=== PATIENT | female | born 1945 | race Caucasian/White ===

== ENCOUNTER 2020-05-29 14:11 | Outpatient (REF) | payer MEDICARE, SELFPAY | END 2020-05-29 14:12 | disposition home or self-care (01) | LOC: HO.LAB 14:11 | PROVIDERS: Visit Provider Internal Medicine | DX: Z20.822 Contact with and (suspected) exposure to COVID-19 (principal) | CPT/HCPCS: 36415; C9803; U0003 ==

== ENCOUNTER 2023-09-09 13:34 | Outpatient (AMB) | payer MEDICARE, SELFPAY ==
--- NOTE | 2023-09-09 13:39 | MHC.PC.OV ---
Vital Signs 09/09/23 13:40 Height 5 ft 5.5 in Weight 282 lb BMI 46.2 BP 144/86 H Blood Pressure Location Lt brachial Position Sitting Pulse 82 Pulse Source Pulse Oximeter Pulse Oximetry (%) 96 Oxygen Delivery Method Room Air Intake Visit Reasons: New Patient/Medications Allergies beeswax [BEESWAX] Allergy (Severe, Verified 09/09/23 14:12) ANAPHYLAXIS adhesive tape [ADHESIVE TAPE] Allergy (Mild, Verified 09/09/23 14:12) RASH ciprofloxacin [From CIPRO] Allergy (Mild, Verified 09/09/23 14:12) FIBROMYALGIA ISSUES Bfvolry-JDA-NsK Reductase Inhibitor [NUGORGN-UFW-DAS REDUCTASE INHIBITOR] Allergy (Mild, Verified 09/09/23 14:12) MUSCLE BREAK DOWN succinylcholine [SUCCINYLCHOLINE] Allergy (Mild, Verified 09/09/23 14:12) CANNOT WALK evolocumab [From Repatha SureClick] Adverse Reaction (Severe, Verified 09/09/23 14:12) Diarrhea metoprolol Adverse Reaction (Severe, Verified 09/09/23 14:12) Dizziness topiramate Adverse Reaction (Severe, Verified 09/09/23 14:12) Anxiety Medication List - Last Reconciled 09/09/23 by Rosario Castillo MD ascorbate calcium (vitamin C) 500 mg PO DAILY aspirin 81 mg PO DAILY atenolol 25 mg PO DAILY Bacillus coagulans cells PO calcium carbonate (Calcium) 600 mg PO DAILY celecoxib (Celebrex) 200 mg PO DAILY cholecalciferol (vitamin D3) 25 mcg PO DAILY colesevelam (WelChol) 625 mg PO BID diazepam 5 mg PO BEDTIME PRN estradiol 0.01%(0.1mg/gram) 1 g vaginal QWEEK ezetimibe (Zetia) 10 mg PO DAILY ferrous sulfate (FeroSul) 325 mg PO DAILY fluticasone propionate 50 mcg/actuation 2 sprays intranasal DAILY gabapentin 600 mg PO BEDTIME gabapentin 300 mg PO QAM levothyroxine (Levoxyl) 150 mcg PO DAILY lorazepam (Ativan) 0.5 mg PO BEDTIME PRN magnesium 250 mg PO DAILY melatonin 15 mg PO BEDTIME PRN meloxicam 15 mg PO DAILY metformin 1,000 mg PO BID niacin 500 mg PO BID pantoprazole (Protonix) 40 mg PO DAILY pioglitazone (Actos) 30 mg PO DAILY tizanidine 4 mg PO BEDTIME PRN triamcinolone acetonide 0.1% 1 appl topical DAILY venlafaxine ER 150 mg PO DAILY Tobacco use date assessed: 09/09/23 Fall risk assessment: No Falls in past year Last assessed Fall Risk: 09/09/23 Dental Screening Dental Screen Date: 09/09/23 Did you have a dental visit in the last 12 months?: Yes Did you have a dental problem in the last 6 months where you did not have access to dental care?: No Was dental information given to patient?: Patient has dentist HPI New Patient/Medications HPI Details 78-year-old obese female with diabetes mellitus hypothyroidism hypercholesterolemia obstructive sleep apnea renal insufficiency and hepatic steatosis coming in for the 1st time. AICn - has been good- does see ENDO in [facility] Dr. Green. Dx with fibromylagia- on gabapentin, gets blood work Q [address] Curry has cataract mild macular deg. , UTI states macrodantin state not working but cephalexin works. also has diverticulitis cephalexin and flagyl works PFSH Medical History (Updated 09/09/23 @ 14:48 by Rosario Castillo MD) Diverticular disease Surgical History (Updated 09/07/23 @ 16:33 by Rosario Castillo MD) H/O vaginal hysterectomy Social History Housing: House Patient Tobacco Use Status: Never used Tobacco Tobacco use type: Cigarette e-Cigarette/Vaping Use: Never Used Second Hand Smoke Exposure: No service: No Current occupational status: retired and disabled Cognitive needs: No Hearing needs: No Vision needs: Yes Questionnaire PHQ-9 Over the last 2 weeks, how often have you been bothered by any of the following problems? 1. Little interest or pleasure in doing things: not at all 2. Feeling down, depressed, or hopeless: not at all 3. Trouble falling or staying asleep, or sleeping too much: not at all 4. Feeling tired or having little energy: not at all 5. Poor appetite or overeating: not at all 6. Feeling bad about yourself - or that you are a failure or have let yourself or your family down: not at all 7. Trouble concentrating on things, such as reading the newspaper or watching television: not at all 8. Moving or speaking so slowly that other people could have noticed. Or the opposite - being so fidgety or restless that you have been moving around a lot more than usual: not at all 9. Thoughts that you would be better off or of hurting yourself in some way: not at all Total score: 0 Depression Screening Interpretation: Negative Depression Screening Done: Yes Source: Developed by Drs. Mann Joseph, Lynn Calderón, Alexi Mckeon and colleagues, with an educational kosta from [employer]. Thrive Questionnaire Date Thrive assessed: 09/09/23 I am a: Patient What is your living situation today?: I have a steady place to live Within the past 12 months, did the food you bought not last and you didn't have the money to get more?: Never true Within the past 12 months, did you worry whether your food would run out before you got money to buy more?: Never true Do you have trouble paying for medicines?: No Do you have trouble getting transportation to medical appointments?: No Do you have trouble paying your heating and electricity bill?: No Do you have trouble taking care of your child, family member or friend?: No Do you have trouble with day-to-day activities such as bathing, preparing meals, shopping, managing finances, etc.?: No Are you currently unemployed and looking for a job?: No Are you interested in more education?: No Currently or been in a relationship where the following occur: no concerns reported THRIVE Score: 0 AUDIT C Alcohol Use Questionnaire (AUDIT-C) 1. How often do you have a drink containing alcohol?: Never 3. How often do you have six or more drinks on one occasion?: Never Total Score: 0 TROY-7 AMB Questionnaire TROY-7 Date TROY - 7 assessed: 09/09/23 Feeling nervous, anxious, or on edge: 0 = Not at all Not being able to stop or control worryin = Not at all Worrying too much about different things: 0 = Not at all Trouble relaxin = Not at all Being so restless that it is hard to sit still: 0 = Not at all Becoming easily annoyed or irritable: 0 = Not at all Feeling afraid as if something awful might happen: 0 = Not at all Total TROY-7 score (0-4 normal; 5-9 mild; 10-14 moderate; 15-21 severe): 0 Source: Developed by Drs. Mann Joseph, Lynn Calderón, Alexi Mckeon and colleagues, with an educational kosta from [employer]. Physical exam (Primary Care) Vital Signs: Last Vital Signs Pulse 82 09/09/23 13:40 BP 144/86 H 09/09/23 13:40 Pulse Ox 96 09/09/23 13:40 Oxygen Delivery Method Room Air 09/09/23 13:40 BMI result Body Mass Index 46.2 Tobacco/Smoking Status: Tobacco use Status Tobacco use date assessed 09/09/23 09/09/23 14:27 Patient Tobacco Use Status Never used Tobacco 09/09/23 14:27 Tobacco use type Cigarette 09/09/23 14:27 e-Cigarette/Vaping Use Never Used 09/09/23 14:27 PHQ-9: PHQ-9 Score PHQ-9: Total score 0 09/09/23 14:27 Depression Screening Interpretation: Negative Thrive Assessment: Date of Thrive Assessment Date Thrive assessed 09/09/23 09/09/23 13:40 Currently or been in a relationship where the following occur: no concerns reported Const General: alert; No acute distress Eyes Conjunctivae: conjunctivae normal Resp Auscultation: clear to auscultation bilaterally Cardio Rate: regular rate Rhythm: regular rhythm GI Inspection: Yes normal to inspection Extrem General: Yes normal to inspection and No edema Results AMB Hemoglobin A1c AMB Hemoglobin A1c 5.4 % Last Edit by April Parekh CMA on 09/09/23 14:28 Assessment and Plan Assessment & Plan (1) Type 2 diabetes mellitus with hyperglycemia: Code(s): E11.65 - Type 2 diabetes mellitus with hyperglycemia Plan: Decrease the amount of carbohydrate intake, pasta, bread, rice and potatoes are all sugar and that is aside from all the sweet stuff, remember that fruits are good but they are Sweet also. Hemoglobin A1c goal of less than 7.0. seeing ENDO (2) Hypercholesterolemia: Code(s): E78.00 - Pure hypercholesterolemia, unspecified Plan: Avoid fried foods, chicken skin, eggs, butter margarine, pastries and meat. Be it pork or beef they have a lot of cholesterol LDL goal of less than 100 and triglyceride of less than 150.cannot tolerate Statins (3) Hypothyroid: Code(s): E03.9 - Hypothyroidism, unspecified Plan: Will need retesting. sees ENDO (4) BROWN (nonalcoholic steatohepatitis): Code(s): K75.81 - Nonalcoholic steatohepatitis (BROWN) Plan: Low-fat diet and exercise (5) Obstructive sleep apnea: Comment: CPAP [address] Darling Pulmonary Code(s): G47.33 - Obstructive sleep apnea (adult) (pediatric) Plan: continues to use the CPAP > 4 hours and benefits patient (6) Renal insufficiency: Code(s): N28.9 - Disorder of kidney and ureter, unspecified Plan: Will need follow-up., keep well hydrated (7) Generalized anxiety disorder: Comment: decline counselling 08/2023 Code(s): F41.1 - Generalized anxiety disorder (8) Hypertension: Code(s): I10 - Essential (primary) hypertension (9) Vaginal atrophy: Code(s): N95.2 - Postmenopausal atrophic vaginitis (10) Breast cancer screening by mammogram: Code(s): Z12.31 - Encounter for screening mammogram for malignant neoplasm of breast (11) Cervical disc herniation: Comment: 07/2007 c 5-6 LEft impinging SC mild L sided neural formaminal stenosis injections PSS Code(s): M50.20 - Other cervical disc displacement, unspecified cervical region Orders: Orders XR DEXA axial skeleton Today E11.65 - Type 2 diabetes mellitus with hyperglycemia, M81.0 - Age-related osteoporosis without current pathological fracture AMB Hemoglobin A1c Today Z13.9 - Encounter for screening, unspecified MM tomosynthesis screening BI Today Z12.31 - Encounter for screening mammogram for malignant neoplasm of breast Medications: New atenolol 25 mg PO DAILY 90 days 90 tabs 3RF I10 - Essential (primary) hypertension venlafaxine ER 150 mg PO DAILY 90 caps 0RF F41.1 - Generalized anxiety disorder estradiol 0.01%(0.1mg/gram) 0.25 appful vaginal 2XW 42.5 grams 1RF N95.2 - Postmenopausal atrophic vaginitis Coding Level of Care Code New Pt Level 4 (44032) Diagnoses Type 2 diabetes mellitus with hyperglycemia E11.65 Hypercholesterolemia E78.00 Hypothyroid E03.9 BROWN (nonalcoholic steatohepatitis) K75.81 Obstructive sleep apnea G47.33 Renal insufficiency N28.9 Generalized anxiety disorder F41.1 Hypertension I10 Vaginal atrophy N95.2 Breast cancer screening by mammogram Z12.31 Cervical disc herniation M50.20
[2023-09-09 13:40] VITALS: BP 144/86; PULSE 82; O2SAT 96; BMI 46.2
== END 2023-09-09 15:07 | disposition home or self-care (01) ==
PROVIDERS: PCP Internal Medicine; Visit Provider Internal Medicine
DX: E11.65 Type 2 diabetes mellitus with hyperglycemia (principal); E78.00 Pure hypercholesterolemia, unspecified; E03.9 Hypothyroidism, unspecified; K75.81 Nonalcoholic steatohepatitis (NASH); G47.33 Obstructive sleep apnea (adult) (pediatric); N28.9 Disorder of kidney and ureter, unspecified; F41.1 Generalized anxiety disorder; I10 Essential (primary) hypertension; N95.2 Postmenopausal atrophic vaginitis; M50.20 Other cervical disc displacement, unspecified cervical region
CPT/HCPCS: 83036; 99204

== ENCOUNTER 2024-02-09 13:26 | Outpatient (AMB) | payer MEDICARE, SELFPAY ==
--- NOTE | 2024-02-09 13:30 | MHC.PC.OV ---
Vital Signs 02/09/24 13:32 Height 5 ft 8 in Weight 288 lb BMI 43.8 BP 142/84 H Blood Pressure Location Lt brachial Position Sitting Pulse 66 Pulse Source Pulse Oximeter Pulse Oximetry (%) 96 Oxygen Delivery Method Room Air Intake Visit Reasons: PE Intake Note: Patient here for a physical exam Nurse Epidemiologist Required: No Accompanied by: Self / Same As Patient Allergies beeswax [BEESWAX] Allergy (Severe, Verified 02/09/24 13:34) ANAPHYLAXIS adhesive tape [ADHESIVE TAPE] Allergy (Mild, Verified 02/09/24 13:34) RASH ciprofloxacin [From CIPRO] Allergy (Mild, Verified 02/09/24 13:34) FIBROMYALGIA ISSUES Vwkcuod-WQT-WlK Reductase Inhibitor [YATHXBQ-UMD-LSW REDUCTASE INHIBITOR] Allergy (Mild, Verified 02/09/24 13:34) MUSCLE BREAK DOWN succinylcholine [SUCCINYLCHOLINE] Allergy (Mild, Verified 02/09/24 13:34) CANNOT WALK evolocumab [From Repatha SureClick] Adverse Reaction (Severe, Verified 02/09/24 13:34) Diarrhea metoprolol Adverse Reaction (Severe, Verified 02/09/24 13:34) Dizziness topiramate Adverse Reaction (Severe, Verified 02/09/24 13:34) Anxiety Medication List - Last Reconciled 02/09/24 by Rosario Castillo MD ascorbate calcium (vitamin C) 500 mg PO DAILY aspirin 81 mg PO DAILY atenolol 25 mg PO DAILY 90 days Bacillus coagulans cells PO calcium carbonate (Calcium 600) 600 mg PO DAILY celecoxib (Celebrex) 200 mg PO DAILY cholecalciferol (vitamin D3) 25 mcg PO DAILY colesevelam (WelChol) 625 mg PO BID diazepam 5 mg PO BEDTIME PRN estradiol 0.01%(0.1mg/gram) 0.25 appful vaginal 2XW ezetimibe (Zetia) 10 mg PO DAILY ferrous sulfate (FeroSul) 325 mg PO DAILY fluticasone propionate 50 mcg/actuation 2 sprays intranasal DAILY gabapentin 600 mg PO BEDTIME gabapentin 300 mg PO QAM levothyroxine (Levoxyl) 150 mcg PO DAILY lorazepam (Ativan) 0.5 mg PO BEDTIME PRN magnesium 250 mg PO DAILY melatonin 15 mg PO BEDTIME PRN meloxicam 15 mg PO DAILY metformin 1,000 mg PO BID niacin 500 mg PO BID pantoprazole (Protonix) 40 mg PO DAILY pioglitazone (Actos) 30 mg PO DAILY tizanidine 4 mg PO BEDTIME PRN [trazodone 25 mg PO .QD] triamcinolone acetonide 0.1% 1 appl topical DAILY venlafaxine ER 150 mg PO DAILY Tobacco use date assessed: 09/09/23 Fall risk assessment: No Falls in past year Last assessed Fall Risk: 02/09/24 Dental Screening Dental Screen Date: 02/09/24 Did you have a dental visit in the last 12 months?: Yes Did you have a dental problem in the last 6 months where you did not have access to dental care?: No Was dental information given to patient?: Patient has dentist HPI PE HPI Details 78-year-old morbidly obese female with controlled diabetes mellitus hypothyroid hypercholesterolemia Cabrera obstructive sleep apnea renal insufficiency generalized anxiety disorder hypertension coming in for physical exam last seen in August 2023. Patient's mammogram is up-to-date patient received flu vaccine and COVID vaccine in 01/15/2024. Reviewed the notes saw Ophthalmology October 2023 cataracts noted dry macular degeneration. Patient had an MRI of the cervical spine in July 2007 showing disc herniation and C5-C6 to the left impinging upon the cervical spinal cord without significant cord compression and encroaching upon the left neural foramen mild left-sided neural foraminal stenosis mild left paramedian central disc protrusion C6-C7. Seeing Dr. Norma HA. complains of arthritis pain. [facility] Medical History (Updated 02/09/24 @ 14:29 by Rosario Castillo MD) Diverticular disease Surgical History H/O vaginal hysterectomy Social History (Updated 02/09/24 @ 14:15 by Rosario Castillo MD) Housing: House Alcohol intake: never Patient Tobacco Use Status: Never used Tobacco e-Cigarette/Vaping Use: Never Used Second Hand Smoke Exposure: No service: No Current occupational status: retired and disabled Cognitive needs: No Hearing needs: No Vision needs: Yes Questionnaire PHQ-9 Over the last 2 weeks, how often have you been bothered by any of the following problems? 1. Little interest or pleasure in doing things: not at all 2. Feeling down, depressed, or hopeless: not at all 3. Trouble falling or staying asleep, or sleeping too much: not at all 4. Feeling tired or having little energy: not at all 5. Poor appetite or overeating: not at all 6. Feeling bad about yourself - or that you are a failure or have let yourself or your family down: not at all 7. Trouble concentrating on things, such as reading the newspaper or watching television: not at all 8. Moving or speaking so slowly that other people could have noticed. Or the opposite - being so fidgety or restless that you have been moving around a lot more than usual: not at all 9. Thoughts that you would be better off or of hurting yourself in some way: not at all Total score: 0 Depression Screening Interpretation: Negative Depression Screening Done: Yes Source: Developed by Drs. Mann Joseph, Lynn Calderón, Alexi Mckeon and colleagues, with an educational kosta from [employer]. Thrive Questionnaire Date Thrive assessed: 02/08/24 I am a: Patient What is your living situation today?: I have a steady place to live Within the past 12 months, did the food you bought not last and you didn't have the money to get more?: I choose not to answer this question Within the past 12 months, did you worry whether your food would run out before you got money to buy more?: I choose not to answer this question Do you have trouble paying for medicines?: I choose not to answer this question Do you have trouble getting transportation to medical appointments?: No Do you have trouble paying your heating and electricity bill?: I choose not to answer this question Do you have trouble taking care of your child, family member or friend?: No Do you have trouble with day-to-day activities such as bathing, preparing meals, shopping, managing finances, etc.?: No Are you currently unemployed and looking for a job?: No Are you interested in more education?: No Please select the resources that you would like help with: None Currently or been in a relationship where the following occur: I choose not to answer THRIVE Score: 0 AUDIT C Alcohol Use Questionnaire (AUDIT-C) 1. How often do you have a drink containing alcohol?: Never Total Score: 0 TROY-7 AMB Questionnaire TROY-7 Date TROY - 7 assessed: 02/09/24 Feeling nervous, anxious, or on edge: 0 = Not at all Not being able to stop or control worryin = Not at all Worrying too much about different things: 0 = Not at all Trouble relaxin = Not at all Being so restless that it is hard to sit still: 0 = Not at all Becoming easily annoyed or irritable: 0 = Not at all Feeling afraid as if something awful might happen: 0 = Not at all Total TROY-7 score (0-4 normal; 5-9 mild; 10-14 moderate; 15-21 severe): 0 Source: Developed by Drs. Mann Joseph, Lynn Calderón, Alexi Mckeon and colleagues, with an educational kosta from [employer]. Review of Systems Const Denies poor appetite and Denies weakness Eyes Denies no additional complaints ENT Reports Normal hearing present, Denies dizziness, Denies nasal congestion, Denies tinnitus and Denies sore throat Card Denies chest pain, Denies syncope, Denies rapid heart rate and Denies dyspnea Resp Denies cough and Denies dyspnea GI Denies change in stool character, Reports constipation, Denies diarrhea, Denies nausea and Denies vomiting Denies urinary frequency, Denies difficulty voiding and Denies dysuria Neuro Reports Normal hearing present, Denies confusion, Denies dizziness, Denies syncope and Denies weakness Psych Denies confusion Physical exam (Primary Care) Vital Signs: Last Vital Signs Pulse 66 02/09/24 13:32 BP 142/84 H 02/09/24 13:32 Pulse Ox 96 02/09/24 13:32 Oxygen Delivery Method Room Air 02/09/24 13:32 BMI result Body Mass Index 43.8 Tobacco/Smoking Status: Tobacco use Status Tobacco use date assessed 09/09/23 02/09/24 13:31 Patient Tobacco Use Status Never used Tobacco 02/09/24 13:31 Tobacco use type 02/09/24 13:44 e-Cigarette/Vaping Use Never Used 02/09/24 13:31 PHQ-9: PHQ-9 Score PHQ-9: Total score 0 02/09/24 13:44 Depression Screening Interpretation: Negative Thrive Assessment: Date of Thrive Assessment Date Thrive assessed 02/08/24 02/09/24 13:31 Currently or been in a relationship where the following occur: I choose not to answer Const General: No confusion Orientation/consciousness: No confusion HENMT Head: Yes normocephalic Ears: external ears normal and TM's normal bilaterally Face and sinus: Yes normal facial exam Mouth: moist mucous membranes Throat: Yes tonsils normal Eyes Conjunctivae: conjunctivae normal Pupils: Equal, round and reactive pupils present and Pupil accommodation reflex normal Direct Ophthalmoscopy: normal light reflex Neck Neck: No lymphadenopathy Thyroid: Thyroid normal Chest Chest palpation & inspection: normal inspection of the chest Resp Effort & Inspection: normal respiratory effort and no audible wheezes Auscultation: clear to auscultation bilaterally, no crackles, no wheezes and lung sounds not diminished Cardio Rate: regular rate Rhythm: regular rhythm Peripheral pulses: radial pulses present and dorsalis pedis present GI Other: guaiac pos stools. pin prick and pedal pulses good Palpation (GI): no masses Auscultation: normal bowel sounds and normoactive bowel sounds Skin General skin exam: no rashes or lesions noted Rashes: no rashes Neuro General: No confusion Cranial nerves: Yes Equal, round and reactive pupils present and Yes Normal hearing present Cognition (Neuro): normal cognition Gait exam (Neuro): Normal gait present Motor exam (neuro): 5/5 motor strength present throughout Deep tendon reflexes (DTR's): Right brachioradialis reflex intensity grade: 2+, Left brachioradialis reflex intensity grade: 2+, Right patellar reflex intensity grade: 2+ and Left patellar reflex intensity grade: 2+ Extrem General: No edema Assessment and Plan Assessment & Plan (1) Annual physical exam: Code(s): Z00.00 - Encounter for general adult medical examination without abnormal findings Plan: Patient is advised to eat healthy, keep well hydrated, keep active and have adequate sleep. (2) Type 2 diabetes mellitus with hyperglycemia: Code(s): E11.65 - Type 2 diabetes mellitus with hyperglycemia Plan: Decrease the amount of carbohydrate intake, pasta, bread, rice and potatoes are all sugar and that is aside from all the sweet stuff, remember that fruits are good but they are Sweet also. Hemoglobin A1c goal of less than 7.0. Patient on metformin a 1000 mg twice a day Actos 30 mg once a day (3) Hypercholesterolemia: Code(s): E78.00 - Pure hypercholesterolemia, unspecified Plan: Avoid fried foods, chicken skin, eggs, butter margarine, pastries and meat. Be it pork or beef they have a lot of cholesterol LDL goal of less than 100 and triglyceride of less than 150 patient not on any cholesterol medication patient on Zetia (4) Hypothyroid: Code(s): E03.9 - Hypothyroidism, unspecified Plan: Continue with thyroid medication patient is advised to get the blood work done (5) CABRERA (nonalcoholic steatohepatitis): Code(s): K75.81 - Nonalcoholic steatohepatitis (CABRERA) Plan: Low-fat diet and exercise (6) Obstructive sleep apnea: Comment: CPAP [address] Darling Pulmonary Code(s): G47.33 - Obstructive sleep apnea (adult) (pediatric) Plan: Continue to use the CPAP more than 4 hours a night and benefits from this. (7) Cervical disc herniation: Comment: 07/2007 c 5-6 LEft impinging SC mild L sided neural formaminal stenosis injections PSS Code(s): M50.20 - Other cervical disc displacement, unspecified cervical region Plan: Keep active (8) Generalized anxiety disorder: Comment: decline counselling 08/2023 Code(s): F41.1 - Generalized anxiety disorder Plan: Continue with present medication (9) Hypertension: Code(s): I10 - Essential (primary) hypertension Plan: Continue with blood pressure medication. Decrease salt intake and exercise patient on atenolol 25 mg once a day (10) Guaiac + stool: Code(s): R19.5 - Other fecal abnormalities Plan: will stop iron and ff up (11) Anemia: Code(s): D64.9 - Anemia, unspecified Orders: Orders Complete Blood Count Auto Diff Today D64.9 - Anemia, unspecified Reticulocyte Count Today D64.9 - Anemia, unspecified IRON PROFILE Today D64.9 - Anemia, unspecified Vitamin B12 and Folate Today D64.9 - Anemia, unspecified Ferritin Today D64.9 - Anemia, unspecified Medications: Changed From atenolol 25 mg PO DAILY 90 days 90 tabs 3RF I10 - Essential (primary) hypertension To atenolol 50 mg PO DAILY 90 days 90 tabs 3RF I10 - Essential (primary) hypertension Refilled estradiol 0.01%(0.1mg/gram) 0.25 appful vaginal 2XW 42.5 grams 1RF N95.2 - Postmenopausal atrophic vaginitis venlafaxine ER 150 mg PO DAILY 90 caps 0RF F41.1 - Generalized anxiety disorder Coding Level of Care Code Est Pt Prev Care >65y(65719) Diagnoses Annual physical exam Z00.00 Type 2 diabetes mellitus with hyperglycemia E11.65 Hypercholesterolemia E78.00 Hypothyroid E03.9 CABRERA (nonalcoholic steatohepatitis) K75.81 Obstructive sleep apnea G47.33 Cervical disc herniation M50.20 Generalized anxiety disorder F41.1 Hypertension I10 Guaiac + stool R19.5 Anemia D64.9
[2024-02-09 13:32] VITALS: BP 142/84; PULSE 66; O2SAT 96; BMI 43.8
== END 2024-02-09 14:45 | disposition home or self-care (01) ==
PROVIDERS: PCP Internal Medicine; Visit Provider Internal Medicine
DX: Z00.00 Encounter for general adult medical examination without abnormal findings (principal); E11.65 Type 2 diabetes mellitus with hyperglycemia; E78.00 Pure hypercholesterolemia, unspecified; E03.9 Hypothyroidism, unspecified; K75.81 Nonalcoholic steatohepatitis (NASH); G47.33 Obstructive sleep apnea (adult) (pediatric); M50.20 Other cervical disc displacement, unspecified cervical region; F41.1 Generalized anxiety disorder; I10 Essential (primary) hypertension; R19.5 Other fecal abnormalities; D64.9 Anemia, unspecified

== ENCOUNTER → 2024-02-09 13:26 | Outpatient (BNVA) | payer MEDICARE, SELFPAY | PROVIDERS: PCP Internal Medicine; Visit Provider Internal Medicine ==

== ENCOUNTER 2024-05-26 09:53 | Outpatient (AMB) | payer MEDICARE, SELFPAY ==
[2024-05-26 09:56] VITALS: BP 136/70; PULSE 68; O2SAT 97; BMI 43.3
--- NOTE | 2024-05-26 09:56 | MHC.PC.OV ---
Vital Signs 05/26/24 09:56 Height 5 ft 8 in Weight 285 lb BMI 43.3 BP 136/70 Blood Pressure Location Lt brachial Position Sitting Pulse 68 Pulse Source Pulse Oximeter Pulse Oximetry (%) 97 Oxygen Delivery Method Room Air Intake Visit Reasons: DM, guaiac pos stools Allergies beeswax [BEESWAX] Allergy (Severe, Verified 05/26/24 09:57) ANAPHYLAXIS adhesive tape [ADHESIVE TAPE] Allergy (Mild, Verified 05/26/24 09:57) RASH ciprofloxacin [From CIPRO] Allergy (Mild, Verified 05/26/24 09:57) FIBROMYALGIA ISSUES Isjatyk-NEA-AgX Reductase Inhibitor [PEDIRJF-FAG-KHS REDUCTASE INHIBITOR] Allergy (Mild, Verified 05/26/24 09:57) MUSCLE BREAK DOWN succinylcholine [SUCCINYLCHOLINE] Allergy (Mild, Verified 05/26/24 09:57) CANNOT WALK evolocumab [From Repatha SureClick] Adverse Reaction (Severe, Verified 05/26/24 09:57) Diarrhea metoprolol Adverse Reaction (Severe, Verified 05/26/24 09:57) Dizziness topiramate Adverse Reaction (Severe, Verified 05/26/24 09:57) Anxiety icosapent ethyl [From Vascepa] Adverse Reaction (Intermediate, Unverified 05/26/24 10:37) Diarrhea Tobacco use date assessed: 05/26/24 Fall risk assessment: No Falls in past year Last assessed Fall Risk: 05/26/24 Dental Screening Dental Screen Date: 05/26/24 Did you have a dental visit in the last 12 months?: No Did you have a dental problem in the last 6 months where you did not have access to dental care?: No Was dental information given to patient?: Patient has dentist HPI DM, guaiac pos stools HPI Details The patient is a 79-year-old female presenting with concerns regarding hyperlipidemia and chronic kidney disease. The patient was supposed to have cholesterol levels checked in April but delayed until after the holidays. She cannot tolerate statins and is currently on Zetia, with cholesterol at 146 in January, which is above target due to diabetes. Recent trials of Nexlitol, Bempedoic acid, and Vasepa fish oil have led to adverse effects like diarrhea. The patient experiences stomach pain with the recommended dosage of Wellchol and has reduced intake. Concerns are heightened due to potential cost increases of medications like estradiol cream, which has increased to tier 3, prompting the patient to source it affordably online. The patient adheres to a diet limiting fried foods and remains compliant with CPAP usage for obstructive sleep apnea. Lisinopril was discussed for kidney protection, with current Valsartan dosing increased due to blood pressure variability. Current eGFR slightly improved to 54 from 52. There are no plans to change dietary habits significantly, such as milk consumption, despite potential recommendations for increased water intake. Depression is noted as seasonal in nature, requiring Venlafaxine, with no active counseling in place. Other health management discussions included monitoring bone density following an unremarkable recent scan, continuing an active lifestyle per capacity, and a negative stool test done while on iron supplements. Family history includes psoriatic arthritis in her daughter. [facility]LY [facility] Medical History (Updated 02/20/24 @ 17:17 by Rosario Castillo MD) Diverticular disease Surgical History H/O vaginal hysterectomy Social History (Updated 02/09/24 @ 14:15 by Rosario Castillo MD) Housing: House Alcohol intake: never Patient Tobacco Use Status: Never used Tobacco Tobacco use type: Cigarette e-Cigarette/Vaping Use: Never Used Second Hand Smoke Exposure: No service: No Current occupational status: retired and disabled Cognitive needs: No Hearing needs: No Vision needs: Yes Questionnaire PHQ-9 Over the last 2 weeks, how often have you been bothered by any of the following problems? 1. Little interest or pleasure in doing things: not at all 2. Feeling down, depressed, or hopeless: not at all 3. Trouble falling or staying asleep, or sleeping too much: not at all 4. Feeling tired or having little energy: not at all 5. Poor appetite or overeating: not at all 6. Feeling bad about yourself - or that you are a failure or have let yourself or your family down: not at all 7. Trouble concentrating on things, such as reading the newspaper or watching television: not at all 8. Moving or speaking so slowly that other people could have noticed. Or the opposite - being so fidgety or restless that you have been moving around a lot more than usual: not at all 9. Thoughts that you would be better off or of hurting yourself in some way: not at all Total score: 0 Depression Screening Interpretation: Negative Depression Screening Done: Yes Source: Developed by Drs. Mann Joseph, Lynn Calderón, Alexi Mckeon and colleagues, with an educational kosta from [employer]. Thrive Questionnaire Date Thrive assessed: 05/26/24 I am a: Patient What is your living situation today?: I have a steady place to live Within the past 12 months, did the food you bought not last and you didn't have the money to get more?: I choose not to answer this question Within the past 12 months, did you worry whether your food would run out before you got money to buy more?: I choose not to answer this question Do you have trouble paying for medicines?: I choose not to answer this question Do you have trouble getting transportation to medical appointments?: No Do you have trouble paying your heating and electricity bill?: I choose not to answer this question Do you have trouble taking care of your child, family member or friend?: No Do you have trouble with day-to-day activities such as bathing, preparing meals, shopping, managing finances, etc.?: No Are you currently unemployed and looking for a job?: No Are you interested in more education?: No Please select the resources that you would like help with: None Currently or been in a relationship where the following occur: I choose not to answer THRIVE Score: 0 AUDIT C Alcohol Use Questionnaire (AUDIT-C) 3. How often do you have six or more drinks on one occasion?: Never Total Score: 0 TROY-7 AMB Questionnaire TROY-7 Date TROY - 7 assessed: 05/26/24 Feeling nervous, anxious, or on edge: 0 = Not at all Not being able to stop or control worryin = Not at all Worrying too much about different things: 0 = Not at all Trouble relaxin = Not at all Being so restless that it is hard to sit still: 0 = Not at all Becoming easily annoyed or irritable: 0 = Not at all Feeling afraid as if something awful might happen: 0 = Not at all Total TROY-7 score (0-4 normal; 5-9 mild; 10-14 moderate; 15-21 severe): 0 Source: Developed by Jos Booet B.W. Stephane, Alexi Mckeon and colleagues, with an educational kosta from [employer]. Physical exam (Primary Care) Vital Signs: Last Vital Signs Pulse 68 05/26/24 09:56 BP 136/70 05/26/24 09:56 Pulse Ox 97 05/26/24 09:56 Oxygen Delivery Method Room Air 05/26/24 09:56 Care Plan Goal for BP management: guaiac stool negative BMI result Body Mass Index 43.3 Tobacco/Smoking Status: Tobacco use Status Tobacco use date assessed 05/26/24 05/26/24 10:04 Patient Tobacco Use Status Never used Tobacco 05/26/24 09:58 Tobacco use type Cigarette 05/26/24 10:04 e-Cigarette/Vaping Use Never Used 05/26/24 09:58 PHQ-9: PHQ-9 Score PHQ-9: Total score 0 05/26/24 10:33 Depression Screening Interpretation: Negative Thrive Assessment: Date of Thrive Assessment Date Thrive assessed 05/26/24 05/26/24 09:58 Currently or been in a relationship where the following occur: I choose not to answer Const General: alert; No acute distress Eyes Conjunctivae: conjunctivae normal Resp Auscultation: clear to auscultation bilaterally Cardio Rate: regular rate Rhythm: regular rhythm GI Inspection: Yes normal to inspection Extrem General: Yes normal to inspection and No edema Coding Level of Care Code Est Pt Level 4 (67470) Complex EM visit Add On G2211 Diagnoses Type 2 diabetes mellitus with hyperglycemia E11.65 Hypercholesterolemia E78.00 Hypothyroid E03.9 BROWN (nonalcoholic steatohepatitis) K75.81 Obstructive sleep apnea G47.33 Generalized anxiety disorder F41.1 Hypertension I10 Assessment & Plan Assessment & Plan (1) Type 2 diabetes mellitus with hyperglycemia: Code(s): E11.65 - Type 2 diabetes mellitus with hyperglycemia Category: Medical (2) Hypercholesterolemia: Code(s): E78.00 - Pure hypercholesterolemia, unspecified Category: Medical (3) Hypothyroid: Code(s): E03.9 - Hypothyroidism, unspecified Category: Medical (4) BROWN (nonalcoholic steatohepatitis): Code(s): K75.81 - Nonalcoholic steatohepatitis (BROWN) Category: Medical (5) Obstructive sleep apnea: Comment: CPAP [address] [facility]ling [facility] Code(s): G47.33 - Obstructive sleep apnea (adult) (pediatric) Category: Medical (6) Generalized anxiety disorder: Comment: decline counselling 08/2023 Code(s): F41.1 - Generalized anxiety disorder Category: Medical (7) Hypertension: Code(s): I10 - Essential (primary) hypertension Category: Medical Plan - Hyperlipidemia: Continue Zetia; limit other cholesterol lowering medications due to side effects. Discuss further cholesterol management with a specialist. Follow dietary guidelines to reduce cholesterol intake. - Chronic Kidney Disease Stage 3: Initiate low dose lisinopril to protect kidney function; monitor kidney function regularly. Maintain hydration and avoid NSAIDs. - Obstructive Sleep Apnea: Continue with CPAP therapy as prescribed. Monitor usage and efficacy. - Gastrointestinal side effects: Manage dosage of Wellchol to minimize stomach pain and mitigate occurrence of diarrhea with fish oil. - Depression: Continue Venlafaxine. Monitor symptoms, no immediate need for counseling. - Medication Costs: Advise on potential alternative sources for cost-management of prescriptions. - Musculoskeletal Issues: Continue current management of plantar fasciitis and TMJ disorder. Implement appropriate exercises as advised by physical therapy. - Preventive: Advise routine monitoring for bone density, liver ultrasound continuation, and encourage regular exercise to maintain bone and joint health. - Vaccinations: Follow recommended schedule; plan for next COVID-19 vaccination in July. - General Health: Encourage balanced fluid intake emphasizing water consumption; monitor for any further developing symptoms related to chronic conditions. Orders: Orders AMB Hemoglobin A1c Today Z13.9 - Encounter for screening, unspecified Medications: New lisinopril 5 mg PO DAILY 30 tabs 3RF N28.9 - Disorder of kidney and ureter, unspecified Refilled venlafaxine ER 150 mg PO DAILY 90 caps 1RF F41.1 - Generalized anxiety disorder
== END 2024-05-26 11:01 | disposition home or self-care (01) ==
PROVIDERS: PCP Internal Medicine; Visit Provider Internal Medicine
DX: E11.65 Type 2 diabetes mellitus with hyperglycemia (principal); E78.00 Pure hypercholesterolemia, unspecified; E03.9 Hypothyroidism, unspecified; K75.81 Nonalcoholic steatohepatitis (NASH); G47.33 Obstructive sleep apnea (adult) (pediatric); F41.1 Generalized anxiety disorder; I10 Essential (primary) hypertension

== ENCOUNTER → 2024-05-26 09:53 | Outpatient (BNVA) | payer MEDICARE, SELFPAY | PROVIDERS: PCP Internal Medicine; Visit Provider Internal Medicine | DX: E78.00 Pure hypercholesterolemia, unspecified (principal); E11.65 Type 2 diabetes mellitus with hyperglycemia; E78.5 Hyperlipidemia, unspecified; G47.33 Obstructive sleep apnea (adult) (pediatric); E03.9 Hypothyroidism, unspecified; K75.81 Nonalcoholic steatohepatitis (NASH); F41.1 Generalized anxiety disorder; I12.9 Hypertensive chronic kidney disease with stage 1 through stage 4 chronic kidney disease, or unspecified chronic kidney disease; E11.22 Type 2 diabetes mellitus with diabetic chronic kidney disease; N18.9 Chronic kidney disease, unspecified; Z99.89 Dependence on other enabling machines and devices | CPT/HCPCS: 96127; 99212 ==

== ENCOUNTER 2024-09-01 10:57 | Outpatient (AMB) | payer MEDICARE, SELFPAY ==
--- NOTE | 2024-09-01 11:05 | MHC.PC.OV ---
Vital Signs 09/01/24 11:06 Height 5 ft 8 in Weight 282 lb BMI 42.9 BP 134/78 Blood Pressure Location Lt brachial Position Sitting Pulse 64 Pulse Source Pulse Oximeter Pulse Oximetry (%) 99 Oxygen Delivery Method Room Air Intake Visit Reasons: DM Allergies beeswax [BEESWAX] Allergy (Severe, Verified 09/01/24 11:06) ANAPHYLAXIS adhesive tape [ADHESIVE TAPE] Allergy (Mild, Verified 09/01/24 11:06) RASH ciprofloxacin [From CIPRO] Allergy (Mild, Verified 09/01/24 11:06) FIBROMYALGIA ISSUES Oocstas-SKY-WyC Reductase Inhibitor [KPIGLRH-ZVK-RWS REDUCTASE INHIBITOR] Allergy (Mild, Verified 09/01/24 11:06) MUSCLE BREAK DOWN succinylcholine [SUCCINYLCHOLINE] Allergy (Mild, Verified 09/01/24 11:06) CANNOT WALK evolocumab [From Repatha SureClick] Adverse Reaction (Severe, Verified 09/01/24 11:06) Diarrhea metoprolol Adverse Reaction (Severe, Verified 09/01/24 11:06) Dizziness topiramate Adverse Reaction (Severe, Verified 09/01/24 11:06) Anxiety icosapent ethyl [From Vascepa] Adverse Reaction (Intermediate, Verified 09/01/24 11:06) Diarrhea lisinopril Adverse Reaction (Intermediate, Unverified 09/01/24 11:54) cough Medication List - Last Reconciled 09/01/24 by Rosario Castillo MD ascorbate calcium (vitamin C) 500 mg PO DAILY aspirin 81 mg PO DAILY atenolol 50 mg PO DAILY 90 days Bacillus coagulans cells PO calcium carbonate (Calcium 600) 600 mg PO DAILY celecoxib (Celebrex) 200 mg PO DAILY cholecalciferol (vitamin D3) 25 mcg PO DAILY colesevelam (WelChol) 625 mg PO BID cyanocobalamin (vitamin B-12) 1,000 mcg PO DAILY diazepam 5 mg PO BEDTIME PRN echinacea 760 mg PO DAILY estradiol 0.01%(0.1mg/gram) 0.25 appful vaginal 2XW ezetimibe (Zetia) 10 mg PO DAILY ferrous sulfate (FeroSul) 325 mg PO DAILY fluticasone propionate 50 mcg/actuation 2 sprays intranasal DAILY gabapentin 600 mg PO BEDTIME gabapentin 300 mg PO QAM garlic 1,000 mg PO DAILY bnpzwtlz-nsp-mxbku-wqa832-yllj 500-500-66.7 mg (Wtrvwxjgvqk-Wunjhbzrknk-VKQ (with antiox)) tabs PO levothyroxine (Levoxyl) 150 mcg PO DAILY lisinopril 5 mg PO DAILY lorazepam (Ativan) 0.5 mg PO BEDTIME PRN magnesium 250 mg PO DAILY melatonin 15 mg PO BEDTIME PRN meloxicam 15 mg PO DAILY metformin 1,000 mg PO BID xdjzpiwh-jjhf-JI-calcium-mins 18 mg iron-400 mcg-500 mg Ca (Women's One Daily) tabs PO niacin 500 mg PO BID omega 2-iau-sxe-fish oil 1,200 (144-216) mg (Fish Oil) caps PO oxybutynin chloride ER 5 mg PO DAILY pantoprazole (Protonix) 40 mg PO DAILY pioglitazone (Actos) 30 mg PO DAILY pyridoxine (vitamin B6) 100 mg PO DAILY tizanidine 4 mg PO BEDTIME PRN [trazodone 25 mg PO .QD] triamcinolone acetonide 0.1% 1 appl topical DAILY venlafaxine ER 150 mg PO DAILY zinc acetate (Galzin) 50 mg PO DAILY Tobacco use date assessed: 05/26/24 Fall risk assessment: No Falls in past year Last assessed Fall Risk: 09/01/24 Dental Screening Dental Screen Date: 05/26/24 FOR[facility] Medical History (Updated 09/01/24 @ 12:01 by Rosario Castillo MD) Diverticular disease Surgical History H/O vaginal hysterectomy Social History (Updated 02/09/24 @ 14:15 by Rosario Castillo MD) Housing: House Alcohol intake: never Patient Tobacco Use Status: Never used Tobacco Tobacco use type: Cigarette e-Cigarette/Vaping Use: Never Used Second Hand Smoke Exposure: No service: No Current occupational status: retired and disabled Cognitive needs: No Hearing needs: No Vision needs: Yes Questionnaire PHQ-9 Over the last 2 weeks, how often have you been bothered by any of the following problems? 1. Little interest or pleasure in doing things: not at all 2. Feeling down, depressed, or hopeless: not at all 3. Trouble falling or staying asleep, or sleeping too much: not at all 4. Feeling tired or having little energy: not at all 5. Poor appetite or overeating: not at all 6. Feeling bad about yourself - or that you are a failure or have let yourself or your family down: not at all 7. Trouble concentrating on things, such as reading the newspaper or watching television: not at all 8. Moving or speaking so slowly that other people could have noticed. Or the opposite - being so fidgety or restless that you have been moving around a lot more than usual: not at all 9. Thoughts that you would be better off or of hurting yourself in some way: not at all Total score: 0 Depression Screening Interpretation: Negative Depression Screening Done: Yes Source: Developed by Drs. Mann Joseph, Lynn Calderón, Alexi Mckeon and colleagues, with an educational kosta from [employer]. Thrive Questionnaire Date Thrive assessed: 05/26/24 AUDIT C Alcohol Use Questionnaire (AUDIT-C) 3. How often do you have six or more drinks on one occasion?: Never Total Score: 0 TROY-7 AMB Questionnaire TROY-7 Date TROY - 7 assessed: 05/26/24 Source: Developed by Drs. Mann Joseph, Lynn Calderón, Alexi Mckeon and colleagues, with an educational kosta from [employer]. Physical exam (Primary Care) Vital Signs: Last Vital Signs Pulse 64 09/01/24 11:06 BP 134/78 09/01/24 11:06 Pulse Ox 99 09/01/24 11:06 Oxygen Delivery Method Room Air 09/01/24 11:06 BMI result Body Mass Index 42.9 Tobacco/Smoking Status: Tobacco use Status Tobacco use date assessed 05/26/24 09/01/24 11:07 Patient Tobacco Use Status Never used Tobacco 09/01/24 11:07 Tobacco use type Cigarette 09/01/24 11:07 e-Cigarette/Vaping Use Never Used 09/01/24 11:07 PHQ-9: PHQ-9 Score PHQ-9: Total score 0 09/01/24 11:45 Depression Screening Interpretation: Negative Thrive Assessment: Date of Thrive Assessment Date Thrive assessed 05/26/24 09/01/24 11:07 Const General: alert; No acute distress Eyes Conjunctivae: conjunctivae normal Resp Auscultation: clear to auscultation bilaterally Cardio Rate: regular rate Rhythm: regular rhythm GI Inspection: Yes normal to inspection Extrem General: Yes normal to inspection and No edema Coding Level of Care Code Est Pt Level 4 (66300) Complex EM visit Add On G2211 Diagnoses Type 2 diabetes mellitus with hyperglycemia E11.65 Hypercholesterolemia E78.00 Hypothyroid E03.9 BROWN (nonalcoholic steatohepatitis) K75.81 Obstructive sleep apnea G47.33 Generalized anxiety disorder F41.1 Hypertension I10 Breast calcification, right R92.1 Urge incontinence N39.41 Dental abscess K04.7 Numbness of right hand R20.0 Assessment & Plan Assessment & Plan (1) Type 2 diabetes mellitus with hyperglycemia: Comment: [facility] Code(s): E11.65 - Type 2 diabetes mellitus with hyperglycemia Category: Medical Plan: Decrease the amount of carbohydrate intake, pasta, bread, rice and potatoes are all sugar and that is aside from all the sweet stuff, remember that fruits are good but they are Sweet also. Hemoglobin A1c goal of less than 7.0. Patient on metformin a 1000 mg twice a day pioglitazone 30 mg once a day (2) Hypercholesterolemia: Code(s): E78.00 - Pure hypercholesterolemia, unspecified Category: Medical Plan: Avoid fried foods, chicken skin, eggs, butter margarine, pastries and meat. Be it pork or beef they have a lot of cholesterol LDL goal of less than 100 and triglyceride of less than 150 on Zetia 10 mg once a day (3) Hypothyroid: Code(s): E03.9 - Hypothyroidism, unspecified Category: Medical Plan: Continue with thyroid medication (4) BROWN (nonalcoholic steatohepatitis): Code(s): K75.81 - Nonalcoholic steatohepatitis (BROWN) Category: Medical Plan: Low-fat diet and exercise (5) Obstructive sleep apnea: Comment: CPAP [address] [facility] Code(s): G47.33 - Obstructive sleep apnea (adult) (pediatric) Category: Medical Plan: Continue to use the CPAP more than 4 hours a night and benefits from this (6) Generalized anxiety disorder: Comment: decline counselling 08/2023 Code(s): F41.1 - Generalized anxiety disorder Category: Medical Plan: Continue with present medication (7) Hypertension: Code(s): I10 - Essential (primary) hypertension Category: Medical Plan: Continue with blood pressure medication. Decrease salt intake and exercise on lisinopril 5 mg once a day (8) Breast calcification, right: Comment: Bilateral microcalcifications with increasing branching microcalcifications in the anterior 3rd of the right breast lower inner quadrant 2D spot magnification cc and mediolateral views are recommended 02/02/2024 Code(s): R92.1 - Mammographic calcification found on diagnostic imaging of breast Category: Medical Plan: Reminded about mammogram (9) Urge incontinence: Code(s): N39.41 - Urge incontinence Category: Medical (10) Dental abscess: Code(s): K04.7 - Periapical abscess without sinus Category: Medical Plan: will call dentist (11) Numbness of right hand: Comment: Dr. Lee Code(s): R20.0 - Anesthesia of skin Category: Medical Plan: will see ortho Plan History of Present Illness The patient is a 79-year-old female presenting with concerns focusing on the management and follow-up of her chronic medical conditions. She has been managing Type 2 diabetes mellitus, with recent labs indicating adequate control, but challenges maintaining LDL cholesterol and triglyceride targets, exacerbated by a history of statin intolerance. Her hypertension management is complicated by medication-related side effects. Additionally, the patient reports urinary symptoms consistent with stress incontinence, particularly under contexts of movement after seated periods. This is compounded by her obesity and requires ongoing management. She presents with a history of a dental abscess for which antibiotic treatment has been partially effective. There is active carpal tunnel syndrome, documented as planned for an upcoming surgical procedure to alleviate symptoms. Health Maintenance Social History - Lives independently - Attempts to maintain active lifestyle despite obesity and other health issues - Reports financial constraints in managing her health and medication expenses Review of Systems - General: Denies weight loss - HEENT: Denies vision changes - Cardiovascular: Denies chest pain - Respiratory: No current complaints noted, history of cough with previous lisinopril use - Gastrointestinal: Denies nausea or vomiting; reports frequent bowel movements - Genitourinary: Reports urinary urgency and incontinence - Musculoskeletal: Reports hand pain and dysfunction related to carpal tunnel syndrome - Endocrine: No new thyroid-related symptoms - Psychiatric: History of generalized anxiety disorder managed Physical Exam Results - Labs (June 01): Blood sugar 92, Creatinine 1.16, GFR 48, Normal electrolytes, Stable liver function, LDL 142, Total Cholesterol 225, Triglyceride 202, HDL 47, Hemoglobin A1c 5.8 - Radiological and Other Tests: Stable benign right breast calcification from July 2024 mammogram Plan The patient will maintain her current diabetes treatment and enhance adherence to dietary and physical activity improvements. Due to high cholesterol levels, the use of ezetimibe is continued to reach the LDL target. Explorative discussions around alternative antihypertensive medications will be pursued, considering adverse drug reactions. I recommended oxybutynin for urinary incontinence symptoms, with a focus on scheduled voiding techniques. The patient's medical team will manage her carpal tunnel syndrome with planned surgical intervention, and she is advised to follow up with dental services for ongoing dental abscess issues. Patient was informed and verbally consented to the use of an ambient scribe for clinic note documentation during this visit. Discussion Notes I discussed the current control of diabetes and the importance of maintaining a hemoglobin A1c below 7.0 while highlighting the intolerance to statins and continued use of ezetimibe for cholesterol management. Regarding hypertension, we reviewed the side effects experienced with lisinopril and explored the need for alternative medications. For urinary incontinence, I outlined a trial of oxybutynin with potential benefits and risks associated with anticholinergics and instructed on behavioral modifications. Conversations included upcoming surgical plans for carpal tunnel syndrome and the need for dental follow-up for persistent abscess. I emphasized regular CPAP usage and encouraged further lifestyle changes to manage obesity. Patient Instructions - Maintain prescribed diabetes medications and lifestyle changes to manage blood glucose levels. - Continue ezetimibe for cholesterol; follow low-fat diet. - Avoid lisinopril; new antihypertensive options to be discussed. - Begin oxybutynin for urinary incontinence; try scheduled voiding. - Follow up with dental professional regarding symptoms of the dental abscess. - Prepare for carpal tunnel surgical intervention as planned. - Use CPAP nightly for at least 4 hours. - Monitor symptoms and report significant changes or concerns. Medications: New oxybutynin chloride ER 5 mg PO DAILY 30 tabs 3RF N39.41 - Urge incontinence Refilled venlafaxine ER 150 mg PO DAILY 90 caps 3RF F41.1 - Generalized anxiety disorder atenolol 50 mg PO DAILY 90 tabs 3RF 90 days I10 - Essential (primary) hypertension Discontinued lisinopril Discontinued Reason: Change Referral Type 5 mg PO DAILY 30 tabs 3RF N28.9 - Disorder of kidney and ureter, unspecified
[2024-09-01 11:06] VITALS: BP 134/78; PULSE 64; O2SAT 99; BMI 42.9
--- OUTSIDE RECORDS SUMMARY | 2024-09-01 13:06 | XMS_ITS | Data Portability ---
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 T2DM in 2019- based on 2 values over 126 mg/dl. On metformin 1.5 pills in AM and 1 pill (750) PM. Have suggested incretin but cost is prohibitive. 02/07: Taking 1000 bid metformin. NAFLD: Fatty liver by u/s (05/06 and again in 12/05); - Wanted to start trulicity but too costly. Doing well on actos. Patient hasn't wanted to repeat u/s (GI following) so waiting for now. 02/07: Find out where Fibroscan test can be done. DYSLIPIDEMIA: Trying to avoid statins (was stopped in past for high CK although that persists) On niacin, zetia (and some help from pioglitazone), Cholestoff (low dose) and Vascepa (low dose) 02/07: Some diarrhea in PM- pt relates to meds but not clear. LDL high Long hx of muscle pain with elevated CPK values even when not on statins. Statins have generally not made CK levels worse and have not made myalgias worse. Previous labs have shown high CK's, low ESR, low CRP, and negative testing for other etiologies of myalgias. 05/05: Recent problem with increase in myalgias with CK up to 900's. Stopped statin and CK levels have come down (500) but LDL up over 180. OFF STATINS. On niacin and ezetimibe. LDL holding around 120-130 (2018) She has preferred to stay on meds for CV prevention. Off statins now. On multiple occasions have discussed the need for immediate evaluation if s/s muscle pain worsen. 02/06: LDL up over 170. She will look into cost of PCSK-9i 02/07: Tried PCSK9i and had severe GI s/e. Stopped. Trying to use vascepa and cholestoff but not advancing dose because still notes diarrhea in evening. NUMEROUS MUSCULOSKELETAL SX: Discussed use of CBD (topical) for m/s sx. Enhanced Provider time spent performing enhanced activities which may include, but are not limited to: reviewing tests, obtaining and/or reviewing patient history; ordering medications, test or procedures; EMR documentation; communication with patient, family, caregiver(s), VNA; pre-visit prep time communication with specialists, ER staff. Time spent: 56 (minutes) 08/07: A1c is at target. LIPIDS: niacin zetia and cholestoff and fish oil (1 bid) Thyroid doing OK but TSH remains slightly up. 02/07: A1c at target. sweats with yard work. troubles with physiatry- won't give lorazepam. Big issue continues to lipids- zetia and low dose vascepa and cholestoff. Look for fibroscan (GI scan). [email or web address] Not available 01/30/2022 22:10:52 07/31/2022 07/31/2022 HYPOTHYROID- on replacement METABOLIC SYNDROME with T2DM (2019), DYSLIPIDEMIA, and HTN. T2DM in 2019- based on 2 values over 126 mg/dl. On metformin 1.5 pills in AM and 1 pill (750) PM. Have suggested incretin but cost is prohibitive. 02/07: Taking 1000 bid metformin. 08/08: On pioglitazone too with benefit. NAFLD: Fatty liver by u/s (05/06 and again in 12/05); - Wanted to start trulicity but too costly. Doing well on actos. 08/08: Plan to repeat yearly (per discussion with GI). GI wants monitoring in case pt develops liver mass but she feels that's just paying co-pay to find the cancer that will kill her. Last study was 03/09. Agrees to yearly fibrsocan. DYSLIPIDEMIA: Trying to avoid statins (was stopped in past for high CK although that has persisted over the years whether on/off statins). Degree of severity of sx has not correlated with CK. On niacin, zetia (and some help from pioglitazone), Cholestoff (low dose) and Vascepa (low dose) 02/07: Some diarrhea in PM- pt relates to meds but not clear. LDL high 08/08: LDL good for her, although LDL still over 130. Possible option of bempedoic acid, 180 mg daily. MUSCULOSKELETAL SX AND CHRONIC CPK ELEVATION. Long hx of muscle pain with elevated CPK values even when not on statins. Statins have generally not made CK levels worse and have not made myalgias worse. Previous labs have shown high CK's, low ESR, low CRP, and negative testing for other etiologies of myalgias. 05/05: Recent problem with increase in myalgias with CK up to 900's. Stopped statin and CK levels have come down (500) but LDL up over 180. OFF STATINS. On niacin and ezetimibe. LDL holding around 120-130 (2018) She has preferred to stay on meds for CV prevention. Off statins now. On multiple occasions have discussed the need for immediate evaluation if s/s muscle pain worsen. 02/06: LDL up over 170. She will look into cost of PCSK-9i 02/07: Tried PCSK9i and had severe GI s/e. Stopped. Trying to use vascepa and cholestoff but not advancing dose because still notes diarrhea in evening. 08/08: Welchol, niacin, vascepa, cholestoff and zetia. Discussed use of CBD (topical) for m/s sx. Enhanced Provider time spent performing enhanced activities which may include, but are not limited to: reviewing tests, obtaining and/or reviewing patient history; ordering medications, test or procedures; EMR documentation; communication with patient, family, caregiver(s), VNA; pre-visit prep time communication with specialists, ER staff. Time spent: 50 (minutes) 08/07: A1c is at target. LIPIDS: niacin, zetia, Welchol, cholestoff and fish oil (1 bid) Thyroid doing OK but TSH remains slightly up. 02/07: A1c at target. sweats with yard work. troubles with physiatry- won't give lorazepam. Big issue continues to lipids- zetia and low dose vascepa and cholestoff. Look for fibroscan (GI scan). 08/08: A1c excellent on metformin/actos. Lipids use multiple meds and LDL in 140s. [email or web address] Not available 08/02/2022 15:37:41 03/19/2023 03/19/2023 HYPOTHYROID- on replacement 04/10: stable METABOLIC SYNDROME with T2DM (2019), DYSLIPIDEMIA, and HTN. T2DM in 2019- based on 2 values over 126 mg/dl. On metformin - was on 1.5 pills in AM and 1 pill (750) PM. Have suggested incretin but cost is prohibitive. 02/07: Taking 1000 bid metformin. 08/08: On pioglitazone too with benefit. 04/10: Big issue is intolerance to meds. Take metformin with food (to help avoid diarrhea) NAFLD: Fatty liver by u/s (05/06 and again in 12/05); - Wanted to start trulicity but too costly. Doing well on actos. 08/08: Plan to repeat yearly (per discussion with GI). GI wants monitoring in case pt develops liver mass but she feels that's just paying co-pay to find the cancer that will kill her. Last study was 03/09. Agrees to yearly fibrsocan. 04/10: Recent u/s- unchanged. Consider fibroscan next year. DYSLIPIDEMIA: Trying to avoid statins (was stopped in past for high CK although that has persisted over the years whether on/off statins). Degree of severity of sx has not correlated with CK. On niacin, zetia (and some help from pioglitazone), Cholestoff (low dose) and Vascepa (low dose) She has preferred to stay on meds for CV prevention. Off statins now. On multiple occasions have discussed the need for immediate evaluation if s/s muscle pain worsen. 02/06: LDL up over 170. She will look into cost of PCSK-9i 02/07: Tried PCSK9i and had severe GI s/e. Stopped. Trying to use vascepa and cholestoff but not advancing dose because still notes diarrhea in evening. 08/08: Welchol, niacin, vascepa, cholestoff and zetia. LDL good for her, although LDL still over 130. Possible option of bempedoic acid, 180 mg daily. 04/10: niacin/zetia/chol estoff/welchol/fi sh oil. LDL higher than goal. can't tolerate PCSK9i. Can't consider expensive meds (bempedoic acid offered) MUSCULOSKELETAL SX AND CHRONIC CPK ELEVATION. Long hx of muscle pain with elevated CPK values even when not on statins. Statins have generally not made CK levels worse and have not made myalgias worse. Previous labs have shown high CK's, low ESR, low CRP, and negative testing for other etiologies of myalgias. 05/05: Recent problem with increase in myalgias with CK up to 900's. Stopped statin and CK levels have come down (500) but LDL up over 180. OFF STATINS. On niacin and ezetimibe. LDL holding around 120-130 (2018) Discussed use of CBD (topical) for m/s sx. Enhanced Provider time spent performing enhanced activities which may include, but are not limited to: reviewing tests, obtaining and/or reviewing patient history; ordering medications, test or procedures; EMR documentation; communication with patient, family, caregiver(s), VNA; pre-visit prep time communication with specialists, ER staff. Time spent: 55 (minutes) 04/10. 08/07: A1c is at target. LIPIDS: niacin, zetia, Welchol, cholestoff and fish oil (1 bid) Thyroid doing OK but TSH remains slightly up. 02/07: A1c at target. sweats with yard work. troubles with physiatry- won't give lorazepam. Big issue continues to lipids- zetia and low dose vascepa and cholestoff. Look for fibroscan (GI scan). 08/08: A1c excellent on metformin/actos. Lipids use multiple meds and LDL in 140s. 04/10: a1c at goal on met/actos. take met with meals. Lipids problematic. fibroscan: stiffness less. [email or web address] Not available 03/19/2023 14:54:34 10/01/2023 10/01/2023 HYPOTHYROID- on replacement 10/09: stable METABOLIC SYNDROME with T2DM (2019), DYSLIPIDEMIA, and HTN. T2DM in 2020- based on 2 values over 126 mg/dl. On metformin - was on 1.5 pills in AM and 1 pill (750) PM. Have suggested incretin but cost is prohibitive. 02/07: Taking 1000 bid metformin. 08/08: On pioglitazone too with benefit. 04/10: Big issue is intolerance to meds. Take metformin with food (to help avoid diarrhea) 10/09: a1c at goal- under 6%. actos for MASLD. NAFLD: Fatty liver by u/s (05/06 and again in 12/05); - Wanted to start trulicity but too costly. Doing well on actos. 08/08: Plan to repeat yearly (per discussion with GI). GI wants monitoring in case pt develops liver mass but she feels that's just paying co-pay to find the cancer that will kill her. Last study was 03/09. Agrees to yearly fibrsocan. 04/10: Recent u/s- unchanged. Consider fibroscan next year. 10/09: update scan/elastography in fall. DYSLIPIDEMIA: Trying to avoid statins (was stopped in past for high CK although that has persisted over the years whether on/off statins). Degree of severity of sx has not correlated with CK. On niacin, zetia (and some help from pioglitazone), Cholestoff (low dose) and Vascepa (low dose) She has preferred to stay on meds for CV prevention. Off statins now. On multiple occasions have discussed the need for immediate evaluation if s/s muscle pain worsen. 02/06: LDL up over 170. She will look into cost of PCSK-9i 02/07: Tried PCSK9i and had severe GI s/e. Stopped. Trying to use vascepa and cholestoff but not advancing dose because still notes diarrhea in evening. 08/08: Welchol, niacin, vascepa, cholestoff and zetia. LDL good for her, although LDL still over 130. Possible option of bempedoic acid, 180 mg daily. 04/10: niacin/zetia/chol estoff/welchol/fi sh oil. LDL higher than goal. can't tolerate PCSK9i. Can't consider expensive meds (bempedoic acid offered). 10/09: niacin/zetia/chol estoff/welchol/fi sh oil. LDL up to 182. MUSCULOSKELETAL SX AND CHRONIC CPK ELEVATION. Long hx of muscle pain with elevated CPK values even when not on statins. Statins have generally not made CK levels worse and have not made myalgias worse. Previous labs have shown high CK's, low ESR, low CRP, and negative testing for other etiologies of myalgias. 05/05: Recent problem with increase in myalgias with CK up to 900's. Stopped statin and CK levels have come down (500) but LDL up over 180. OFF STATINS. On niacin and ezetimibe. LDL holding around 120-130 (2019) Discussed use of CBD (topical) for m/s sx. Enhanced Provider time spent performing enhanced activities which may include, but are not limited to: reviewing tests, obtaining and/or reviewing patient history; ordering medications, test or procedures; EMR documentation; communication with patient, family, caregiver(s), VNA; pre-visit prep time communication with specialists, ER staff. Time spent: 43 (minutes) 10/09. 08/07: A1c is at target. LIPIDS: niacin, zetia, Welchol, cholestoff and fish oil (1 bid) Thyroid doing OK but TSH remains slightly up. 02/07: A1c at target. sweats with yard work. troubles with physiatry- won't give lorazepam. Big issue continues to lipids- zetia and low dose vascepa and cholestoff. Look for fibroscan (GI scan). 08/08: A1c excellent on metformin/actos. Lipids use multiple meds and LDL in 140s. 04/10: a1c at goal on met/actos. take met with meals. Lipids problematic. fibroscan: stiffness less. 10/09: as above. LDL up but no other real options that she could tolerate or afford. thyroid OK. [email or web address] Not available 10/01/2023 19:21:56 04/06/2024 04/06/2024 HYPOTHYROID- on replacement 04/11: stable METABOLIC SYNDROME with T2DM (2019), DYSLIPIDEMIA, and HTN. T2DM in 2019- based on 2 values over 126 mg/dl. On metformin - was on 1.5 pills in AM and 1 pill (750) PM. Have suggested incretin but cost is prohibitive. 02/07: Taking 1000 bid metformin. 08/08: On pioglitazone too with benefit. 04/10: Big issue is intolerance to meds. Take metformin with food (to help avoid diarrhea) 10/09: a1c at goal- under 6%. actos for MASLD. 04/11: stable. NAFLD: Fatty liver by u/s (05/06 and again in 12/05); - Wanted to start trulicity but too costly. Doing well on actos. 08/08: Plan to repeat yearly (per discussion with GI). GI wants monitoring in case pt develops liver mass but she feels that's just paying co-pay to find the cancer that will kill her. Last study was 03/09. Agrees to yearly fibrsocan. 04/10: Recent u/s- unchanged. Consider fibroscan next year. 10/09: Had scan/elastography in fall. 04/11: Scan updated- no severe issues. DYSLIPIDEMIA: Trying to avoid statins (was stopped in past for high CK although that has persisted over the years whether on/off statins). Degree of severity of sx has not correlated with CK. On niacin, zetia (and some help from pioglitazone), Cholestoff (low dose) and Vascepa (low dose) She has preferred to stay on meds for CV prevention. Off statins now. On multiple occasions have discussed the need for immediate evaluation if s/s muscle pain worsen. 02/06: LDL up over 170. She will look into cost of PCSK-9i 02/07: Tried PCSK9i and had severe GI s/e. Stopped. Trying to use vascepa and cholestoff but not advancing dose because still notes diarrhea in evening. 08/08: Welchol, niacin, vascepa, cholestoff and zetia. LDL good for her, although LDL still over 130. Possible option of bempedoic acid, 180 mg daily. 04/10: niacin/zetia/chol estoff/welchol/fi sh oil. LDL higher than goal. can't tolerate PCSK9i. Can't consider expensive meds (bempedoic acid offered). 10/09: niacin/zetia/chol estoff/welchol/fi sh oil. LDL up to 182. 04/11: LDL better but will be stopping welchol d/t expense. Will go back to fish oil (generic). MUSCULOSKELETAL SX AND CHRONIC CPK ELEVATION. Long hx of muscle pain with elevated CPK values even when not on statins. Statins have generally not made CK levels worse and have not made myalgias worse. Previous labs have shown high CK's, low ESR, low CRP, and negative testing for other etiologies of myalgias. 05/05: Recent problem with increase in myalgias with CK up to 900's. Stopped statin and CK levels have come down (500) but LDL up over 180. OFF STATINS. On niacin and ezetimibe. LDL holding around 120-130 (2019) Discussed use of CBD (topical) for m/s sx. Enhanced Provider time spent performing enhanced activities which may include, but are not limited to: reviewing tests, obtaining and/or reviewing patient history; ordering medications, test or procedures; EMR documentation; communication with patient, family, caregiver(s), VNA; pre-visit prep time communication with specialists, ER staff. Time spent: 56 (minutes) 04/11. 08/07: A1c is at target. LIPIDS: niacin, zetia, Welchol, cholestoff and fish oil (1 bid) Thyroid doing OK but TSH remains slightly up. 02/07: A1c at target. sweats with yard work. troubles with physiatry- won't give lorazepam. Big issue continues to lipids- zetia and low dose vascepa and cholestoff. Look for fibroscan (GI scan). 08/08: A1c excellent on metformin/actos. Lipids use multiple meds and LDL in 140s. 04/10: a1c at goal on met/actos. take met with meals. Lipids problematic. fibroscan: stiffness less. 10/09: as above. LDL up but no other real options that she could tolerate or afford. thyroid OK. 04/11: LDL better when on welchol but can't tolerate BID and expensive- will re-start omega-3 (pointed out that probably won't help LDL). Discussed using skim milk more than 1-2%. melia Not available 04/06/2024 15:03:29 Plan of Treatment Reminders Order Date Submit Date Provider Last Modified By Organization Details Last Modified Time Details Appointments Follow Up, 60 2024 01:00P Sam Green MD Not available Not available Not available Lab lipid panel, serum 2023 025 [email or web address] [facility] (Centralized Electronic Ordering - All Locations), Patient Can Go To The Location Of Their Choice, 06/21/2024 12:42:09 HbA1c (hemoglo bin A1c), blood 2023 024 NICHOLAS [facility] (Centralized Electronic Ordering - All Locations), Patient Can Go To The Location Of Their Choice, 06/01/2024 20:06:04 CMP, serum or plasma 2023 025 [email or web address] [facility] (Centralized Electronic Ordering - All Locations), Patient Can Go To The Location Of Their Choice, 06/21/2024 12:42:10 microalb umin/cre atinine, mass ratio, urine 2023 [email or web address] [facility] (Centralized Electronic Ordering - All Locations), Patient Can Go To The Location Of Their Choice, 06/21/2024 12:42:10 HbA1c (hemoglo bin A1c), blood 2024 025 INTERFACE [facility] (Centralized Electronic Ordering - All Locations), Patient Can Go To The Location Of Their Choice, 06/01/2024 20:06:04 TSH, ultra-se nsitive, serum 2023 024 NICHOLAS [facility] (Centralized Electronic Ordering - All Locations), Patient Can Go To The Location Of Their Choice, 06/01/2024 20:06:05 unlisted lab - T4, free 2023 024 NICHOLAS [facility] (Centralized Electronic Ordering - All Locations), Patient Can Go To The Location Of Their Choice, 06/01/2024 20:06:06 TSH, ultra-se nsitive, serum 2024 025 INTERFACE [facility] (Centralized Electronic Ordering - All Locations), Patient Can Go To The Location Of Their Choice, 06/01/2024 20:06:05 unlisted lab - T4, free 2024 025 INTERFACE [facility] (Centralized Electronic Ordering - All Locations), Patient Can Go To The Location Of Their Choice, 06/01/2024 20:06:06 vitamin B12 + folate, serum or blood 2023 024 ATHENAFAX [facility] (Centralized Electronic Ordering - All Locations), Patient Can Go To The Location Of Their Choice, 10/06/2023 10:40:41 HbA1c (hemoglo bin A1c), blood 2022 023 [email or web address] [facility] (Centralized Electronic Ordering - All Locations), Patient Can Go To The Location Of Their Choice, 04/23/2024 10:01:26 CMP, serum or plasma 2022 023 dbolognani [facility] (Centralized Electronic Ordering - All Locations), Patient Can Go To The Location Of Their Choice, 04/23/2024 10:01:16 lipid panel, serum 2022 023 dbolognani [facility] (Centralized Electronic Ordering - All Locations), Patient Can Go To The Location Of Their Choice, 04/23/2024 10:01:50 microalb umin, urine 2022 023 dbolognani [facility] (Centralized Electronic Ordering - All Locations), Patient Can Go To The Location Of Their Choice, 04/23/2024 10:00:36 HbA1c (hemoglo bin A1c), blood 2022 024 dbolognani [facility] (Centralized Electronic Ordering - All Locations), Patient Can Go To The Location Of Their Choice, 04/23/2024 10:01:26 CMP, serum or plasma 2022 024 dbolognani [facility] (Centralized Electronic Ordering - All Locations), Patient Can Go To The Location Of Their Choice, 04/23/2024 10:01:16 lipid panel, serum 2022 024 dbolognani [facility] (Centralized Electronic Ordering - All Locations), Patient Can Go To The Location Of Their Choice, 04/23/2024 10:01:50 CMP, serum or plasma 2023 024 dbolognani [facility] (Centralized Electronic Ordering - All Locations), Patient Can Go To The Location Of Their Choice, 04/23/2024 10:01:16 lipid panel, serum 2023 024 dbolognani [facility] (Centralized Electronic Ordering - All Locations), Patient Can Go To The Location Of Their Choice, 04/23/2024 10:01:50 CMP, serum or plasma 2023 024 dbolognani [facility] (Centralized Electronic Ordering - All Locations), Patient Can Go To The Location Of Their Choice, 04/23/2024 10:01:16 lipid panel, serum 2023 024 dbolognani [facility] (Centralized Electronic Ordering - All Locations), Patient Can Go To The Location Of Their Choice, 04/23/2024 10:01:50 HbA1c (hemoglo bin A1c), blood 2023 024 dbolognani [facility] (Centralized Electronic Ordering - All Locations), Patient Can Go To The Location Of Their Choice, 04/23/2024 10:01:26 TSH, serum or plasma 2022 023 dbolognani [facility] (Centralized Electronic Ordering - All Locations), Patient Can Go To The Location Of Their Choice, 04/23/2024 10:00:58 T4, free, serum 2022 023 dbolognani [facility] (Centralized Electronic Ordering - All Locations), Patient Can Go To The Location Of Their Choice, 04/23/2024 10:01:38 T4, free, serum 2022 024 dbolognani [facility] (Centralized Electronic Ordering - All Locations), Patient Can Go To The Location Of Their Choice, 04/23/2024 10:01:38 T4, free, serum 2023 024 dbolognani [facility] (Centralized Electronic Ordering - All Locations), Patient Can Go To The Location Of Their Choice, 04/23/2024 10:01:38 HbA1c (hemoglo bin A1c), blood 2022 023 NICHOLAS [facility] (Centralized Electronic Ordering - All Locations), Patient Can Go To The Location Of Their Choice, 10/21/2022 14:40:31 CMP, serum or plasma 2022 023 NICHOLAS [facility] (Centralized Electronic Ordering - All Locations), Patient Can Go To The Location Of Their Choice, 10/21/2022 15:50:49 lipid panel, serum 2022 023 NICHOLAS [facility] (Centralized Electronic Ordering - All Locations), Patient Can Go To The Location Of Their Choice, 10/21/2022 15:54:32 microalb umin, urine 2022 023 NICHOLAS [facility] (Centralized Electronic Ordering - All Locations), Patient Can Go To The Location Of Their Choice, 10/21/2022 14:59:35 HbA1c (hemoglo bin A1c), blood 2022 023 NICHOLAS [facility] (Centralized Electronic Ordering - All Locations), Patient Can Go To The Location Of Their Choice, 04/25/2023 15:04:28 TSH, serum or plasma 2022 023 NICHOLAS [facility] (Centralized Electronic Ordering - All Locations), Patient Can Go To The Location Of Their Choice, 10/21/2022 15:54:33 T4, free, serum 2022 023 NICHOLAS [facility] (Centralized Electronic Ordering - All Locations), Patient Can Go To The Location Of Their Choice, 10/21/2022 15:54:30 T4, free, serum 2022 023 NICHOLAS [facility] (Centralized Electronic Ordering - All Locations), Patient Can Go To The Location Of Their Choice, 04/25/2023 14:58:07 TSH, serum or plasma 2022 023 NICHOLAS [facility] (Centralized Electronic Ordering - All Locations), Patient Can Go To The Location Of Their Choice, 04/25/2023 14:58:08 Referral None recorded . Procedures None recorded . Surgeries None recorded . Imaging None recorded . Medication Orders Actos 30 mg tablet 2023 024 [facility], [address] [place] [address], [id number], 04/06/2024 15:07:05 Zetia 10 mg tablet 2023 024 [facility], [address] [place] [address], [id number], 04/06/2024 15:07:06 Levoxyl 150 mcg tablet 2023 024 [facility], [address] [place] [address], [id number], 04/06/2024 15:07:05 Actos 30 mg tablet 2023 024 [facility], [address] [place] [address], [id number], 10/01/2023 19:27:15 Zetia 10 mg tablet 2023 024 [facility], [address] [place] [address], [id number], 10/01/2023 19:27:15 coleseve wallace 625 mg tablet [address] [facility], [address] [place] [address], [id number], 04/06/2024 13:39:57 metformi n ER 500 mg tablet,e xtended release 24 hr 2023 024 [facility], [address] [place] [address], [id number], 10/01/2023 19:27:12 Levoxyl 150 mcg tablet [address] [facility], [address] [place] [address], [id number], 04/06/2024 13:42:14 Zetia 10 mg tablet 2022 023 [facility] [place], [address] [place], [address], 08/02/2022 15:45:27 Levoxyl 150 mcg tablet 2022 023 [facility].Sagar Reapa, [address] [place], [address], 10/01/2023 14:26:19 Actos 30 mg tablet 2021 022 [facility], [address] [place], [address], 01/30/2022 22:12:57 Patient TargetsNo targets recorded. Patient Instructions Encounter Date Encounter Id Patient Instructions Last Modified By Organization Details Last Modified Time 01/30/2022 [id number] - Get labs done every 3 months - Continue taking thyroid hormone every day away from other food and especially from other minerals like calcium (dairy), iron, magnesium, etc. - Contact office if any symptoms of low thyroid (excess fatigue, unexplained weight gain, feeling much more cold than usual, constipation, very dry skin) or excess thyroid (heart racing, unexplained weight loss, feeling jittery/nervous/ anxious, change in frequency of moving bowels, tremors, or insomnia) - Watch diet and continue your good efforts at activity. - Stay on metformin. - Continue on niacin, zetia (ezetemibe), vascepa (fish oil) and CholestOff. Try to increase doses as tolerated. [email or web address] Not available 01/30/2022 22:10:49 6+ months/ 60 minutes (in-person). Not available 01/29/2022 08:59:02 07/31/2022 [id number] - Get labs done every 3 months - Continue taking thyroid hormone every day away from other food and especially from other minerals like calcium (dairy), iron, magnesium, etc. - Contact office if any symptoms of low thyroid (excess fatigue, unexplained weight gain, feeling much more cold than usual, constipation, very dry skin) or excess thyroid (heart racing, unexplained weight loss, feeling jittery/nervous/ anxious, change in frequency of moving bowels, tremors, or insomnia) - Watch diet and continue your good efforts at activity. - Stay on metformin and pioglitazone (actos). - Continue on niacin, zetia (ezetemibe), vascepa (fish oil), welchol and CholestOff. [email or web address] Not available 08/02/2022 15:44:41 6+ months/ 60 minutes (in-person). Not available 07/31/2022 08:34:46 03/19/2023 [id number] - Get labs done every 3 months - Continue taking thyroid hormone every day away from other food and especially from other minerals like calcium (dairy), iron, magnesium, etc. - Contact office if any symptoms of low thyroid (excess fatigue, unexplained weight gain, feeling much more cold than usual, constipation, very dry skin) or excess thyroid (heart racing, unexplained weight loss, feeling jittery/nervous/ anxious, change in frequency of moving bowels, tremors, or insomnia) - Watch diet and continue your good efforts at activity. - Stay on metformin and pioglitazone (actos). - Try taking metformin with food/meals. - Continue on niacin, zetia (ezetemibe), fish oil, welchol and CholestOff. [email or web address] Not available 03/19/2023 14:59:30 6+ months/ 60 minutes (in-person). Not available 03/18/2023 08:50:11 10/01/2023 [id number] - Get labs done every 3 months - Continue taking thyroid hormone every day away from other food and especially from other minerals like calcium (dairy), iron, magnesium, etc. - Contact office if any symptoms of low thyroid (excess fatigue, unexplained weight gain, feeling much more cold than usual, constipation, very dry skin) or excess thyroid (heart racing, unexplained weight loss, feeling jittery/nervous/ anxious, change in frequency of moving bowels, tremors, or insomnia) - Watch diet and continue your good efforts at activity. - Stay on metformin and pioglitazone (actos). - Try taking metformin with food/meals. - Continue on niacin, zetia (ezetemibe), fish oil, welchol and CholestOff. [email or web address] Not available 10/01/2023 15:08:23 6+ months/ 60 minutes (in-person). Not available 09/29/2023 13:40:00 04/06/2024 [id number] - Get labs done every 3 months - Continue taking thyroid hormone every day away from other food and especially from other minerals like calcium (dairy), iron, magnesium, etc. - Contact office if any symptoms of low thyroid (excess fatigue, unexplained weight gain, feeling much more cold than usual, constipation, very dry skin) or excess thyroid (heart racing, unexplained weight loss, feeling jittery/nervous/ anxious, change in frequency of moving bowels, tremors, or insomnia) - Watch diet and continue your good efforts at activity. - Stay on metformin and pioglitazone (actos). - Try taking metformin with food/meals. - Continue on niacin, zetia (ezetemibe), and CholestOff. You told me you're coming off welchol due to cost and plan to change to fish oil. - Try using more skim milk and less 2%. [email or web address] Not available 04/06/2024 15:06:10 6+ months/ 60 minutes (in-person). Not available 04/05/2024 09:11:24 Reason for Referral None Reported. Results Created Date Observation Date Name Description Value Unit Range Abnormal Flag Note LastModifiedBy Organization Detail LastModifiedTime 01/26/2001/25/2022 COMPR EHENS LAZARO METAB OLIC PANL glucose 101 mg/dL (70-99 ) high Not Available [facility] (Centralized Electronic Ordering - All Locations) Patient Can Go To The Location Of Their Choice, [id number] 01/25/2022 16:34:39 01/26/20 22 01/25/2022 COMPR EHENS LAZARO METAB OLIC PANL BUN 20 mg/dL (8-23) Not Available [facility] (Centralized Electronic Ordering - All Locations) Patient Can Go To The Location Of Their Choice, [id number] 01/25/2022 16:34:39 01/26/20 22 01/25/2022 COMPR EHENS LAZARO METAB OLIC PANL creatinine 1.1 mg/dL (0.5-1 .0) high Not Available [facility] (Centralized Electronic Ordering - All Locations) Patient Can Go To The Location Of Their Choice, 01/25/2022 16:34:39 01/26/2001/25/2022 COMPR EHENS LAZARO METAB OLIC PANL sodium 140 mmol/ L (133-1 45) Not Available [facility] (Centralized Electronic Ordering - All Locations) Patient Can Go To The Location Of Their Choice, 01/25/2022 16:34:39 01/26/2001/25/2022 COMPR EHENS LAZARO METAB OLIC PANL potassium 4.5 mmol/ L (3.6-5 .2) Not Available [facility] (Centralized Electronic Ordering - All Locations) Patient Can Go To The Location Of Their Choice, 01/25/2022 16:34:39 01/26/2001/25/2022 COMPR EHENS LAZARO METAB OLIC PANL chloride 101 mmol/ L (98-10 7) Not Available [facility] (Centralized Electronic Ordering - All Locations) Patient Can Go To The Location Of Their Choice, 01/25/2022 16:34:39 01/26/2001/25/2022 COMPR EHENS LAZARO METAB OLIC PANL bicarbonate 30 mmol/ L (22-29 ) high Not Available [facility] (Centralized Electronic Ordering - All Locations) Patient Can Go To The Location Of Their Choice, 01/25/2022 16:34:39 01/26/2001/25/2022 COMPR EHENS LAZARO METAB OLIC PANL anion gap 9 (4-17) Not Available [facility] (Centralized Electronic Ordering - All Locations) Patient Can Go To The Location Of Their Choice, 01/25/2022 16:34:39 01/26/2001/25/2022 COMPR EHENS LAZARO METAB OLIC PANL albumin 4.4 gm/dL (3.4-4 .8) Not Available [facility] (Centralized Electronic Ordering - All Locations) Patient Can Go To The Location Of Their Choice, 01/25/2022 16:34:39 01/26/2001/25/2022 COMPR EHENS LAZARO METAB OLIC PANL calcium 9.7 mg/dL (8.6-1 0.5) Not Available [facility] (Centralized Electronic Ordering - All Locations) Patient Can Go To The Location Of Their Choice, 01/25/2022 16:34:39 01/26/20 22 01/25/2022 COMPR EHENS LAZARO METAB OLIC PANL bilirubin,to dhaval 0.2 mg/dL (0-1.2 ) Not Available [facility] (Centralized Electronic Ordering - All Locations) Patient Can Go To The Location Of Their Choice, 01/25/2022 16:34:39 01/26/2001/25/2022 COMPR EHENS LAZARO METAB OLIC PANL total protein 6.5 gm/dL (6.2-8 .2) Not Available [facility] (Centralized Electronic Ordering - All Locations) Patient Can Go To The Location Of Their Choice, 01/25/2022 16:34:39 01/26/2001/25/2022 COMPR EHENS LAZARO METAB OLIC PANL Ag ratio 2.1 Not Available [facility] (Centralized Electronic Ordering - All Locations) Patient Can Go To The Location Of Their Choice, 01/25/2022 16:34:39 01/26/2001/25/2022 COMPR EHENS LAZARO METAB OLIC PANL AST 25 U/L (0-32) Not Available [facility] (Centralized Electronic Ordering - All Locations) Patient Can Go To The Location Of Their Choice, 01/25/2022 16:34:39 01/26/20 22 01/25/2022 COMPR EHENS LAZARO METAB OLIC PANL alk phos 92 U/L (35-10 4) Not Available [facility] (Centralized Electronic Ordering - All Locations) Patient Can Go To The Location Of Their Choice, 01/25/2022 16:34:39 01/26/2001/25/2022 COMPR EHENS LAZARO METAB OLIC PANL ALT 19 U/L (0-33) Not Available [facility] (Centralized Electronic Ordering - All Locations) Patient Can Go To The Location Of Their Choice, 01/25/2022 16:34:39 01/26/2001/25/2022 COMPR EHENS LAZARO METAB OLIC PANL estimated GFR creatinine 54 mL/mi n/1.7 3_M2 Creat inine based estim ated glome rular filtr ation (eGFR ) in adult s is calcu lated using the Natio nal Kidne y Found ation recom hayley d 2020 CKD-E PI equat ion. Estim ates GFR from serum creat inine , age and sex. Not Available [facility] (Centralized Electronic Ordering - All Locations) Patient Can Go To The Location Of Their Choice, 01/25/2022 16:34:39 01/26/20 22 01/25/2022 LIPID PANEL cholesterol, total 267 mg/dL (<200) high Not Available [facility] (Centralized Electronic Ordering - All Locations) Patient Can Go To The Location Of Their Choice, 01/25/2022 16:34:43 01/26/20 22 01/25/2022 LIPID PANEL triglyceride 185 mg/dL (<150) high Not Available [facility] (Central[facility] Ordering - All Locations) Patient Can Go To The Location Of Their Choice, 01/25/2022 16:34:43 01/26/20 22 01/25/2022 LIPID PANEL HDL chol 47 mg/dL (>39) Not Available [facility] (Centralized Electronic Ordering - All Locations) Patient Can Go To The Location Of Their Choice, 01/25/2022 16:34:43 01/26/20 22 01/25/2022 LIPID PANEL LDL cholesterol, calculated 183 mg/dL (0-130 ) high Not Available [facility] (Centralized Electronic Ordering - All Locations) Patient Can Go To The Location Of Their Choice, 01/25/2022 16:34:43 01/26/20 22 01/25/2022 LIPID PANEL non HDL cholesterol (calc) 220 mg/dL (<160) high Not Available [facility] (Centralized Electronic Ordering - All Locations) Patient Can Go To The Location Of Their Choice, 01/25/2022 16:34:43 01/26/20 22 01/25/2022 FREE T4 free T4 1.01 NG/dL (0.70- 1.80) Not Available [facility] (Centralized Electronic Ordering - All Locations) Patient Can Go To The Location Of Their Choice, 01/25/2022 16:36:16 01/26/20 22 01/25/2022 TSH TSH 3.47 uIU/m L (0.4-4 .2) Not Available [facility] (Centralized Electronic Ordering - All Locations) Patient Can Go To The Location Of Their Choice, 01/25/2022 16:36:19 01/26/20 22 01/25/2022 URINA RY MICRO ALBUM IN micro-albumi n <12.0 mg/L (<20) The urine micro album in test is desig aleta to monit or renal funct ion. When scree nadia for Bence Bell prote inuri a, urine elect ropho resis is recom hayley d. Not Available [facility] (Centralized Electronic Ordering - All Locations) Patient Can Go To The Location Of Their Choice, 01/25/2022 16:46:36 01/26/20 22 01/25/2022 URINA RY MICRO ALBUM IN malb/creat ratio UNABLE TO CALCUL ATE mg/gm (0-20) Not Available [facility] (Centralized Electronic Ordering - All Locations) Patient Can Go To The Location Of Their Choice, 01/25/2022 16:46:36 01/26/20 22 01/25/2022 URINA RY MICRO ALBUM IN urine creat for micro albumin 131.9 mg/dL Not Available [facility] (Centralized Electronic Ordering - All Locations) Patient Can Go To The Location Of Their Choice, 01/25/2022 16:46:36 01/26/2001/25/2022 HEMOG LOBIN A1C hemoglobin A1C 5.7 % (4.0-5 .6) high MONIT ORING : In known diabe tic patie nts, hemog lobin A1c targe ts shoul d be discu ssed with healt h care provi francisco. DIAGN OSTIC USE: The Ameri can Diabe rfanck Assoc iatio n (ADA) and the World Healt h Organ izati on (WHO) recom mend the use of HbA1c to diagn ose diabe franck using a thres hold of 6.5%. Patie nts who have an HbA1c betwe en 5.7% and 6.4% are consi dered at incre ased risk for devel oping diabe franck in the futur e. CAUTI ON: False ly low HbA1c resul ts may be obser candi in patie nts with hemol ytic anemi a, homoz ygous forms of abnor mal hemog lobin (e.g. SS, CC, SC), pregn pennie, recen t blood loss or hemog lobin F great er than 7%. Fruct osami ne may be used as an alter jersey test in these cases . REFER ENCE: ADA: [employer]ds of Medic al Care in Diabe fran[place] 2019, The Journ al of Clini jyoti and Appli ed Resea rc and Educa tion Volum e 43, Suppl ement 1 Not Available [facility] (Centralized Electronic Ordering - All Locations) Patient Can Go To The Location Of Their Choice, [id number] 01/25/2022 17:41:06 04/26/20 22 04/26/2022 FREE T4 free T4 1.12 NG/dL (0.70- 1.80) Not Available [facility] (Centralized Electronic Ordering - All Locations) Patient Can Go To The Location Of Their Choice, [id number] 04/26/2022 14:00:47 04/26/20 22 04/26/2022 TSH TSH 2.75 uIU/m L (0.4-4 .2) Not Available [facility] (Centralized Electronic Ordering - All Locations) Patient Can Go To The Location Of Their Choice, [id number] 04/26/2022 14:00:48 04/26/20 22 04/26/2022 HEMOG LOBIN A1C hemoglobin A1C 5.6 % (4.0-5 .6) MONIT ORING : In known diabe tic patie nts, hemog lobin A1c targe ts shoul d be discu ssed with healt h care provi francisco. DIAGN OSTIC USE: The Ameri can Diabe franck Assoc iatio n (ADA) and the World Healt h Organ izati on (WHO) recom mend the use of HbA1c to diagn ose diabe franck using a thres hold of 6.5%. Patie nts who have an HbA1c betwe en 5.7% and 6.4% are consi dered at incre ased risk for devel oping diabe franck in the futur e. CAUTI ON: False ly low HbA1c resul ts may be obser candi in patie nts with hemol ytic anemi a, homoz ygous forms of abnor mal hemog lobin (e.g. SS, CC, SC), pregn pennie, recen t blood loss or hemog lobin F great er than 7%. Fruct osami ne may be used as an alter jersey test in these cases . REFER ENCE: ADA: [employer]ds of Medic al Care in [place] fran[place] 2019, The Journ al of Clini jyoti and Appli ed Resea [facility] and Educa tion Volum e 43, Suppl ement 1 Not Available [facility] (Centralized Electronic Ordering - All Locations) Patient Can Go To The Location Of Their Choice, 04/26/2022 14:25:07 05/08/2005/08/2022 COMPR EHENS LAZARO METAB OLIC PANL glucose 108 mg/dL (70-99 ) high Not Available [facility] (Centralized Electronic Ordering - All Locations) Patient Can Go To The Location Of Their Choice, 05/08/2022 15:16:42 05/08/20 22 05/08/2022 COMPR EHENS LAZARO METAB OLIC PANL BUN 17 mg/dL (8-23) Not Available [facility] (Centralized Electronic Ordering - All Locations) Patient Can Go To The Location Of Their Choice, 05/08/2022 15:16:42 05/08/20 22 05/08/2022 COMPR EHENS LAZARO METAB OLIC PANL creatinine 1.1 mg/dL (0.5-1 .0) high Not Available [facility] (Centralized Electronic Ordering - All Locations) Patient Can Go To The Location Of Their Choice, 05/08/2022 15:16:42 05/08/20 22 05/08/2022 COMPR EHENS LAZARO METAB OLIC PANL sodium 142 mmol/ L (133-1 45) Not Available [facility] (Centralized Electronic Ordering - All Locations) Patient Can Go To The Location Of Their Choice, 05/08/2022 15:16:42 05/08/20 22 05/08/2022 COMPR EHENS LAZARO METAB OLIC PANL potassium 4.6 mmol/ L (3.6-5 .2) Not Available [facility] (Centralized Electronic Ordering - All Locations) Patient Can Go To The Location Of Their Choice, 05/08/2022 15:16:42 05/08/20 22 05/08/2022 COMPR EHENS LAZARO METAB OLIC PANL chloride 103 mmol/ L (98-10 7) Not Available [facility] (Centralized Electronic Ordering - All Locations) Patient Can Go To The Location Of Their Choice, 05/08/2022 15:16:42 05/08/20 22 05/08/2022 COMPR EHENS LAZARO METAB OLIC PANL bicarbonate 31 mmol/ L (22-29 ) high Not Available [facility] (Centralized Electronic Ordering - All Locations) Patient Can Go To The Location Of Their Choice, 05/08/2022 15:16:42 05/08/20 22 05/08/2022 COMPR EHENS LAZARO METAB OLIC PANL anion gap 8 (4-17) Not Available [facility] (Centralized Electronic Ordering - All Locations) Patient Can Go To The Location Of Their Choice, 05/08/2022 15:16:42 05/08/20 22 05/08/2022 COMPR EHENS LAZARO METAB OLIC PANL albumin 4.3 gm/dL (3.4-4 .8) Not Available [facility] (Centralized Electronic Ordering - All Locations) Patient Can Go To The Location Of Their Choice, 05/08/2022 15:16:42 05/08/20 22 05/08/2022 COMPR EHENS LAZARO METAB OLIC PANL calcium 9.3 mg/dL (8.6-1 0.5) Not Available [facility] (Centralized Electronic Ordering - All Locations) Patient Can Go To The Location Of Their Choice, 05/08/2022 15:16:42 05/08/20 22 05/08/2022 COMPR EHENS LAZARO METAB OLIC PANL bilirubin,to dhaval 0.3 mg/dL (0-1.2 ) Not Available [facility] (Centralized Electronic Ordering - All Locations) Patient Can Go To The Location Of Their Choice, 05/08/2022 15:16:42 05/08/20 22 05/08/2022 COMPR EHENS LAZARO METAB OLIC PANL total protein 6.3 gm/dL (6.2-8 .2) Not Available [facility] (Centralized Electronic Ordering - All Locations) Patient Can Go To The Location Of Their Choice, 05/08/2022 15:16:42 05/08/20 22 05/08/2022 COMPR EHENS LAZARO METAB OLIC PANL Ag ratio 2.2 Not Available [facility] (Centralized Electronic Ordering - All Locations) Patient Can Go To The Location Of Their Choice, 05/08/2022 15:16:42 05/08/20 22 05/08/2022 COMPR EHENS LAZARO METAB OLIC PANL AST 33 U/L (0-32) high Not Available [facility] (Centralized Electronic Ordering - All Locations) Patient Can Go To The Location Of Their Choice, 05/08/2022 15:16:42 05/08/20 22 05/08/2022 COMPR EHENS LAZARO METAB OLIC PANL alk phos 95 U/L (35-10 4) Not Available [facility] (Centralized Electronic Ordering - All Locations) Patient Can Go To The Location Of Their Choice, 05/08/2022 15:16:42 05/08/20 22 05/08/2022 COMPR EHENS LAZARO METAB OLIC PANL ALT 28 U/L (0-33) Not Available [facility] (Centralized Electronic Ordering - All Locations) Patient Can Go To The Location Of Their Choice, 05/08/2022 15:16:42 05/08/20 22 05/08/2022 COMPR EHENS LAZARO METAB OLIC PANL estimated GFR creatinine 53 mL/mi n/1.7 3_M2 Creat inine based estim ated glome rular filtr ation (eGFR ) in adult s is calcu lated using the Natio nal Kidne y Found ation recom hayley d 2020 CKD-E PI equat ion. Estim ates GFR from serum creat inine , age and sex. Not Available [facility] (Centralized Electronic Ordering - All Locations) Patient Can Go To The Location Of Their Choice, 05/08/2022 15:16:42 05/08/2005/08/2022 LIPID PANEL cholesterol, total 245 mg/dL (<200) high Not Available [facility] ([facility] Ordering - All Locations) Patient Can Go To The Location Of Their Choice, 05/08/2022 15:16:45 05/08/20 22 05/08/2022 LIPID PANEL triglyceride 251 mg/dL (<150) high Not Available [facility] ([facility] Ordering - All Locations) Patient Can Go To The Location Of Their Choice, 05/08/2022 15:16:45 05/08/20 22 05/08/2022 LIPID PANEL HDL chol 46 mg/dL (>39) Not Available [facility] (Centralized Electronic Ordering - All Locations) Patient Can Go To The Location Of Their Choice, 05/08/2022 15:16:45 05/08/20 22 05/08/2022 LIPID PANEL LDL cholesterol, calculated 149 mg/dL (0-130 ) high Not Available [facility] (Centralized Electronic Ordering - All Locations) Patient Can Go To The Location Of Their Choice, 05/08/2022 15:16:45 05/08/20 22 05/08/2022 LIPID PANEL non HDL cholesterol (calc) 199 mg/dL (<160) high Not Available [facility] (Centralized [facility] Ordering - All Locations) Patient Can Go To The Location Of Their Choice, 05/08/2022 15:16:45 07/27/19 23 07/26/2022 URINA RY MICRO ALBUM IN micro-albumi n <12.0 mg/L (<20) The urine micro album in test is desig aleta to monit or renal funct ion. When scree nadia for Bence Bell prote inuri a, urine elect ropho resis is recom hayley d. Not Available [facility] (Centralized Electronic Ordering - All Locations) Patient Can Go To The Location Of Their Choice, 07/26/2022 15:40:32 07/27/1907/26/2022 URINA RY MICRO ALBUM IN malb/creat ratio UNABLE TO CALCUL ATE mg/gm (0-20) Not Available [facility] (Centralized Electronic Ordering - All Locations) Patient Can Go To The Location Of Their Choice, 07/26/2022 15:40:32 07/27/19 23 07/26/2022 URINA RY MICRO ALBUM IN urine creat for micro albumin 140.6 mg/dL Not Available [facility] ([facility] Ordering - All Locations) Patient Can Go To The Location Of Their Choice, 07/26/2022 15:40:32 07/27/19 23 07/26/2022 HEMOG LOBIN A1C hemoglobin A1C 5.5 % (4.0-5 .6) MONIT ORING : In known diabe tic patie nts, hemog lobin A1c targe ts shoul d be discu ssed with healt h care provi francisco. DIAGN OSTIC USE: The Ameri can Diabe franck Assoc iatio n (ADA) and the World Healt h Organ izati on (WHO) recom mend the use of HbA1c to diagn ose diabe franck using a thres hold of 6.5%. Patie nts who have an HbA1c betwe en 5.7% and 6.4% are consi dered at incre ased risk for devel oping diabe franck in the futur eMakayla CAUTI ON: False ly low HbA1c resul ts may be obser candi in patie nts with hemol ytic anemi a, homoz ygous forms of abnor mal hemog lobin (e.g. SS, CC, SC), pregn pennie, recen t blood loss or hemog lobin F great er than 7%. Fruct osami ne may be used as an alter jesrey test in these cases . REFER ENCE: ADA: [employer] of Medic al Care in [place] fran[place] 2019, The Journ al of Clini jyoti and Appli ed Resea [facility] and Educa tion Volum e 43, Suppl ement 1 Not Available [facility] (Centralized Electronic Ordering - All Locations) Patient Can Go To The Location Of Their Choice, 07/26/2022 15:51:49 07/27/1907/26/2022 COMPR EHENS LAZARO METAB OLIC PANL glucose 94 mg/dL (70-99 ) Not Available [facility] (Centralized Electronic Ordering - All Locations) Patient Can Go To The Location Of Their Choice, 07/26/2022 18:45:13 07/27/1907/26/2022 COMPR EHENS LAZARO METAB OLIC PANL BUN 19 mg/dL (8-23) Not Available [facility] (Centralized Electronic Ordering - All Locations) Patient Can Go To The Location Of Their Choice, 07/26/2022 18:45:13 07/27/1907/26/2022 COMPR EHENS LAZARO METAB OLIC PANL creatinine 1.0 mg/dL (0.5-1 .0) Not Available [facility] (Centralized Electronic Ordering - All Locations) Patient Can Go To The Location Of Their Choice, 07/26/2022 18:45:13 07/27/1907/26/2022 COMPR EHENS LAZARO METAB OLIC PANL sodium 140 mmol/ L (133-1 45) Not Available [facility] (Centralized Electronic Ordering - All Locations) Patient Can Go To The Location Of Their Choice, 07/26/2022 18:45:13 07/27/1907/26/2022 COMPR EHENS LAZARO METAB OLIC PANL potassium 4.6 mmol/ L (3.6-5 .2) Not Available [facility] (Centralized Electronic Ordering - All Locations) Patient Can Go To The Location Of Their Choice, 07/26/2022 18:45:13 07/27/1907/26/2022 COMPR EHENS LAZARO METAB OLIC PANL chloride 102 mmol/ L (98-10 7) Not Available [facility] (Centralized Electronic Ordering - All Locations) Patient Can Go To The Location Of Their Choice, 07/26/2022 18:45:13 07/27/1907/26/2022 COMPR EHENS LAZARO METAB OLIC PANL bicarbonate 30 mmol/ L (22-29 ) high Not Available [facility] (Centralized Electronic Ordering - All Locations) Patient Can Go To The Location Of Their Choice, 07/26/2022 18:45:13 07/27/1907/26/2022 COMPR EHENS LAZARO METAB OLIC PANL anion gap 8 (4-17) Not Available [facility] (Centralized Electronic Ordering - All Locations) Patient Can Go To The Location Of Their Choice, 07/26/2022 18:45:13 07/27/1907/26/2022 COMPR EHENS LAZARO METAB OLIC PANL albumin 4.3 gm/dL (3.4-4 .8) Not Available [facility] (Centralized Electronic Ordering - All Locations) Patient Can Go To The Location Of Their Choice, 07/26/2022 18:45:13 07/27/1907/26/2022 COMPR EHENS LAZARO METAB OLIC PANL calcium 10.1 mg/dL (8.6-1 0.5) Not Available [facility] (Centralized Electronic Ordering - All Locations) Patient Can Go To The Location Of Their Choice, 07/26/2022 18:45:13 07/27/1907/26/2022 COMPR EHENS LAZARO METAB OLIC PANL bilirubin,to dhaval 0.2 mg/dL (0-1.2 ) Not Available [facility] (Centralized Electronic Ordering - All Locations) Patient Can Go To The Location Of Their Choice, 07/26/2022 18:45:13 07/27/1907/26/2022 COMPR EHENS LAAZRO METAB OLIC PANL total protein 6.7 gm/dL (6.2-8 .2) Not Available [facility] (Centralized Electronic Ordering - All Locations) Patient Can Go To The Location Of Their Choice, 07/26/2022 18:45:13 07/27/1907/26/2022 COMPR EHENS LAZARO METAB OLIC PANL Ag ratio 1.8 Not Available [facility] (Centralized Electronic Ordering - All Locations) Patient Can Go To The Location Of Their Choice, 07/26/2022 18:45:13 07/27/1907/26/2022 COMPR EHENS LAZARO METAB OLIC PANL AST 27 U/L (0-32) Not Available [facility] (Centralized Electronic Ordering - All Locations) Patient Can Go To The Location Of Their Choice, 07/26/2022 18:45:13 07/27/1907/26/2022 COMPR EHENS LAZARO METAB OLIC PANL alk phos 100 U/L (35-10 4) Not Available [facility] (Centralized Electronic Ordering - All Locations) Patient Can Go To The Location Of Their Choice, 07/26/2022 18:45:13 07/27/1907/26/2022 COMPR EHENS LAZARO METAB OLIC PANL ALT 33 U/L (0-33) Not Available [facility] (Centralized Electronic Ordering - All Locations) Patient Can Go To The Location Of Their Choice, 07/26/2022 18:45:13 07/27/1907/26/2022 COMPR EHENS LAZARO METAB OLIC PANL estimated GFR creatinine 56 mL/mi n/1.7 3_M2 Creat inine based estim ated glome rular filtr ation (eGFR ) in adult s is calcu lated using the Natio nal Kidne y Found ation recom hayley d 2020 CKD-E PI equat ion. Estim ates GFR from serum creat inine , age and sex. Not Available [facility] (Centralized Electronic Ordering - All Locations) Patient Can Go To The Location Of Their Choice, 07/26/2022 18:45:13 07/27/1907/26/2022 LIPID PANEL cholesterol, total 242 mg/dL (<200) high Not Available [facility] (Central[facility] Ordering - All Locations) Patient Can Go To The Location Of Their Choice, 07/26/2022 18:45:14 07/27/1907/26/2022 LIPID PANEL triglyceride 254 mg/dL (<150) high Not Available [facility] (Centralized [facility] Ordering - All Locations) Patient Can Go To The Location Of Their Choice, 07/26/2022 18:45:14 07/27/1907/26/2022 LIPID PANEL HDL chol 44 mg/dL (>39) Not Available [facility] (Centralized Electronic Ordering - All Locations) Patient Can Go To The Location Of Their Choice, 07/26/2022 18:45:14 07/27/1907/26/2022 LIPID PANEL LDL cholesterol, calculated 147 mg/dL (0-130 ) high Not Available [facility] (Centralized Electronic Ordering - All Locations) Patient Can Go To The Location Of Their Choice, 07/26/2022 18:45:14 07/27/1907/26/2022 LIPID PANEL non HDL cholesterol (calc) 198 mg/dL (<160) high Not Available [facility] (Centralized Electronic Ordering - All Locations) Patient Can Go To The Location Of Their Choice, 07/26/2022 18:45:14 07/27/1907/26/2022 FREE T4 free T4 1.16 NG/dL (0.70- 1.80) Not Available [facility] (Centralized Electronic Ordering - All Locations) Patient Can Go To The Location Of Their Choice, 07/26/2022 18:50:42 07/27/1907/26/2022 TSH TSH 2.24 uIU/m L (0.4-4 .2) Not Available [facility] (Centralized Electronic Ordering - All Locations) Patient Can Go To The Location Of Their Choice, 07/26/2022 18:50:43 10/22/1910/21/2022 HEMOG LOBIN A1C hemoglobin A1C 5.6 % (4.0-5 .6) MONIT ORING : In known diabe tic patie nts, hemog lobin A1c targe ts shoul d be discu ssed with healt h care provi francisco. DIAGN OSTIC USE: The Ameri can [place] fran[place] Assoc iatio n (ADA) and the World Healt h Organ izati on (WHO) recom mend the use of HbA1c to diagn ose diabe franck using a thres hold of 6.5%. Patie nts who have an HbA1c betwe en 5.7% and 6.4% are consi dered at incre ased risk for devel oping diabe franck in the futur e. CAUTI ON: False ly low HbA1c resul ts may be obser candi in patie nts with hemol ytic anemi a, homoz ygous forms of abnor mal hemog lobin (e.g. SS, CC, SC), pregn pennie, recen t blood loss or hemog lobin F great er than 7%. Fruct osami ne may be used as an alter jersey test in these cases . REFER ENCE: ADA: Stand ards of Medic al Care in [place] 2019, The Journ al of Clini jyoti and Appli ed Resea [facility] and Educa tion Volum e 43, Suppl ement 1 Not Available [facility] (Centralized Electronic Ordering - All Locations) Patient Can Go To The Location Of Their Choice, 10/21/2022 14:40:31 10/22/1910/21/2022 URINA RY MICRO ALBUM IN micro-albumi n <12.0 mg/L (<20) The urine micro album in test is desig aleta to monit or renal funct ion. When scree nadia for Bence Bell prote inuri a, urine elect ropho resis is recom hayley d. Not Available [facility] (Centralized Electronic Ordering - All Locations) Patient Can Go To The Location Of Their Choice, [id number] 10/21/2022 14:59:35 10/22/19 23 10/21/2022 URINA RY MICRO ALBUM IN malb/creat ratio UNABLE TO CALCUL ATE mg/gm (0-20) Not Available [facility] (Centralized Electronic Ordering - All Locations) Patient Can Go To The Location Of Their Choice, 10/21/2022 14:59:35 10/22/1910/21/2022 URINA RY MICRO ALBUM IN urine creat for micro albumin 92.9 mg/dL Not Available [facility] (Centralized [facility] Ordering - All Locations) Patient Can Go To The Location Of Their Choice, 10/21/2022 14:59:35 10/22/1910/21/2022 COMPR EHENS LAZARO METAB OLIC PANL glucose 112 mg/dL (70-99 ) high Not Available [facility] (Centralized Electronic Ordering - All Locations) Patient Can Go To The Location Of Their Choice, 10/21/2022 15:50:49 10/22/1910/21/2022 COMPR EHENS LAZARO METAB OLIC PANL BUN 22 mg/dL (8-23) Not Available [facility] (Centralized Electronic Ordering - All Locations) Patient Can Go To The Location Of Their Choice, 10/21/2022 15:50:49 10/22/1910/21/2022 COMPR EHENS LAZARO METAB OLIC PANL creatinine 1.2 mg/dL (0.5-1 .0) high Not Available [facility] (Centralized Electronic Ordering - All Locations) Patient Can Go To The Location Of Their Choice, 10/21/2022 15:50:49 10/22/1910/21/2022 COMPR EHENS LAZARO METAB OLIC PANL sodium 142 mmol/ L (133-1 45) Not Available [facility] (Centralized Electronic Ordering - All Locations) Patient Can Go To The Location Of Their Choice, 10/21/2022 15:50:49 10/22/1910/21/2022 COMPR EHENS LAZARO METAB OLIC PANL potassium 4.6 mmol/ L (3.6-5 .2) Not Available [facility] (Centralized Electronic Ordering - All Locations) Patient Can Go To The Location Of Their Choice, 10/21/2022 15:50:49 10/22/1910/21/2022 COMPR EHENS LAZARO METAB OLIC PANL chloride 102 mmol/ L (98-10 7) Not Available [facility] (Centralized Electronic Ordering - All Locations) Patient Can Go To The Location Of Their Choice, 10/21/2022 15:50:49 10/22/1910/21/2022 COMPR EHENS LAZARO METAB OLIC PANL bicarbonate 31 mmol/ L (22-29 ) high Not Available [facility] (Centralized Electronic Ordering - All Locations) Patient Can Go To The Location Of Their Choice, 10/21/2022 15:50:49 10/22/1910/21/2022 COMPR EHENS LAZARO METAB OLIC PANL anion gap 9 (4-17) Not Available [facility] (Centralized Electronic Ordering - All Locations) Patient Can Go To The Location Of Their Choice, 10/21/2022 15:50:49 10/22/1910/21/2022 COMPR EHENS LAZARO METAB OLIC PANL albumin 4.5 gm/dL (3.4-4 .8) Not Available [facility] (Centralized Electronic Ordering - All Locations) Patient Can Go To The Location Of Their Choice, 10/21/2022 15:50:49 10/22/1910/21/2022 COMPR EHENS LAZARO METAB OLIC PANL calcium 9.9 mg/dL (8.6-1 0.5) Not Available [facility] (Centralized Electronic Ordering - All Locations) Patient Can Go To The Location Of Their Choice, 10/21/2022 15:50:49 10/22/1910/21/2022 COMPR EHENS LAZARO METAB OLIC PANL bilirubin,to dhaval 0.3 mg/dL (0-1.2 ) Not Available [facility] (Centralized Electronic Ordering - All Locations) Patient Can Go To The Location Of Their Choice, 10/21/2022 15:50:49 10/22/1910/21/2022 COMPR EHENS LAZARO METAB OLIC PANL total protein 6.7 gm/dL (6.2-8 .2) Not Available [facility] (Centralized Electronic Ordering - All Locations) Patient Can Go To The Location Of Their Choice, 10/21/2022 15:50:49 10/22/1910/21/2022 COMPR EHENS LAZARO METAB OLIC PANL Ag ratio 2.0 Not Available [facility] (Centralized Electronic Ordering - All Locations) Patient Can Go To The Location Of Their Choice, 10/21/2022 15:50:49 10/22/1910/21/2022 COMPR EHENS LAZARO METAB OLIC PANL AST 44 U/L (0-32) high Not Available [facility] (Centralized Electronic Ordering - All Locations) Patient Can Go To The Location Of Their Choice, 10/21/2022 15:50:49 10/22/1910/21/2022 COMPR EHENS LAZARO METAB OLIC PANL alk phos 92 U/L (35-10 4) Not Available [facility] (Centralized Electronic Ordering - All Locations) Patient Can Go To The Location Of Their Choice, 10/21/2022 15:50:49 10/22/1910/21/2022 COMPR EHENS LAZARO METAB OLIC PANL ALT 33 U/L (0-33) Not Available [facility] (Centralized Electronic Ordering - All Locations) Patient Can Go To The Location Of Their Choice, 10/21/2022 15:50:49 10/22/1910/21/2022 COMPR EHENS LAZARO METAB OLIC PANL estimated GFR creatinine 48 mL/mi n/1.7 3_M2 Creat inine based estim ated glome rular filtr ation (eGFR ) in adult s is calcu lated using the Natio nal Kidne y Found ation recom hayley d 2020 CKD-E PI equat ion. Estim ates GFR from serum creat inine , age and sex. Not Available [facility] (Centralized Electronic Ordering - All Locations) Patient Can Go To The Location Of Their Choice, 10/21/2022 15:50:49 10/22/1910/21/2022 FREE T4 free T4 1.06 NG/dL (0.70- 1.80) Not Available [facility] (Centralized Electronic Ordering - All Locations) Patient Can Go To The Location Of Their Choice, 10/21/2022 15:54:30 10/22/1910/21/2022 LIPID PANEL cholesterol, total 225 mg/dL (<200) high Not Available [facility] (Centralized [facility] Ordering - All Locations) Patient Can Go To The Location Of Their Choice, 10/21/2022 15:54:31 10/22/1910/21/2022 LIPID PANEL triglyceride 191 mg/dL (<150) high Not Available [facility] (Centralized [facility] Ordering - All Locations) Patient Can Go To The Location Of Their Choice, 10/21/2022 15:54:31 10/22/1910/21/2022 LIPID PANEL HDL chol 55 mg/dL (>39) Not Available [facility] (Centralized Electronic Ordering - All Locations) Patient Can Go To The Location Of Their Choice, 10/21/2022 15:54:31 10/22/1910/21/2022 LIPID PANEL LDL cholesterol, calculated 132 mg/dL (0-130 ) high Not Available [facility] (Centralized Electronic Ordering - All Locations) Patient Can Go To The Location Of Their Choice, 10/21/2022 15:54:31 10/22/1910/21/2022 LIPID PANEL non HDL cholesterol (calc) 170 mg/dL (<160) high Not Available [facility] (Centralized Electronic Ordering - All Locations) Patient Can Go To The Location Of Their Choice, 10/21/2022 15:54:31 10/22/1910/21/2022 TSH TSH 3.49 uIU/m L (0.4-4 .2) Not Available [facility] (Centralized Electronic Ordering - All Locations) Patient Can Go To The Location Of Their Choice, 10/21/2022 15:54:33 01/24/2001/23/2023 COMPL ETE BLOOD COUNT WBC 6.0 K/mm3 (4.0-1 1.0) Not Available [facility] (Centralized Electronic Ordering - All Locations) Patient Can Go To The Location Of Their Choice, 01/23/2023 14:41:34 01/24/2001/23/2023 COMPL ETE BLOOD COUNT RBC 3.78 M/mm3 (4.20- 5.40) low Not Available [facility] (Centralized Electronic Ordering - All Locations) Patient Can Go To The Location Of Their Choice, 01/23/2023 14:41:34 01/24/2001/23/2023 COMPL ETE BLOOD COUNT HGB 12.2 gm/dL (11.7- 15.5) Not Available [facility] (Centralized Electronic Ordering - All Locations) Patient Can Go To The Location Of Their Choice, 01/23/2023 14:41:34 01/24/2001/23/2023 COMPL ETE BLOOD COUNT HCT 37.9 % (35.7- 45.8) Not Available [facility] (Centralized Electronic Ordering - All Locations) Patient Can Go To The Location Of Their Choice, 01/23/2023 14:41:34 01/24/2001/23/2023 COMPL ETE BLOOD COUNT MCV 100.3 fL (80.0- 100.0) high Not Available [facility] (Centralized Electronic Ordering - All Locations) Patient Can Go To The Location Of Their Choice, 01/23/2023 14:41:34 01/24/2001/23/2023 COMPL ETE BLOOD COUNT MCH 32.3 pg (27.0- 34.0) Not Available [facility] (Centralized Electronic Ordering - All Locations) Patient Can Go To The Location Of Their Choice, 01/23/2023 14:41:34 01/24/2001/23/2023 COMPL ETE BLOOD COUNT MCHC 32.2 g/dL (33.0- 37.0) low Not Available [facility] (Centralized Electronic Ordering - All Locations) Patient Can Go To The Location Of Their Choice, 01/23/2023 14:41:34 01/24/2001/23/2023 COMPL ETE BLOOD COUNT plt 200 K/mm3 (150-4 60) Not Available [facility] (Centralized Electronic Ordering - All Locations) Patient Can Go To The Location Of Their Choice, 01/23/2023 14:41:34 01/24/2001/23/2023 COMPL ETE BLOOD COUNT RDW-SD 51.8 fL (<47.0 ) high Not Available [facility] (Centralized Electronic Ordering - All Locations) Patient Can Go To The Location Of Their Choice, 01/23/2023 14:41:34 01/24/2001/23/2023 COMPL ETE BLOOD COUNT MPV 10.4 fL (9.4-1 2.4) Not Available [facility] (Centralized Electronic Ordering - All Locations) Patient Can Go To The Location Of Their Choice, 01/23/2023 14:41:34 01/24/2001/23/2023 COMPL ETE BLOOD COUNT automated NRBC 0.0 #/100 _WBC' s Not Available [facility] (Centralized Electronic Ordering - All Locations) Patient Can Go To The Location Of Their Choice, 01/23/2023 14:41:34 01/24/2001/23/2023 COMPL ETE BLOOD COUNT abs. NRBC 0.0 K/mm3 Not Available [facility] (Centralized Electronic Ordering - All Locations) Patient Can Go To The Location Of Their Choice, 01/23/2023 14:41:34 01/24/2001/23/2023 HEMOG LOBIN A1C hemoglobin A1C 5.6 % (4.0-5 .6) MONIT ORING : In known diabe tic patie nts, hemog lobin A1c targe ts shoul d be discu ssed with healt h care provi francisco. DIAGN OSTIC USE: The Ameri can [place] fran[place] Assoc iatio n (ADA) and the World [facility] iz[facility] (WHO) recom mend the use of HbA1c to diagn ose diabe franck using a thres hold of 6.5%. Patie nts who have an HbA1c betwe en 5.7% and 6.4% are consi dered at incre ased risk for devel oping diabe franck in the futur e. CAUTI ON: False ly low HbA1c resul ts may be obser candi in patie nts with hemol ytic anemi a, homoz ygous forms of abnor mal hemog lobin (e.g. SS, CC, SC), pregn pennie, recen t blood loss or hemog lobin F great er than 7%. Fruct osami ne may be used as an alter jersey test in these cases . REFER ENCE: ADA: Stand ards of Medic al Care in [place] 2019, The Journ al of Clini jyoti and Appli ed Resea [facility] and Educa tion Volum e 43, Suppl ement 1 Not Available [facility] (Centralized Electronic Ordering - All Locations) Patient Can Go To The Location Of Their Choice, 01/23/2023 14:55:35 01/24/2001/23/2023 URINA RY MICRO ALBUM IN micro-albumi n <12.0 mg/L (<20) The urine micro album in test is desig aleta to monit or renal funct ion. When scree nadia for Bence Bell prote inuri a, urine elect ropho resis is recom hayley flores. Not Available [facility] (Centralized Electronic Ordering - All Locations) Patient Can Go To The Location Of Their Choice, 01/23/2023 16:05:37 01/24/20 23 01/23/2023 URINA RY MICRO ALBUM IN malb/creat ratio UNABLE TO CALCUL ATE mg/gm (0-20) Not Available [facility] (Centralized Electronic Ordering - All Locations) Patient Can Go To The Location Of Their Choice, 01/23/2023 16:05:37 01/24/20 23 01/23/2023 URINA RY MICRO ALBUM IN urine creat for micro albumin 97.3 mg/dL Not Available [facility] (Centralized Electronic Ordering - All Locations) Patient Can Go To The Location Of Their Choice, 01/23/2023 16:05:37 01/24/20 23 01/23/2023 COMPR EHENS LAZARO METAB OLIC PANL glucose 111 mg/dL (70-99 ) high Not Available [facility] (Centralized Electronic Ordering - All Locations) Patient Can Go To The Location Of Their Choice, 01/23/2023 17:31:52 01/24/20 23 01/23/2023 COMPR EHENS LAZARO METAB OLIC PANL BUN 18 mg/dL (8-23) Not Available [facility] (Centralized Electronic Ordering - All Locations) Patient Can Go To The Location Of Their Choice, 01/23/2023 17:31:52 01/24/20 23 01/23/2023 COMPR EHENS LAZARO METAB OLIC PANL creatinine 1.1 mg/dL (0.5-1 .0) high Not Available [facility] (Centralized Electronic Ordering - All Locations) Patient Can Go To The Location Of Their Choice, 01/23/2023 17:31:52 01/24/20 23 01/23/2023 COMPR EHENS LAZARO METAB OLIC PANL sodium 139 mmol/ L (133-1 45) Not Available [facility] (Centralized Electronic Ordering - All Locations) Patient Can Go To The Location Of Their Choice, 01/23/2023 17:31:52 01/24/2001/23/2023 COMPR EHENS LAZARO METAB OLIC PANL potassium 4.6 mmol/ L (3.6-5 .2) Not Available [facility] (Centralized Electronic Ordering - All Locations) Patient Can Go To The Location Of Their Choice, 01/23/2023 17:31:52 01/24/2001/23/2023 COMPR EHENS LAZARO METAB OLIC PANL chloride 101 mmol/ L (98-10 7) Not Available [facility] (Centralized Electronic Ordering - All Locations) Patient Can Go To The Location Of Their Choice, 01/23/2023 17:31:52 01/24/2001/23/2023 COMPR EHENS LAZARO METAB OLIC PANL bicarbonate 28 mmol/ L (22-29 ) Not Available [facility] (Centralized Electronic Ordering - All Locations) Patient Can Go To The Location Of Their Choice, 01/23/2023 17:31:52 01/24/2001/23/2023 COMPR EHENS LAZARO METAB OLIC PANL anion gap 10 (4-17) Not Available [facility] (Centralized Electronic Ordering - All Locations) Patient Can Go To The Location Of Their Choice, 01/23/2023 17:31:52 01/24/2001/23/2023 COMPR EHENS LAZARO METAB OLIC PANL albumin 4.3 gm/dL (3.4-4 .8) Not Available [facility] (Centralized Electronic Ordering - All Locations) Patient Can Go To The Location Of Their Choice, 01/23/2023 17:31:52 01/24/2001/23/2023 COMPR EHENS LAZARO METAB OLIC PANL calcium 9.6 mg/dL (8.6-1 0.5) Not Available [facility] (Centralized Electronic Ordering - All Locations) Patient Can Go To The Location Of Their Choice, 01/23/2023 17:31:52 01/24/2001/23/2023 COMPR EHENS LAZARO METAB OLIC PANL bilirubin,to dhaval 0.4 mg/dL (0-1.2 ) Not Available [facility] (Centralized Electronic Ordering - All Locations) Patient Can Go To The Location Of Their Choice, 01/23/2023 17:31:52 01/24/2001/23/2023 COMPR EHENS LAZARO METAB OLIC PANL total protein 6.7 gm/dL (6.2-8 .2) Not Available [facility] (Centralized Electronic Ordering - All Locations) Patient Can Go To The Location Of Their Choice, 01/23/2023 17:31:52 01/24/2001/23/2023 COMPR EHENS LAZARO METAB OLIC PANL Ag ratio 1.8 Not Available [facility] (Centralized Electronic Ordering - All Locations) Patient Can Go To The Location Of Their Choice, 01/23/2023 17:31:52 01/24/2001/23/2023 COMPR EHENS LAZARO METAB OLIC PANL AST 31 U/L (0-32) Not Available [facility] (Centralized Electronic Ordering - All Locations) Patient Can Go To The Location Of Their Choice, 01/23/2023 17:31:52 01/24/2001/23/2023 COMPR EHENS LAZARO METAB OLIC PANL alk phos 104 U/L (35-10 4) Not Available [facility] (Centralized Electronic Ordering - All Locations) Patient Can Go To The Location Of Their Choice, 01/23/2023 17:31:52 01/24/2001/23/2023 COMPR EHENS LAZARO METAB OLIC PANL ALT 28 U/L (0-33) Not Available [facility] (Centralized Electronic Ordering - All Locations) Patient Can Go To The Location Of Their Choice, 01/23/2023 17:31:52 01/24/2001/23/2023 COMPR EHENS LAZARO METAB OLIC PANL estimated GFR creatinine 54 mL/mi n/1.7 3_M2 Creat inine based estim ated glome rular filtr ation (eGFR ) in adult s is calcu lated using the Natio nal Kidne y Found ation recom hayley d 2020 CKD-E PI equat ion. Estim ates GFR from serum creat inine , age and sex. Not Available [facility] (Centralized Electronic Ordering - All Locations) Patient Can Go To The Location Of Their Choice, 01/23/2023 17:31:52 01/24/2001/23/2023 LIPID PANEL cholesterol, total 248 mg/dL (<200) high Not Available [facility] ([facility]ized Electronic Ordering - All Locations) Patient Can Go To The Location Of Their Choice, 01/23/2023 17:31:54 01/24/20 23 01/23/2023 LIPID PANEL triglyceride 255 mg/dL (<150) high Not Available [facility] (Central[facility] Ordering - All Locations) Patient Can Go To The Location Of Their Choice, 01/23/2023 17:31:54 01/24/20 23 01/23/2023 LIPID PANEL HDL chol 44 mg/dL (>39) Not Available [facility] (Centralized Electronic Ordering - All Locations) Patient Can Go To The Location Of Their Choice, 01/23/2023 17:31:54 01/24/2001/23/2023 LIPID PANEL LDL cholesterol, calculated 153 mg/dL (0-130 ) high Not Available [facility] (Centralized Electronic Ordering - All Locations) Patient Can Go To The Location Of Their Choice, 01/23/2023 17:31:54 01/24/2001/23/2023 LIPID PANEL non HDL cholesterol (calc) 204 mg/dL (<160) high Not Available [facility] (Centralized Electronic Ordering - All Locations) Patient Can Go To The Location Of Their Choice, 01/23/2023 17:31:54 01/24/2001/23/2023 FREE T4 free T4 1.05 NG/dL (0.70- 1.80) Not Available [facility] (Centralized Electronic Ordering - All Locations) Patient Can Go To The Location Of Their Choice, 01/23/2023 17:44:32 01/24/2001/23/2023 TSH TSH 4.99 uIU/m L (0.4-4 .2) high Not Available [facility] (Centralized Electronic Ordering - All Locations) Patient Can Go To The Location Of Their Choice, 01/23/2023 17:44:33 04/25/20 23 04/25/2023 COMPR EHENS LAZARO METAB OLIC PANL glucose 92 mg/dL (70-99 ) Not Available [facility] (Centralized Electronic Ordering - All Locations) Patient Can Go To The Location Of Their Choice, 04/25/2023 14:52:59 04/25/2004/25/2023 COMPR EHENS LAZARO METAB OLIC PANL BUN 20 mg/dL (8-23) Not Available [facility] (Centralized Electronic Ordering - All Locations) Patient Can Go To The Location Of Their Choice, 04/25/2023 14:52:59 04/25/2004/25/2023 COMPR EHENS LAZARO METAB OLIC PANL creatinine 1.1 mg/dL (0.5-1 .0) high Not Available [facility] (Centralized Electronic Ordering - All Locations) Patient Can Go To The Location Of Their Choice, 04/25/2023 14:52:59 04/25/2004/25/2023 COMPR EHENS LAZARO METAB OLIC PANL sodium 140 mmol/ L (133-1 45) Not Available [facility] (Centralized Electronic Ordering - All Locations) Patient Can Go To The Location Of Their Choice, 04/25/2023 14:52:59 04/25/2004/25/2023 COMPR EHENS LAZARO METAB OLIC PANL potassium 4.4 mmol/ L (3.6-5 .2) Not Available [facility] (Centralized Electronic Ordering - All Locations) Patient Can Go To The Location Of Their Choice, 04/25/2023 14:52:59 04/25/2004/25/2023 COMPR EHENS LAZARO METAB OLIC PANL chloride 101 mmol/ L (98-10 7) Not Available [facility] (Centralized Electronic Ordering - All Locations) Patient Can Go To The Location Of Their Choice, 04/25/2023 14:52:59 04/25/2004/25/2023 COMPR EHENS LAZARO METAB OLIC PANL bicarbonate 30 mmol/ L (22-29 ) high Not Available [facility] (Centralized Electronic Ordering - All Locations) Patient Can Go To The Location Of Their Choice, 04/25/2023 14:52:59 04/25/2004/25/2023 COMPR EHENS LAZARO METAB OLIC PANL anion gap 9 (4-17) Not Available [facility] (Centralized Electronic Ordering - All Locations) Patient Can Go To The Location Of Their Choice, 04/25/2023 14:52:59 04/25/2004/25/2023 COMPR EHENS LAZARO METAB OLIC PANL albumin 4.2 gm/dL (3.4-4 .8) Not Available [facility] (Centralized Electronic Ordering - All Locations) Patient Can Go To The Location Of Their Choice, 04/25/2023 14:52:59 04/25/2004/25/2023 COMPR EHENS LAZARO METAB OLIC PANL calcium 9.5 mg/dL (8.6-1 0.5) Not Available [facility] (Centralized Electronic Ordering - All Locations) Patient Can Go To The Location Of Their Choice, 04/25/2023 14:52:59 04/25/2004/25/2023 COMPR EHENS LAZARO METAB OLIC PANL bilirubin,to dhaval 0.3 mg/dL (0-1.2 ) Not Available [facility] (Centralized Electronic Ordering - All Locations) Patient Can Go To The Location Of Their Choice, 04/25/2023 14:52:59 04/25/2004/25/2023 COMPR EHENS LAZARO METAB OLIC PANL total protein 6.5 gm/dL (6.2-8 .2) Not Available [facility] (Centralized Electronic Ordering - All Locations) Patient Can Go To The Location Of Their Choice, 04/25/2023 14:52:59 04/25/2004/25/2023 COMPR EHENS LAZARO METAB OLIC PANL Ag ratio 1.8 Not Available [facility] (Centralized Electronic Ordering - All Locations) Patient Can Go To The Location Of Their Choice, 04/25/2023 14:52:59 04/25/2004/25/2023 COMPR EHENS LAZARO METAB OLIC PANL AST 29 U/L (0-32) Not Available [facility] (Centralized Electronic Ordering - All Locations) Patient Can Go To The Location Of Their Choice, 04/25/2023 14:52:59 04/25/2004/25/2023 COMPR EHENS LAZARO METAB OLIC PANL alk phos 101 U/L (35-10 4) Not Available [facility] (Centralized Electronic Ordering - All Locations) Patient Can Go To The Location Of Their Choice, [id number] 04/25/2023 14:52:59 04/25/2004/25/2023 COMPR EHENS LAZARO METAB OLIC PANL ALT 32 U/L (0-33) Not Available [facility] (Centralized Electronic Ordering - All Locations) Patient Can Go To The Location Of Their Choice, 04/25/2023 14:52:59 04/25/2004/25/2023 COMPR EHENS LAZARO METAB OLIC PANL estimated GFR creatinine 53 mL/mi n/1.7 3_M2 Creat inine based estim ated glome rular filtr ation (eGFR ) in adult s is calcu lated using the Natio nal Kidne y Found ation recom hayley d 2020 CKD-E PI equat ion. Estim ates GFR from serum creat inine , age and sex. Not Available [facility] (Centralized Electronic Ordering - All Locations) Patient Can Go To The Location Of Their Choice, 04/25/2023 14:52:59 04/25/2004/25/2023 LIPID PANEL cholesterol, total 229 mg/dL (<200) high Not Available [facility] ([facility] Ordering - All Locations) Patient Can Go To The Location Of Their Choice, 04/25/2023 14:53:01 04/25/2004/25/2023 LIPID PANEL triglyceride 203 mg/dL (<150) high Not Available [facility] ([facility] Ordering - All Locations) Patient Can Go To The Location Of Their Choice, 04/25/2023 14:53:01 04/25/2004/25/2023 LIPID PANEL HDL chol 46 mg/dL (>39) Not Available [facility] (Centralized Electronic Ordering - All Locations) Patient Can Go To The Location Of Their Choice, 04/25/2023 14:53:01 04/25/2004/25/2023 LIPID PANEL LDL cholesterol, calculated 142 mg/dL (0-130 ) high Not Available [facility] (Centralized Electronic Ordering - All Locations) Patient Can Go To The Location Of Their Choice, [id number] 04/25/2023 14:53:01 04/25/20 23 04/25/2023 LIPID PANEL non HDL cholesterol (calc) 183 mg/dL (<160) high Not Available [facility] ([facility] Ordering - All Locations) Patient Can Go To The Location Of Their Choice, [id number] 04/25/2023 14:53:01 04/25/20 23 04/25/2023 FREE T4 free T4 1.08 NG/dL (0.70- 1.80) Not Available [facility] (Centralized Electronic Ordering - All Locations) Patient Can Go To The Location Of Their Choice, [id number] 04/25/2023 14:58:06 04/25/20 23 04/25/2023 TSH TSH 5.08 uIU/m L (0.4-4 .2) high Not Available [facility] (Centralized Electronic Ordering - All Locations) Patient Can Go To The Location Of Their Choice, [id number] 04/25/2023 14:58:08 04/25/2004/25/2023 HEMOG LOBIN A1C hemoglobin A1C 5.6 % (4.0-5 .6) MONIT ORING : In known diabe tic patie nts, hemog lobin A1c targe ts shoul d be discu ssed with healt h care provi francisco. DIAGN OSTIC USE: The Ameri can Diabe franck Assoc iatio n (ADA) and the World Healt h Organ izati on (WHO) recom mend the use of HbA1c to diagn ose diabe franck using a thres hold of 6.5%. Patie nts who have an HbA1c betwe en 5.7% and 6.4% are consi dered at incre ased risk for devel oping diabe franck in the futmarion BEVERLY ON: False ly low HbA1c resul ts may be obser candi in patie nts with hemol ytic anemi a, homoz ygous forms of abnor mal hemog lobin (e.g. SS, CC, SC), pregn pennie, recen t blood loss or hemog lobin F great er than 7%. Fruct osami ne may be used as an alter jersey test in these cases . REFER ENCE: ADA: [employer] ards of Medic al Care in Diabe franck 2019, The Journ al of Clini jyoti and Appli ed Resea rch and Educa tion Volum e 43, Suppl ement 1 Not Available [facility] (Centralized Electronic Ordering - All Locations) Patient Can Go To The Location Of Their Choice, 04/25/2023 15:04:28 04/25/2004/25/2023 URINA RY MICRO ALBUM IN micro-albumi n <12.0 mg/L (<20) The urine micro album in test is desig aleta to monit or renal funct ion. When scree nadia for Bence Bell prote inuri a, urine elect ropho resis is recom hayley flores. Not Available [facility] (Centralized Electronic Ordering - All Locations) Patient Can Go To The Location Of Their Choice, 04/25/2023 15:06:52 04/25/20 23 04/25/2023 URINA RY MICRO ALBUM IN malb/creat ratio UNABLE TO CALCUL ATE mg/gm (0-20) Not Available [facility] (Centralized Electronic Ordering - All Locations) Patient Can Go To The Location Of Their Choice, 04/25/2023 15:06:52 04/25/2004/25/2023 URINA RY MICRO ALBUM IN urine creat for micro albumin 99.8 mg/dL Not Available [facility] ([facility] Ordering - All Locations) Patient Can Go To The Location Of Their Choice, 04/25/2023 15:06:52 07/22/19 24 07/22/2023 COMPR EHENS LAZARO METAB OLIC PANL glucose 85 mg/dL (70-99 ) Not Available [facility] (Centralized Electronic Ordering - All Locations) Patient Can Go To The Location Of Their Choice, 07/22/2023 14:23:18 07/22/19 24 07/22/2023 COMPR EHENS LAZARO METAB OLIC PANL BUN 21 mg/dL (8-23) Not Available [facility] (Centralized Electronic Ordering - All Locations) Patient Can Go To The Location Of Their Choice, 07/22/2023 14:23:18 07/22/19 24 07/22/2023 COMPR EHENS LAZARO METAB OLIC PANL creatinine 1.1 mg/dL (0.5-1 .0) high Not Available [facility] (Centralized Electronic Ordering - All Locations) Patient Can Go To The Location Of Their Choice, 07/22/2023 14:23:18 07/22/19 24 07/22/2023 COMPR EHENS LAZARO METAB OLIC PANL sodium 142 mmol/ L (133-1 45) Not Available [facility] (Centralized Electronic Ordering - All Locations) Patient Can Go To The Location Of Their Choice, 07/22/2023 14:23:18 07/22/19 24 07/22/2023 COMPR EHENS LAZARO METAB OLIC PANL potassium 4.7 mmol/ L (3.6-5 .2) Not Available [facility] (Centralized Electronic Ordering - All Locations) Patient Can Go To The Location Of Their Choice, 07/22/2023 14:23:18 07/22/1907/22/2023 COMPR EHENS LAZARO METAB OLIC PANL chloride 103 mmol/ L (98-10 7) Not Available [facility] (Centralized Electronic Ordering - All Locations) Patient Can Go To The Location Of Their Choice, 07/22/2023 14:23:18 07/22/1907/22/2023 COMPR EHENS LAZARO METAB OLIC PANL bicarbonate 26 mmol/ L (22-29 ) Not Available [facility] (Centralized Electronic Ordering - All Locations) Patient Can Go To The Location Of Their Choice, 07/22/2023 14:23:18 07/22/1907/22/2023 COMPR EHENS LAZARO METAB OLIC PANL anion gap 13 (4-17) Not Available [facility] (Centralized Electronic Ordering - All Locations) Patient Can Go To The Location Of Their Choice, 07/22/2023 14:23:18 07/22/1907/22/2023 COMPR EHENS LAZARO METAB OLIC PANL albumin 4.2 gm/dL (3.4-4 .8) Not Available [facility] (Centralized Electronic Ordering - All Locations) Patient Can Go To The Location Of Their Choice, 07/22/2023 14:23:18 07/22/1907/22/2023 COMPR EHENS LAZARO METAB OLIC PANL calcium 9.5 mg/dL (8.6-1 0.5) Not Available [facility] (Centralized Electronic Ordering - All Locations) Patient Can Go To The Location Of Their Choice, 07/22/2023 14:23:18 07/22/1907/22/2023 COMPR EHENS LAZARO METAB OLIC PANL bilirubin,to dhaval 0.2 mg/dL (0-1.2 ) Not Available [facility] (Centralized Electronic Ordering - All Locations) Patient Can Go To The Location Of Their Choice, 07/22/2023 14:23:18 07/22/19 24 07/22/2023 COMPR EHENS LAZARO METAB OLIC PANL total protein 6.3 gm/dL (6.2-8 .2) Not Available [facility] (Centralized Electronic Ordering - All Locations) Patient Can Go To The Location Of Their Choice, 07/22/2023 14:23:18 07/22/19 24 07/22/2023 COMPR EHENS LAZARO METAB OLIC PANL Ag ratio 2.0 Not Available [facility] (Centralized Electronic Ordering - All Locations) Patient Can Go To The Location Of Their Choice, 07/22/2023 14:23:18 07/22/19 24 07/22/2023 COMPR EHENS LAZARO METAB OLIC PANL AST 25 U/L (0-32) Not Available [facility] (Centralized Electronic Ordering - All Locations) Patient Can Go To The Location Of Their Choice, 07/22/2023 14:23:18 07/22/19 24 07/22/2023 COMPR EHENS LAZARO METAB OLIC PANL alk phos 81 U/L (35-10 4) Not Available [facility] (Centralized Electronic Ordering - All Locations) Patient Can Go To The Location Of Their Choice, 07/22/2023 14:23:18 07/22/19 24 07/22/2023 COMPR EHENS LAZARO METAB OLIC PANL ALT 24 U/L (0-33) Not Available [facility] (Centralized Electronic Ordering - All Locations) Patient Can Go To The Location Of Their Choice, 07/22/2023 14:23:18 07/22/1907/22/2023 COMPR EHENS LAZARO METAB OLIC PANL estimated GFR creatinine 53 mL/mi n/1.7 3_M2 Creat inine based estim ated glome rular filtr ation (eGFR ) in adult s is calcu lated using the Natio nal Kidne y Found ation recom hayley d 2020 CKD-E PI equat ion. Estim ates GFR from serum creat inine , age and sex. Not Available [facility] (Centralized Electronic Ordering - All Locations) Patient Can Go To The Location Of Their Choice, 07/22/2023 14:23:18 07/22/1907/22/2023 LIPID PANEL cholesterol, total 236 mg/dL (<200) high Not Available [facility] ([facility] Ordering - All Locations) Patient Can Go To The Location Of Their Choice, 07/22/2023 14:23:24 07/22/1907/22/2023 LIPID PANEL triglyceride 151 mg/dL (<150) high Not Available [facility] ([facility] Ordering - All Locations) Patient Can Go To The Location Of Their Choice, 07/22/2023 14:23:24 07/22/1907/22/2023 LIPID PANEL HDL chol 54 mg/dL (>39) Not Available [facility] (Centralized Electronic Ordering - All Locations) Patient Can Go To The Location Of Their Choice, 07/22/2023 14:23:24 07/22/1907/22/2023 LIPID PANEL LDL cholesterol, calculated 152 mg/dL (0-130 ) high Not Available [facility] (Centralized Electronic Ordering - All Locations) Patient Can Go To The Location Of Their Choice, 07/22/2023 14:23:24 07/22/1907/22/2023 LIPID PANEL non HDL cholesterol (calc) 182 mg/dL (<160) high Not Available [facility] ([facility]ized [facility] Ordering - All Locations) Patient Can Go To The Location Of Their Choice, 07/22/2023 14:23:24 07/22/1907/22/2023 FREE T4 free T4 1.20 NG/dL (0.70- 1.80) Not Available [facility] (Centralized Electronic Ordering - All Locations) Patient Can Go To The Location Of Their Choice, 07/22/2023 14:27:47 07/22/1907/22/2023 TSH TSH 1.92 uIU/m L (0.4-4 .2) Not Available [facility] (Centralized Electronic Ordering - All Locations) Patient Can Go To The Location Of Their Choice, 07/22/2023 14:27:50 07/22/1907/22/2023 HEMOG LOBIN A1C hemoglobin A1C 5.8 % (4.0-5 .6) high MONIT ORING : In known diabe tic patie nts, hemog lobin A1c targe ts shoul d be discu ssed with healt h care provi francisco. DIAGN OSTIC USE: The Ameri can Diabe franck Assoc iatio n (ADA) and the World Healt h Organ izati on (WHO) recom mend the use of HbA1c to diagn ose diabe franck using a thres hold of 6.5%. Patie nts who have an HbA1c betwe en 5.7% and 6.4% are consi dered at incre ased risk for devel oping diabe franck in the futmarion eMakayla QUIROZTI ON: False ly low HbA1c resul ts may be obser candi in patie nts with hemol ytic anemi a, homoz ygous forms of abnor mal hemog lobin (e.g. SS, CC, SC), pregn pennie, recen t blood loss or hemog lobin F great er than 7%. Fruct osami ne may be used as an alter jersey test in these cases . REFER ENCE: ADA: [employer] ards of Medic al Care in Diabe franck 2019, The Journ al of Clini jyoti and Appli ed Resea [facility] and Educa tion Volum e 43, Suppl ement 1 Not Available [facility] (Centralized Electronic Ordering - All Locations) Patient Can Go To The Location Of Their Choice, [id number] 07/22/2023 15:07:37 10/21/19 24 10/22/2023 COMP. METAB OLIC PANEL (14) glucose 100 mg/dL 70-99 above high normal Not Available [facility] ([facility]) [address] [facility], [place], [address], 10/22/2023 06:25:22 10/21/19 24 10/22/2023 COMP. METAB OLIC PANEL (14) BUN 22 mg/dL 8-27 normal Not Available [facility] ([facility]) [address] [facility], [place], [address], 10/22/2023 06:25:22 10/21/19 24 10/22/2023 COMP. METAB OLIC PANEL (14) creatinine 1.09 mg/dL 0.57-1 .00 above high normal Not Available [facility] ([facility]) [address] [facility] [place], [address], 10/22/2023 06:25:22 10/21/19 24 10/22/2023 COMP. METAB OLIC PANEL (14) eGFR 52 mL/mi n/1.7 3 >59 below low normal Not Available [facility] ([facility]) [address] [facility], [place], [address], 10/22/2023 06:25:22 10/21/19 24 10/22/2023 COMP. METAB OLIC PANEL (14) BUN/creatini ne ratio 20 12-28 normal Not Available [facility] ([facility]) [address] [facility] [place], [address], 10/22/2023 06:25:22 10/21/19 24 10/22/2023 COMP. METAB OLIC PANEL (14) sodium 140 mmol/ L 134-14 4 normal Not Available [facility] ([facility]) [address] [facility] [place], [address], 10/22/2023 06:25:22 10/21/19 24 10/22/2023 COMP. METAB OLIC PANEL (14) potassium 4.6 mmol/ L 3.5-5. 2 normal Not Available [facility] ([facility]) [address] [place], [address], 10/22/2023 06:25:22 10/21/19 24 10/22/2023 COMP. METAB OLIC PANEL (14) chloride 102 mmol/ L 96-106 normal Not Available [facility] ([facility]) [address] [place], [address], 10/22/2023 06:25:22 10/21/19 24 10/22/2023 COMP. METAB OLIC PANEL (14) anion gap 13.0 mmol/ L 10.0-1 8.0 Not Available [facility] ([facility]) [address] [facility] [place], [address], 10/22/2023 06:25:22 10/21/19 24 10/22/2023 COMP. METAB OLIC PANEL (14) carbon dioxide, total 25 mmol/ L 20-29 normal Not Available [facility] ([facility]) [address] [facility] [place], [address], 10/22/2023 06:25:22 10/21/19 24 10/22/2023 COMP. METAB OLIC PANEL (14) calcium 9.4 mg/dL 8.7-10 .3 normal Not Available [facility] ([facility]) [address] [facility] [place], [address], 10/22/2023 06:25:22 10/21/19 24 10/22/2023 COMP. METAB OLIC PANEL (14) protein, total 6.3 g/dL 6.0-8. 5 normal Not Available [facility] ([facility]) [address] [facility] [place], [address], 10/22/2023 06:25:22 10/21/19 24 10/22/2023 COMP. METAB OLIC PANEL (14) albumin 4.0 g/dL 3.8-4. 8 normal Not Available [facility] ([facility]) [address] [facility] [place], [address], 10/22/2023 06:25:22 10/21/19 24 10/22/2023 COMP. METAB OLIC PANEL (14) globulin, total 2.3 g/dL 1.5-4. 5 Not Available [facility] ([facility]) [address] [facility] [place], [address], 10/22/2023 06:25:22 10/21/19 24 10/22/2023 COMP. METAB OLIC PANEL (14) A/G ratio 1.7 1.2-2. 2 Not Available [facility] ([facility]) [address] [facility] [place], [address], 10/22/2023 06:25:22 10/21/19 24 10/22/2023 COMP. METAB OLIC PANEL (14) bilirubin, total 0.2 mg/dL 0.0-1. 2 normal Not Available [facility] ([facility]) [address] [facility] [place], [address], 10/22/2023 06:25:22 10/21/19 24 10/22/2023 COMP. METAB OLIC PANEL (14) alkaline phosphatase 96 IU/L 44-121 normal Not Available [facility] ([facility]) [address] [facility] [place], [address], 10/22/2023 06:25:22 10/21/19 24 10/22/2023 COMP. METAB OLIC PANEL (14) AST (SGOT) 24 IU/L 0-40 normal Not Available [facility] ([facility]) [address] [facility] [place], [address], 10/22/2023 06:25:22 10/21/19 24 10/22/2023 COMP. METAB OLIC PANEL (14) ALT (SGPT) 24 IU/L 0-32 normal Not Available [facility] ([facility]) [address] [facility] [place], [address], 10/22/2023 06:25:22 10/21/19 24 10/22/2023 LP+NO N-HDL FARIDA STERO L cholesterol, total 226 mg/dL 100-19 9 above high normal Not Available [facility] ([facility]) [address] [facility] [place], [address], 10/22/2023 06:25:27 10/21/19 24 10/22/2023 LP+NO N-HDL FARIDA STERO L triglyceride s 261 mg/dL 0-149 above high normal Not Available [facility] ([facility]) [address] [facility], [place], [address], 10/22/2023 06:25:27 10/21/19 24 10/22/2023 LP+NO N-HDL FARIDA STERO L HDL cholesterol 43 mg/dL >39 normal Not Available [facility] ([facility]) [address] [place], [address], 10/22/2023 06:25:27 10/21/19 24 10/22/2023 LP+NO N-HDL FARIDA STERO L VLDL cholesterol jyoti 47 mg/dL 5-40 above high normal Not Available [facility] ([facility]) [address] [place], [address], 10/22/2023 06:25:27 10/21/19 24 10/22/2023 LP+NO N-HDL FARIDA STERO L LDL chol calc ([facility]) 136 mg/dL 0-99 above high normal Not Available [facility] ([facility]) [address] [facility], [place], [address], 10/22/2023 06:25:27 10/21/19 24 10/22/2023 LP+NO N-HDL FARIDA STERO L non-HDL cholesterol 183 mg/dL 0-129 above high normal Not Available [facility] ([facility]) [address] [place], [address], 10/22/2023 06:25:27 10/21/19 24 10/22/2023 LP+NO N-HDL FARIDA STERO L comment: FUR POINTER Not Available [facility] ([facility]) [address] [place], [address], 10/22/2023 06:25:27 10/21/19 24 10/21/2023 HEMOG LOBIN A1C hemoglobin A1C 5.7 % 4.8-5. 6 above high normal Predi abete s: 5.7 - 6.4 Diabe franck: >6.4 Glyce asif contr ol for adult s with diabe franck: <7.0 Not Available [facility] ([facility]) [address] [facility], [place], [address], 10/22/2023 06:25:29 10/21/19 24 10/22/2023 THYRO XINE (T4) FREE, DIREC T T4,free(dire ct) 1.18 NG/dL 0.82-1 .77 normal Not Available [facility] ([facility]) [address] [facility], [place], [address], 10/22/2023 06:25:31 10/21/19 24 10/22/2023 TSH TSH 1.590 uIU/m L 0.450- 4.500 normal Not Available [facility] ([facility]) [address] [facility], [place], [address], 10/22/2023 06:25:32 10/21/19 24 10/22/2023 ALBUM IN/CR EATIN INE RATIO ,URIN E creatinine, urine 64.5 mg/dL not estab. normal Not Available [facility] ([facility]) [address] [facility], [place], [address], 10/22/2023 14:06:50 10/21/19 24 10/22/2023 ALBUM IN/CR EATIN INE RATIO ,URIN E albumin, urine 6.7 ug/mL not estab. Not Available [facility] ([facility]) [address] [place], [address], 10/22/2023 14:06:50 10/21/19 24 10/22/2023 ALBUM IN/CR EATIN INE RATIO ,URIN E alb/creat ratio 10 mg/g_ creat 0-29 Gabriella l: 0 - 29 Moder ately incre ased: 30 - 300 Sever dewayne incre ased: >300 Not Available [facility] ([facility]) [address] [place], [address], 10/22/2023 14:06:50 01/23/20 24 01/24/2024 COMP. METAB OLIC PANEL (14) glucose 99 mg/dL 70-99 normal Not Available [facility] ([facility]) [address] [place], [address], 01/24/2024 06:08:00 01/23/20 24 01/24/2024 COMP. METAB OLIC PANEL (14) BUN 22 mg/dL 8-27 normal Not Available [facility] ([facility]) [address] [place], [address], 01/24/2024 06:08:00 01/23/20 24 01/24/2024 COMP. METAB OLIC PANEL (14) creatinine 1.06 mg/dL 0.57-1 .00 above high normal Not Available [facility] ([facility]) [address] [place], [address], 01/24/2024 06:08:00 01/23/20 24 01/24/2024 COMP. METAB OLIC PANEL (14) eGFR 54 mL/mi n/1.7 3 >59 below low normal Not Available [facility] ([facility]) [address] [place], [address], 01/24/2024 06:08:00 01/23/20 24 01/24/2024 COMP. METAB OLIC PANEL (14) BUN/creatini ne ratio 21 12-28 normal Not Available [facility] ([facility]) [address] [place], [address], 01/24/2024 06:08:00 01/23/20 24 01/24/2024 COMP. METAB OLIC PANEL (14) sodium 140 mmol/ L 134-14 4 normal Not Available [facility] ([facility]) [address] [place], [address], 01/24/2024 06:08:00 01/23/20 24 01/24/2024 COMP. METAB OLIC PANEL (14) potassium 4.8 mmol/ L 3.5-5. 2 normal Not Available [facility] ([facility]) [address] [place], [address], 01/24/2024 06:08:00 01/23/20 24 01/24/2024 COMP. METAB OLIC PANEL (14) chloride 102 mmol/ L 96-106 normal Not Available [facility] ([facility]) [address] [place], [address], 01/24/2024 06:08:00 01/23/20 24 01/24/2024 COMP. METAB OLIC PANEL (14) anion gap 12.0 mmol/ L 10.0-1 8.0 Not Available [facility] ([facility]) [address] [place], [address], 01/24/2024 06:08:00 01/23/20 24 01/24/2024 COMP. METAB OLIC PANEL (14) carbon dioxide, total 26 mmol/ L 20-29 normal Not Available [facility] ([facility]) [address] [place], [address], 01/24/2024 06:08:00 01/23/20 24 01/24/2024 COMP. METAB OLIC PANEL (14) calcium 9.9 mg/dL 8.7-10 .3 normal Not Available [facility] ([facility]) [address] [place], [address], 01/24/2024 06:08:00 01/23/20 24 01/24/2024 COMP. METAB OLIC PANEL (14) protein, total 6.7 g/dL 6.0-8. 5 normal Not Available [facility] [address] [facility] [place] [place] [address], 01/24/2024 06:08:00 01/23/20 24 01/24/2024 COMP. METAB OLIC PANEL (14) albumin 4.2 g/dL 3.8-4. 8 normal Not Available [facility] ([facility]) [address] [facility] [place], [address], 01/24/2024 06:08:00 01/23/20 24 01/24/2024 COMP. METAB OLIC PANEL (14) globulin, total 2.5 g/dL 1.5-4. 5 Not Available [facility] ([facility]) [address] [place], [address], 01/24/2024 06:08:00 01/23/20 24 01/24/2024 COMP. METAB OLIC PANEL (14) bilirubin, total 0.3 mg/dL 0.0-1. 2 normal Not Available [facility] ([facility]) [address] [facility] [place], [address], 01/24/2024 06:08:00 01/23/20 24 01/24/2024 COMP. METAB OLIC PANEL (14) alkaline phosphatase 97 IU/L 44-121 normal Not Available [facility] ([facility]) [address] [facility] [place], [address], 01/24/2024 06:08:00 01/23/20 24 01/24/2024 COMP. METAB OLIC PANEL (14) AST (SGOT) 34 IU/L 0-40 normal Not Available [facility] ([facility]) [address] [facility] [place], [address], 01/24/2024 06:08:00 01/23/20 24 01/24/2024 COMP. METAB OLIC PANEL (14) ALT (SGPT) 23 IU/L 0-32 normal Not Available [facility] ([facility]) [address] [facility] [place], [address], 01/24/2024 06:08:00 01/23/20 24 01/24/2024 LP+NO N-HDL FARIDA STERO L cholesterol, total 235 mg/dL 100-19 9 above high normal Not Available [facility] ([facility]) [address] [facility], [place], [address], 01/24/2024 06:08:01 01/23/20 24 01/24/2024 LP+NO N-HDL FARIDA STERO L triglyceride s 234 mg/dL 0-149 above high normal Not Available [facility] ([facility]) [address] [place], [address], 01/24/2024 06:08:01 01/23/20 24 01/24/2024 LP+NO N-HDL FARIDA STERO L HDL cholesterol 46 mg/dL >39 normal Not Available [facility] ([facility]) [address] [place], [address], 01/24/2024 06:08:01 01/23/20 24 01/24/2024 LP+NO N-HDL FARIDA STERO L VLDL cholesterol jyoti 43 mg/dL 5-40 above high normal Not Available [facility] ([facility]) [address] [place], [address], 01/24/2024 06:08:01 01/23/20 24 01/24/2024 LP+NO N-HDL FARIDA STERO L LDL chol calc ([facility]) 146 mg/dL 0-99 above high normal Not Available [facility] ([facility]) [address] [place], [address], 01/24/2024 06:08:01 01/23/20 24 01/24/2024 LP+NO N-HDL FARIDA STERO L LDL calc comment: FUR POINTER Not Available [facility] ([facility]) [address] [place], [address], 01/24/2024 06:08:01 01/23/20 24 01/24/2024 LP+NO N-HDL FARIDA STERO L non-HDL cholesterol 189 mg/dL 0-129 above high normal Not Available [facility] ([facility]) [address] [place], [address], 01/24/2024 06:08:01 01/23/20 24 01/23/2024 HEMOG LOBIN A1C hemoglobin A1C 5.8 % 4.8-5. 6 above high normal Predi abete s: 5.7 - 6.4 Diabe franck: >6.4 Glyce asif contr ol for adult s with diabe franck: <7.0 Not Available [facility] ([facility]) [address] [place], [address], 01/24/2024 06:08:01 01/23/20 24 01/24/2024 THYRO XINE (T4) FREE, DIREC T T4,free(dire ct) 1.40 NG/dL 0.82-1 .77 normal Not Available [facility] ([facility]) [address] [place], [address], 01/24/2024 06:08:01 01/23/20 24 01/24/2024 TSH TSH 1.810 uIU/m L 0.450- 4.500 normal Not Available [facility] ([facility]) [address] [place], [address], 01/24/2024 06:08:02 05/31/19 25 06/01/2024 COMP. METAB OLIC PANEL (14) glucose 92 mg/dL 70-99 normal Not Available [facility] ([facility]) [address] [place], [address], 06/01/2024 20:06:02 05/31/19 25 06/01/2024 COMP. METAB OLIC PANEL (14) BUN 18 mg/dL 8-27 normal Not Available [facility] ([facility]) [address] [place], [address], 06/01/2024 20:06:02 05/31/19 25 06/01/2024 COMP. METAB OLIC PANEL (14) creatinine 1.16 mg/dL 0.57-1 .00 above high normal Not Available [facility] ([facility]) [address] [facility] [place], [address], 06/01/2024 20:06:02 05/31/19 25 06/01/2024 COMP. METAB OLIC PANEL (14) eGFR 48 mL/mi n/1.7 3 >59 below low normal Not Available [facility] ([facility]) [address] [facility] [place], [address], 06/01/2024 20:06:02 05/31/19 25 06/01/2024 COMP. METAB OLIC PANEL (14) BUN/creatini ne ratio 16 12-28 normal Not Available [facility] ([facility]) [address] [facility] [place], [address], 06/01/2024 20:06:02 05/31/19 25 06/01/2024 COMP. METAB OLIC PANEL (14) sodium 141 mmol/ L 134-14 4 normal Not Available [facility] ([facility]) [address] [facility] [place], [address], 06/01/2024 20:06:02 05/31/19 25 06/01/2024 COMP. METAB OLIC PANEL (14) potassium 4.3 mmol/ L 3.5-5. 2 normal Not Available [facility] ([facility]) [address] [facility] [place], [address], 06/01/2024 20:06:02 05/31/19 25 06/01/2024 COMP. METAB OLIC PANEL (14) chloride 101 mmol/ L 96-106 normal Not Available [facility] ([facility]) [address] [facility] [place], [address], 06/01/2024 20:06:02 05/31/19 25 06/01/2024 COMP. METAB OLIC PANEL (14) carbon dioxide, total 25 mmol/ L 20-29 normal Not Available [facility] ([facility]) [address] [facility] [place], [address], 06/01/2024 20:06:02 05/31/19 25 06/01/2024 COMP. METAB OLIC PANEL (14) calcium 9.7 mg/dL 8.7-10 .3 normal Not Available [facility] ([facility]) [address] [place], [address], 06/01/2024 20:06:02 05/31/19 25 06/01/2024 COMP. METAB OLIC PANEL (14) protein, total 6.6 g/dL 6.0-8. 5 normal Not Available [facility] ([facility]) [address] [place], [address], 06/01/2024 20:06:02 05/31/19 25 06/01/2024 COMP. METAB OLIC PANEL (14) albumin 4.1 g/dL 3.8-4. 8 normal Not Available [facility] ([facility]) [address], [place], [address], 06/01/2024 20:06:02 05/31/19 25 06/01/2024 COMP. METAB OLIC PANEL (14) globulin, total 2.5 g/dL 1.5-4. 5 Not Available [facility] ([facility]) [address] [facility] [place] [place], [address], 06/01/2024 20:06:02 05/31/19 25 06/01/2024 COMP. METAB OLIC PANEL (14) bilirubin, total 0.3 mg/dL 0.0-1. 2 normal Not Available [facility] ([facility]) [address] [place], [address], 06/01/2024 20:06:02 05/31/19 25 06/01/2024 COMP. METAB OLIC PANEL (14) alkaline phosphatase 105 IU/L 44-121 normal Not Available [facility] ([facility]) [address] [facility] [place], [address], 06/01/2024 20:06:02 05/31/19 25 06/01/2024 COMP. METAB OLIC PANEL (14) AST (SGOT) 36 IU/L 0-40 normal Not Available [facility] ([facility]) [address] [facility] [place], [address], 06/01/2024 20:06:02 05/31/19 25 06/01/2024 COMP. METAB OLIC PANEL (14) ALT (SGPT) 33 IU/L 0-32 above high normal Not Available [facility] ([facility]) [address] [facility] [place], [address], 06/01/2024 20:06:02 05/31/19 25 06/01/2024 LIPID PANEL cholesterol, total 225 mg/dL 100-19 9 above high normal Not Available [facility] ([facility]) [address] [place], [address], 06/01/2024 20:06:03 05/31/19 25 06/01/2024 LIPID PANEL triglyceride s 202 mg/dL 0-149 above high normal Not Available [facility] ([facility]) [address] [place], [address], 06/01/2024 20:06:03 05/31/19 25 06/01/2024 LIPID PANEL HDL cholesterol 47 mg/dL >39 normal Not Available [facility] ([facility]) [address] [place], [address], 06/01/2024 20:06:03 05/31/19 25 06/01/2024 LIPID PANEL VLDL cholesterol jyoti 36 mg/dL 5-40 Not Available [facility] ([facility]) [address] [place], [address], 06/01/2024 20:06:03 05/31/19 25 06/01/2024 LIPID PANEL LDL chol calc ([facility]) 142 mg/dL 0-99 above high normal Not Available [facility] ([facility]) [address] [place], [address], 06/01/2024 20:06:03 05/31/19 25 06/01/2024 LIPID PANEL LDL calc comment: FUR POINTER Not Available [facility] ([facility]) [address] [facility], [place], [address], 06/01/2024 20:06:03 05/31/19 25 06/01/2024 ALBUM IN/CR EAT RATIO , RANDO M UR creatinine, urine 94.9 mg/dL not estab. normal Not Available [facility] ([facility]) [address] [place], [address], 06/01/2024 20:06:03 05/31/19 25 06/01/2024 ALBUM IN/CR EAT RATIO , RANDO M UR albumin, urine 12.3 ug/mL not estab. Not Available [facility] ([facility]) [address] [facility], [place], [address], 06/01/2024 20:06:03 05/31/19 25 06/01/2024 ALBUM IN/CR EAT RATIO , RANDO M UR alb/creat ratio 13 mg/g_ creat 0-29 Gabriella l: 0 - 29 Moder ately incre ased: 30 - 300 Sever dewayne incre ased: >300 Not Available [facility] ([facility]) [address] [place], [address], 06/01/2024 20:06:03 05/31/19 25 05/31/2024 HEMOG LOBIN A1C hemoglobin A1C 5.8 % 4.8-5. 6 above high normal Predi abete s: 5.7 - 6.4 Diabe franck: >6.4 Glyce asif contr ol for adult s with diabe franck: <7.0 Not Available [facility] ([facility]) [address] [place], [address], 06/01/2024 20:06:04 05/31/19 25 06/01/2024 TSH TSH 1.680 uIU/m L 0.450- 4.500 normal Not Available [facility] ([facility]) [address] [facility], [place], [address], 06/01/2024 20:06:05 05/31/19 25 06/01/2024 T4, FREE T4,free(dire ct) 1.17 NG/dL 0.82-1 .77 normal Not Available [facility] ([facility]) [address] [facility], [place], [address], 06/01/2024 20:06:06 02/22/20 22 02/21/2022 US, liver No observ ation record ed. [address], [address], 05/22/2022 20:52:46 02/07/20 23 02/05/2023 US, liver No observ ation record ed. [address], [address], 03/20/2023 11:04:52 02/27/20 24 02/27/2024 bone densi ty No observ ation record ed. [facility] [address] [place], [address], 04/06/2024 13:51:08 03/10/20 24 03/10/2024 US, liver No observ ation record ed. [address], [address], 04/06/2024 13:51:06 Result Notes None recorded. Problems Name Problem SNOMED Code Status Onset Date Resolution Date Notes Provider Name and Address Organization Details Recorded Time Eczema 46614886 Active David Green MD [address] [place] [address], [id number] , [place] [facility] 5 11:19:01 Benign hypertens ion 50009919 Active David Green MD [address] [place] [address], [phone] , [facility] 4 19:24:37 Restless legs 37188823 Active David Green MD [address] [place] [address], , [facility] 6 11:30:09 Eczema of external auditory canal 66827171 Active David Green MD [address] [place] [address], , [facility] 6 11:30:09 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 60082623252 07 Active 2023 David Green MD [address] [place] [address], , [facility] 4 19:24:38 Clinical finding Completed 200704/07/2013 Not Available [facility] 3 02:04:02 Sciatica 68660171 Active Not Available [facility] 3 03:12:24 Mixed hyperlipi demia 954094405 Active 2003 David Green MD [address] [place] [address], , [facility] 4 19:24:38 Major depressio n, melanchol ic type 996666719 Active Not Available [facility] 3 03:12:24 Diabetes mellitus 85315939 Active 2008 David Green MD [address] [place] [address], , [facility] 2 11:01:19 Gastroeso phageal reflux disease 333744548 Active David Green MD [address] [place] [address], , [facility] 5 11:19:01 Morbid obesity 486927722 Active David Green MD [address] [place] [address], , [facility] 4 19:24:38 Hypothyro idism 57065834 Active 2003 David Green MD [address] [place] [address], , [facility] 4 19:24:38 Primary fibromyal lakhwinder syndrome 17618585 Active David Green MD [address] [place] [address], [phone] , [facility] 4 19:24:38 Adverse reaction 407445861 Active Not Available [facility] 3 03:12:24 Pure hyperchol esterolem ia 091839940 Active 2007 [facility] 12:17:31 Problem Notes None recorded. Procedures Surgical History Date Name Laterality Status Provider Name and Address Organization Details Recorded Time 04/06/20 Cardiovascular disease risk reduction counseling completed Cher Grimm LPN [facility] 04/05/2024 09:11:24 10/01/19 24 Cardiovascular disease risk reduction counseling completed Cher Grimm LPN [facility] 09/29/2023 13:39:59 03/19/20 23 Cardiovascular disease risk reduction counseling completed Cher Grimm LPN [facility] 03/18/2023 08:50:11 08/01/19 23 Cardiovascular disease risk reduction counseling completed David Green MD [address] [place] [address], [id number], [facility] 08/02/2022 15:31:36 Imaging Results Imaging Date Name Status LastModified by Organiz ation Details LastModified Time 02/21/2022 US, liver completed [address], [address], 05/22/2022 20:52:46 02/05/2023 US, liver completed [facility] [address] [place] [address], [address], 03/20/2023 11:04:52 02/27/2024 [facility] [address] [place], [address], 04/06/2024 13:51:08 03/10/2024 [facility] [address] [place], [address], 04/06/2024 13:51:06 Procedure Notes None recorded. Medical Equipment None Reported. Allergies Allergen ID Allergen Name Allergen Category Reaction Reaction Severity Criticality Documentation Date Start Date Code Code System Note Provider Name and Address Organization Details Recorded Time 067664 topiramat e medicatio n other severe Not available 04/23/2013 79627 RxNorm menta lly out of it IRINEO Miner [facility] 5 10:44:04 12026 Hymenopte ra allergeni c extract medicatio n other severe Not available 02/17/2009 68662 4 RxNorm Not Available [facility] 1 06:05:41 24375 Hymenopte ra allergeni c extract medicatio n other severe Not available 02/17/2009 42656 4 RxNorm Not Available [facility] 1 06:05:20 [address]0500 Hymenopte ra allergeni c extract medicatio n other severe Not available 02/17/2009 43017 4 RxNorm Not Available [facility] 1 06:05:20 755804 Cipro medicatio n Not available Not available Not available 04/19/2015 36876 3 RxNorm inter feres with fibro myalg ia IRINEO Miner [facility] 5 10:42:31 010942 pravastat in medicatio n Not available Not available Not available 07/19/2020 11521 RxNorm IRINEO Prado [facility] 1 09:06:25 952176 Repatha medicatio n Not available Not available Not available 08/08/2021 52535 96 RxNorm IBS IRINEO Evans [facility] 2 12:09:21 Medications Name Sig Start Date Stop Date Status Note LastModified by Organization Details LastModified Time Prescript ion - Prior Authoriza tion Request 01/13 completed 04/16/12 quantity override -pravast atin Not Available Not Available Not Available freestyle freedom lite test strips Use to test glucose twice daily 05/11 completed Not Available Not Available Not Available Levoxyl 150 mcg tablet Take 1 tablet by mouth daily with one extra pill per week. (8 pills per week). 2023 active levothyr oxine - Not Available Not Available Not Available Protonix 40 mg tablet,de layed release TAKE 1 TABLET BY MOUTH DAILY 2017 active PRN Not Available Not Available Not Avai lable Toprol XL 25 mg tablet,ex tended release Take 1 tablet every day by oral route. active Not Available Not Available No t Available nabumeton e 750 mg tablet Take 1 tablet every day by oral route as needed. 04/22 completed uses for back pain PRN Not Available Not Available Not Available tizanidin e 2 mg tablet Take 2 tablets every 8 hours by oral route as needed for 30 days. 2015 active PRN for muscle pain Not Available Not Available Not Available trazodone 50 mg tablet Take 0.5 tablets every day by oral route. 03/19 completed as needed Not Available Not Available Not Available meloxicam 15 mg tablet Take 1 tablet every day by oral route. 04/06 completed prn Not Available Not Available Not Available Niaspan 500 mg tablet,ex tended release Take 2 tablets every day by oral route for 90 days. 2012 active Not Available Not Available Not Avai lable atenolol 25 mg tablet TAKE ONE TABLET BY MOUTH ONCE DAILY IN THE MORNING 2017 active taking 50 mg daily 04/06/24 Not Available Not Available Not Available venlafaxi ne ER 150 mg capsule,e xtended release 24 hr Take 1 capsule every day by oral route. active Not Available Not Available No t Available Flonase 50 mcg/actua tion nasal spray,davide pension 2007 active As needed/ very rare Not Available Not Available Not Available Epi E-Z Pen 0.3 mg/0.3 mL injection , auto-inje ctor INJECT 0.3 MG BY INTRAMUS CULAR ROUTE ONCE NEEDED FOR ANAPHYLA XIS 2011 active Not Available Not Available Not Avai lable melatonin 3 mg tablet Take 2 tablets every day by oral route. 01/30 completed Not Available Not Available Not Available triamcino lone acetonide 0.1 % topical cream APPLY A THIN LAYER TO THE AFFECTED AREA(S) BY TOPICAL ROUTE 2 TIMES PER DAY 2015 active PRN Not Available Not Available Not Avai lable Celebrex 100 mg capsule Take 1 capsule twice a day by oral route as needed for 15 days. 2014 active Not Available Not Available Not Avai lable Lidoderm 5 % topical patch APPLY 1 PATCH BY TRANSDER MAL ROUTE ONCE DAILY (MAY WEAR UP TO 12HOURS. ) active Uses PRN - 12 hours on and 12 hours off. Not Available Not Available Not Available Celexa 20 mg tablet Take 1 tablet every day by oral route for 90 days. 2011 active Pt is taking 40mgs daily Not Available Not Available Not Available colesevel am 625 mg tablet Take 1 tablet every day by oral route. 2024 active taking 1 tab daily 04/06/24 -PT requesti ng a year supply Not Available Not Available Not Available Pravachol 20 mg tablet TAKE 1 AND 1/2 TABLETS (30MG) EVERY DAY 05/06 completed Not Available Not Available Not Available gabapenti n 300 mg capsule Take 1 capsule 3 times a day by oral route for 90 days. 2011 active 1 in am and 2 in pm Not Available Not Available Not Available estradiol 0.01% (0.1 mg/gram) vaginal cream Insert by vaginal route. active going to change to a gel Not Available Not Available Not Available Ativan 0.5 mg tablet Take 0.5 tablets as needed by oral route at bedtime for 30 days. 2015 active Not Available Not Available Not Avai lable metformin ER 500 mg tablet,ex tended release 24 hr Take 2 tablets twice a day by oral route. 2024 active [place] 08/01/19 23 [place] 03/19/20 23 LABS 10/22/19 23 Not Available Not Available Not Available Celexa 40 mg tablet Take 1 tablet every day by oral route for 30 days. 2012 active Not Available Not Available Not Avai lable diazepam 5 mg tablet Take 0.5 tablets every day by oral route. active uses prn leg spasm Not Available Not Available Not Available Actos 30 mg tablet TAKE 1 TABLET BY MOUTH EVERY DAY 2023 active LV 08/01/19 23 NV 03/19/20 23 LABS 01/24/20 23 Not Available Not Available Not Available Adult Low Dose Aspirin 81 mg tablet 2007 active Take 325mg qd Not Available Not Available Not Available Lexapro 20 mg tablet 2007 active Take Not Available Not Available Not Avai lable Zetia 10 mg tablet Take 1 tablet every day by oral route for 90 days. 2023 active Not Available Not Available Not Avai lable metformin ER 750 mg tablet,ex tended release 24 hr TAKE 1 TABLET BY MOUTH 2 TIMES DAILY 01/30 completed 1075mg am & 750mg pm Not Available Not Available Not Available metoprolo l tartrate 25 mg tablet 2007 active Take 0.50 tabs as directed Not Available Not Available Not Available metformin ER 1,000 mg tablet,ex tended release 24hr (osmotic) Take 1 tablet twice a day by oral route. 01/30 completed Not Available Not Available Not Available magnesium active daily Not Available Not Nikole ilable Not Available melatonin 10 mg daily active Not Available Not Available No t Available Vitamin C active Not Available Not Nikole ilable Not Available aspirin active 81 mg daily Not Available Not Available Not Available vitamin E active Not Available Not Nikole ilable Not Available garlic active Not Available Not Availa ble Not Available Fish Oil active daily Not Available Not Avai lable Not Available iron 27mg daily active Not Available Not Available No t Available Tylenol PM Extra Strength active Not Available Not Available Not Available Vitamin D active Not Available Not Nikole ilable Not Available Glucosami ne active once daily Not Available Not Available Not Available Protonix 40mg 1 tablet qd active Not Available Not Available No t Available multivita min active Not Available Not Available Not Available Calcium 500 Take one tablet p.o. daily (OTC) active 600 mg daily Not Available Not Available Not Available Vitamin B12 OTC - take one tablet daily 01/13 completed Not Available Not Available Not Available FreeStyle Lite Strips USE TO TEST BLOOD GLUCOSE 2 TIMES DAILY 2020 active Pharmacy needed a specific testing number Not Available Not Available Not Available FreeStyle Lite Meter active Not Available Not Available Not Available CoQ-10 active daily Not Available Not Availa ble Not Available metformin ER 1,000 mg 24 hr tablet,ex tended release (gastric reten.) 01/30 completed Not Available Not Available Not Available Vagifem 10 mcg vaginal tablet Insert 1 tablet twice a week by vaginal route. 09/30 completed Not Available Not Available Not Available Probiotic take one tablet daily 01/13 completed Not Available Not Available Not Available niacin ER 1,000 mg tablet,ex tended release Take 1 tablet every day by oral route at bedtime. active taking just regular Not Available Not Available Not Available ICaps AREDS 2 capsule daily - generic (OTC) active Not Available Not Available No t Available icosapent ethyl 1 gram capsule 09/30 completed Not Available Not Available Not Available nitrofura ntoin 100 mg tablet Take 1 tablet twice a day by oral route as directed for 7 days. 10/24 completed on for the UTI currentl y. Not Available Not Available Not Available Trulicity 1.5 mg/0.5 mL subcutane ous pen injector Inject 0.5 mL every week by subcutan eous route. 02/21 completed Not Available Not Available Not Available Trulicity 0.75 mg/0.5 mL subcutane ous pen injector Inject 0.5 mL every week by subcutan eous route. 02/15 completed Hasn't started yet Not Available Not Available Not Available Repatha Pushtrone x 420 mg/3.5 mL subcutane ous wearable injector 08/08 completed Not Available Not Available Not Available Vitals Date Recorded Body height Body mass index (BMI) Body weight Heart rate Systolic blood pressure Diastolic blood pressure Provider Name and Address Organization Details Last Updated DateTime 2 182.88 cm 39.9 kg/m2 429806. 88 g 66 /min 127 mm[Hg] 57 mm[Hg] Cher Grimm [facility] 2 10:22:57 Date Recorded Body height Body mass index (BMI) Body weight Heart rate Systolic blood pressure Diastolic blood pressure Provider Name and Address Organization Details Last Updated DateTime 3 168.91 cm 46.6 kg/m2 649973. 64 g 67 /min 145 mm[Hg] 67 mm[Hg] Cher Grimm [facility] 3 10:28:34 Date Recorded Body height Body mass index (BMI) Body weight Heart rate Systolic blood pressure Diastolic blood pressure Provider Name and Address Organization Details Last Updated DateTime 3 168.91 cm 46.1 kg/m2 072272. 15 g 69 /min 140 mm[Hg] 72 mm[Hg] Ria Reyes RN [facility] 3 13:22:51 Date Recorded Body height Body mass index (BMI) Body weight Heart rate Systolic blood pressure Diastolic blood pressure Provider Name and Address Organization Details Last Updated DateTime 4 168.91 cm 45.2 kg/m2 283243. 95 g 66 /min 131 mm[Hg] 74 mm[Hg] Cher Grimm LPN [facility] 4 14:31:26 Date Recorded Body height Body mass index (BMI) Body weight Heart rate Systolic blood pressure Diastolic blood pressure Provider Name and Address Organization Details Last Updated DateTime 4 168.91 cm 45.5 kg/m2 748202. 42 g 62 /min 136 mm[Hg] 75 mm[Hg] Cher Grimm LPN [facility] 4 13:47:25 Social History Question Answer Notes LastModified by Organizat ion Details LastModified Time Tobacco Smoking Status Never Smoker Not Available [facility] 04/04/2011 04:53:18 What Is Your Level Of Alcohol Consumption? None Information not available 07/31/2022 Do You Wear A Helmet When Biking? Yes Information not available 10/25/2015 Which Illicit Or Recreational Drugs Have You Used? None [email or web address] Information not available 05/01/2016 Are There Any Guns Present In Your Home? No Information not available 10/25/2015 Live Alone Or With Others? Alone Information not available 10/25/2015 Mosquito Repellent Used Routinely Yes Information not available 10/25/2015 What Was The Date Of Your Most Recent Tobacco Screening? 11/04/2018 Information not available 12/09/2018 Seat Belts Used Routinely Yes Information not available 10/25/2015 Smoke Alarm In Home Yes Information not available 10/25/2015 Do You Use Any Illicit Or Recreational Drugs? No [email or web address] Information not available 02/05/2021 Do You Use Sunscreen Routinely? Yes Information not available 10/25/2015 Do You Or Have You Ever Used Any Other Forms Of Tobacco Or Nicotine? No Information not available 08/08/2021 Sex: Unknown Functional Status None recorded. Mental Status None recorded. Family History Relationship Description Onset Age of this Age Resolved Age Notes LastModified by Organization Details LastModified Time Brother Benign hypertension [email or web address] Not available 10/25/2015 10:46:53 Mother Malignant tumor of breast 84 from PE [email or web address] n Not available 10/25/2015 10:46:53 Notes:mom- from PE at a ge 84. dad- large cell lymphoma (histiocytic), age 70. 2 brothers- cholesterol, HTN and obese. (bad experiences after mom ). (09/26- no changes) 04/28- no changes. 10/28- brothers- not much contact. 04/29- Son had gastric band (400#)- graduated with [employer] (IT for [employer]). Genoveva is fine and healthy (39 unmarried- not dating much). 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 10/29- son working at [employer] (Daughter in law graduated [employer] (undergrad)). daughter still at [employer]. No grandchildren. 04/30- son is - only hears from him at holidays. Daughter is wonderful. 10/30- Genoveva is daughter- not but wants to have kids. Health is OK. Son is OK (no contact x 2 years- moving to [facility]). Invited son for [employer] but he was too busy. 05/01- Genoveva doing OK (o/w). Still no contact with son. 09/30- Genoveva is o/w. 05/02- daughter Genoveva OK. 05/04- Patricia (daughter) ok. Son- more communicative. Brother (76)- had stent 2 years ago. Younger brother- not much contact. 11/03- Hasn't heard from brothers. 05/05- Genoveva is healthy. Natasha is 13 and Andreia is 7 (not genetically linked). older brother DX with T2DM 11/04- Older brother- no meds. 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 1 cm.but concern if over 7 mm. left streak - left temporal (left). some rojas matter abnormalities noted. Also their half sister has microcephaly (not the ones with her at video visit 2019) 08/06: Andreia got COVID (10)- doing well in school. Natasha more trouble (16)- better condenser cleaner. 02/06: Natasha got shot. Andreia too. In private school. 08/08: Natasha to [employer]. Andreia is 12 (in play). Medical History No medical history recorded. Gynecological HistoryNo gynecological history recorded. Obstetrics History GPAL:G 0 P 0 0 0 0 Immunizations Vaccine Type Date Status Note Provider Nam e and Address Organization Details Recorded Time pneumococcal, unspecified formulation 5 completed Estrella Sarah REGULATORY ATTORNEY null, [facility] 04/19/2015 10:51:52 Influenza, split virus, quadrivalent, preservative 0 completed Citlaly Banks REGULATORY ATTORNEY null, [facility] 07/19/2020 09:14:01 COVID-19, mRNA, LNP-S, PF, 30 mcg/0.3 mL dose 1 completed Cher Alfa, REGULATORY ATTORNEY null, [facility] 08/08/2021 12:18:30 COVID-19, mRNA, LNP-S, PF, 30 mcg/0.3 mL dose 1 completed Cher Livegorge, REGULATORY ATTORNEY null, [facility] 08/08/2021 12:19:19 COVID-19, mRNA, LNP-S, PF, 30 mcg/0.3 mL dose 1 completed Cher Lively, REGULATORY ATTORNEY null, [facility] 08/08/2021 12:19:41 COVID-19, mRNA, LNP-S, PF, 30 mcg/0.3 mL dose 2 completed Cher Lively, REGULATORY ATTORNEY null, [facility] 01/30/2022 10:19:25 Past Encounters Encounter ID Performer Location Encounter Start Date Encounter Closed Date Diagnosis/Indication Diagnosis SNOMED-CT Code Diagnosis ICD10 Code Diagnosis Note [id number] Endocrino logy, [facility] [place] [address] 03/21/2004 15:16:03 03/22/2004 08:48:44 [id number] Endocrino logy, [facility] [place] [address] 1 10/05/2004 11:26:52 10/05/2004 14:21:38 [id number] Endocrino logy, [facility] [place] [address] 1 07/24/2005 16:46:52 07/25/2005 08:21:49 [id number] Endocrino logy, [facility] [place] [address] 1 03/26/2006 14:14:50 03/27/2006 08:14:18 [id number] Endocrino logy, [facility] [place] [address] 1 09/03/2006 13:37:30 09/04/2006 07:35:43 [id number] Endocrino logy, [facility] [place] [address] 1 09/11/2007 13:33:01 06/08/2008 02:02:29 [id number] Nicole Bright Endocrino logy, [facility] [place] [address] [id number] Endocrino logy, [facility] [place] [address] 1 08/19/2008 10:49:39 08/22/2008 11:25:57 [id number] Kayla Aragon Endocrino logy, [facility] [place] [address] 1 02/17/2009 10:00:44 02/21/2009 09:33:12 [id number] LAB - [facility] [place] [address] 1 08/19/2008 00:00:00 03/16/2009 02:00:52 [id number] Keshia Arora Endocrino logy, [facility] [place] [address] 1 08/25/2009 10:37:49 08/31/2009 09:40:58 [id number] Endocrino logy, [address] [address] 04/04/2010 13:51:16 04/05/2010 11:00:35 [id number] Keshia Arora Endocrino logy, [address] [place] [address] 10/03/2010 09:53:06 10/12/2010 09:33:28 [id number] Keshia Arora Endocrino logy, [address] [address] 05/08/2011 09:53:35 05/08/2011 11:07:11 [id number] Akilah Wagner RN, BSN, [facility] Endocrino logy, [address] [address] 10/23/2011 10:20:50 10/23/2011 12:04:51 [id number] Jessenia Roselia Endocrino logy, [address] [address] 04/22/2012 10:36:18 04/22/2012 12:12:24 [id number] Keshia Arora Endocrino logy, [address] [address] 1 10/21/2012 10:29:22 10/21/2012 11:34:48 [id number] Endocrino logy, [address] [address] 04/23/2013 14:13:07 04/23/2013 15:50:30 Gastroesophageal reflux disease [id number] doing well on protonix. Mixed hyperlipidemia [id number] Continue on prava (30 taken as 1.5 tabs of 20 mg) has come off coQ10 since no differnce when she took it. On fish oil daily but not on zetia. LDL is quite good at current level. HDL has been pretty consistent over 50. Hyperlipid emia is ongoing problem- Her risk for CAD is significan t, given weight, pre-diabet es (metformin ) and HTN (beta ru). If CK values or sx were worsen on statins, I would re-evaluat e keeping her on them, but she is rather consistent at giving hx that her myalgias are not related to being on statins and labs have shown that her CK values don't change on or off statins. We discussed (as we have done in past) risk/benef it of being on statins. Given that her risk is significan t, seems like it outweighs potential problems on statins. Also, we discussed importance of noting any change or worsening of sx, and the need for urgent evaluation in case of change in muscle sx. Has had trouble getting to goal but with prava and niaspan, recent LDL good around 100 (92 in 05/31 but 133 in 08/29). HDL generally good over 50. CRP has not been c/w high risk. Problem affording niasapn when in deann hole- she was told there is no generic but I reviewed this and there are generic options for long-actin g niacin . Maciel buchanan, could look at taking generic niacin 2-3x per day. In past, CHOL:HDL is around 3.72. Alternativ dewayne, non-HDL is 136. Both of these are reasonable . Would reconsider zetia if LDL worsens or concern for CAD increases (had cath 2001- no problmes then) (For concerns of zetia, study showing lack of benefit was in patients with familial hyperchole sterolemia and was only short term with use of intimal thickness as surrogate end point). For her, I think keeping LDL down is better especially if it means using lower dose of statin. Hypothyroidism [id number] on 150 generic and TSH at goal (11/28)- around 0.7 in 11/28. Follow and adjust dose prn. Monitor labs every 6 months. Impaired f asting glycemia [id number] Up to 119 recently (02/28)- but generally has been 103-113. doing well on metformin. continue and monitor labs [id number] Endocrino logy, [address] [address] 10/27/2013 11:26:04 10/27/2013 12:54:26 Hypothyroidism 66927682 Doing OK. TFTs good. tsh= 0.98 in 07/02. Continue on 150. follow labs. monitor labs. adjust dose prn. Impaired f asting glycemia 355094929 Up to120 (was 119 in 02/28)- but generally has been 103-113. Doing well on metformin. Continue and monitor labs Mixed hyperlipidemia 391519723 On prava (20 HS and 10 in AM). On OTC niacin. Lipids stable. 196/139/50 /129. Hx of myalgias but not linked to statin. Primary fi bromyalgia syndrome [id number] Long hx of muscle pain with elevated CPK values even when not on statins. Previous labs have shown high CK's, low ESR, low CRP, and negative testing for other etiologies of myalgias. Sx are mostly when someone presses on muscle. Muscles don't hurt at rest and can exercise when she wants. Encourage her to walk on treadmill. Also consider watching CHO intake when at restaurant s. [id number] Quyen Kristi Endocrino logy, [address] [address] 04/20/2014 10:14:59 04/20/2014 11:21:14 Impaired fasting glycemia 430062816 Up to126 but a1c is 5.8% (has been 120 and 119 in 02/28)- and was 103-113 in past. Doing well on metformin (750 bid). Continue and monitor labs. Hypothyroidism 90675363 Doing OK. TFTs good. tsh= 1.41 (11/29) and was 0.98 in 07/02. Continue on 150 generic. Follow labs. Monitor labs. Adjust dose prn. Mixed hyperlipidemia 073075363 On prava (20 HS and 10 in AM). On Slo-niacin . Reviewed options- not clear benefit for niacin but she is not able to take higher doses or more potent statin. Given pre-diabet es, obesity, HTN and dyslipidem ia, suggest she stay on this for now. However, suggest she can go off of fish oil since other studies (notably ORIGIN) did not show benefit from fish oil in a pre-diabet es population . Lipids have been pretty stable. HDL levels holding in 50's and LDL in mid-high 120s. most recent: 201/163/53 /127 was: 196/139/50 /129. Hx of myalgias but not linked to statin. Myalgias better on gabapentin . Primary fi bromyalgia syndrome 18755707 Long hx of muscle pain with elevated CPK values even when not on statins. Previous labs have shown high CK's, low ESR, low CRP, and negative testing for other etiologies of myalgias. Sx are mostly when someone presses on muscle. Muscles even hurt at rest in past but not now on gabapentin ; she can pretty much exercise when she wants. Encourage continued physical activity- Yoga and water aerobics. Morbid obesity 380512154 BMI over 40. Better about activities but somewhat limited because of m/s sx. Clearly, several of her problems would benefit if she could lose weight. In general, has indicated that food is her only pleasure ( I don't have other vices ). Using CPAP. [id number] Endocrino logy, [facility] [address] [place] [address] 10/19/2014 10:28:15 10/19/2014 11:22:36 Impaired fasting glycemia 370177533 Holding under 124. Has been up to126 but a1c has remained under 6% (has been 120 and 119 in 02/28)- and was 103-113 in past. Doing well on metformin (750 bid). Continue and monitor labs. Mixed hyperlipidemia 577542553 On prava (20 HS and 10 in AM). On Slo-niacin (1000). Given pre-diabet es, obesity, HTN and dyslipidem ia, suggest she stay on this for now. However, suggest she go off of fish oil since other studies (notably ORIGIN) did not show benefit from fish oil in a pre-diabet es population . Lipids have been pretty stable. HDL levels holding in 50's and LDL in mid-high 120s. most recent: 1125 188/130/51 /120; before LDL= 112 (07/03) was : 201/163/53 /127 was: 196/139/50 /129. Hx of myalgias but not linked to statin. Myalgias better on gabapentin . Gastroesop hageal reflux disease [id number] doing well on protonix. Hypothyroidism 87987264 Doing OK on 150 mcg. TFTs good. TSH= 1.41 (11/29) and was 0.98 in 07/02. Follow labs. Monitor labs. Adjust dose prn. Primary fi bromyalgia syndrome 59380201 Long hx of muscle pain with elevated CPK values even when not on statins. Previous labs have shown high CK's, low ESR, low CRP, and negative testing for other etiologies of myalgias. Sx are mostly when someone presses on muscle. Muscles even hurt at rest in past but not now on gabapentin ; she can pretty much exercise when she wants. Encourage continued physical activity- Yoga and water aerobics. Morbid obesity 357891386 BMI over 40. Better about activities but somewhat limited because of m/s sx. Clearly, several of her problems would benefit if she could lose weight. In general, has indicated that food is her only pleasure ( I don't have other vices ). Using CPAP. Eczema [id number] David Green MD Endocrino logy, [facility] [address] [place] [address] 04/19/2015 10:16:41 04/19/2015 11:51:46 Hypothyroidism 55021203 E03.9 Doing OK on 150 mcg generic. TFTs good when checked last. Follow labs. Monitor labs. Adjust dose prn. Impaired f asting glycemia 584886020 R73.01 Holding under 124. Has been up to126 but a1c has remained under 6%. Doing well on metformin (750 bid). Continue and monitor labs. Mixed hyperlipidemia 267 676979 E78.2 On prava (20 HS and 10 in AM). On Slo-niacin (1000). May try changing to regular- figures she is flushing anyway Given pre-diabet es, obesity, HTN and dyslipidem ia, suggest she stay on this for now. Off fish oil - have discussed that studies (notably ORIGIN) did not show benefit from fish oil in a pre-diabet es population . Lipids have been pretty stable. LDL in 130s but has been in 120s. HDL levels holding in 50's. Most recent: 04/02- 206/168/56 /138 188/130/51 /120; before LDL= 112 (07/03) was : 201/163/53 /127 was: 196/139/50 /129. Hx of myalgias but not linked to statin. Myalgias better on gabapentin . Primary fi bromyalgia syndrome 76291849 M79.7 Long hx of muscle pain with elevated CPK values even when not on statins. Previous labs have shown high CK's, low ESR, low CRP, and negative testing for other etiologies of myalgias. Sx are mostly when someone presses on muscle. Muscles even hurt at rest in past but not now on gabapentin ; she can pretty much exercise when she wants. Encourage continued physical activity- Yoga and water aerobics. Morbid obesity 260180479 E66.01 BMI over 40. Better about activities but somewhat limited because of m/s sx. Clearly, several of her problems would benefit if she could lose weight. In general, has indicated that food is her only pleasure ( I don't have other vices ). Using CPAP. Benign hypertension 1072 5009 I10 Needs refill. Restless legs 24106762 G 25.81 uses ativan prn. [id number] Alicia Branch Endocrino logy, [address] [address] 10/25/2015 10:22:56 10/25/2015 13:58:09 Hypothyroidism 69393732 E03.9 Doing OK on 150 mcg generic. TFTs good- tsh 0.71 (11/01) Follow labs. Monitor labs. Adjust dose prn. Mixed hyperlipidemia 267 893744 E78.2 On prava (20 HS and 10 in AM). On niacin (1000)- sometimes Slow sometimes regular- both working OK. ASA helps flushing. Given pre-diabet es, obesity, HTN and dyslipidem ia, suggest she stay on this for now. Was on fish oil but OFF - have discussed that studies (notably ORIGIN) did not show benefit from fish oil in a pre-diabet es population . Lipids have been good- LDL down to 108 (2015) - was up towards 130s but has been in 120s. HDL levels holding in 50's. Most recent: 11/01- 197/180/53 /108 04/02- 206/168/56 /138 188/130/51 /120; before LDL= 112 (07/03) was : 201/163/53 /127 was: 196/139/50 /129. Hx of myalgias but not linked to statin. Myalgias better on gabapentin . Impaired f asting glycemia 280974386 R73.01 Was holding under 126. Most recent was 130 mg/dl. Was up to 126 in 2013 but a1c has remained around 6%. Doing well on metformin (750 bid). Used TID after injections and had diarrhea. Continue and monitor labs. If BG increases further, may need to consider other options. Primary fi bromyalgia syndrome 83691585 M79.7 Long hx of muscle pain with elevated CPK values even when not on statins. Previous labs have shown high CK's, low ESR, low CRP, and negative testing for other etiologies of myalgias. Sx are mostly when someone presses on muscle. Muscles even hurt at rest in past but not now on gabapentin ; she can pretty much exercise when she wants. Encourage continued physical activity- Yoga and water aerobics. Morbid obesity 915043540 E66.01 BMI over 40. Better about activities but somewhat limited because of m/s sx. Has had some mild weight loss and reinforced her activites (Yoga and water aerobics). Clearly, several of her problems would benefit if she could lose weight. Using CPAP. Restless legs 10028075 G 25.81 uses ativan prn. Eczema of external auditory canal 98144372 H60.549 has had benefit of trimacinol one- requesting refill. Will assist but encourage her to contact PCP or ENT. [id number] David Green MD Endocrino logy, [address] [address] 05/01/2016 10:43:42 05/01/2016 11:47:38 Hypothyroidism 07259992 E03.9 Doing OK on 150 mcg generic. TFTs good- TSH= 2.00 (04/03); was 0.71 (11/01). Follow labs. Monitor labs. Adjust dose prn. Mixed hyperlipidemia 267 999853 E78.2 On prava (20 HS and 10 in AM). On niacin (1000)- sometimes Slow-niaci n sometimes regular- both working OK.ASA helps flushing. Given pre-diabet es, obesity, HTN and dyslipidem ia, suggest she stay on this for now. Lipids have been better- LDL slightly up to 115; was down to 108 (2015) - had been up towards 130s but has been in 120s. HDL levels were holding in 50's but now in nevjw14g.M ost recent were 03/2016.- 197/180/53 /30438/15- 206/168/56 /726663/13 0/51/120;b efore LDL= 112 (07/03)was : 201/163/53 /127was: 196/139/50 /129.Hx of myalgias but not linked to statin. Myalgias better on gabapentin . Morbid obesity 682761234 E66.01 BMI over 40. Better about activities but somewhat limited because of m/s sx. Has had some mild weight loss and reinforced her activites (Yoga and water aerobics). Clearly, several of her problems would benefit if she could lose weight. Using CPAP. Impaired f asting glycemia 174012478 R73.01 Was holding under 126. Most recent was 130 mg/dl. Was up to 126 in 2013 but a1c has remained with a1c under 6%. Most recent was 6% in 02/01. Doing well on metformin (750 bid). Tried TID after injections but had diarrhea. Continue and monitor labs. If BG increases further, may need to consider other options. Primary fi bromyalgia syndrome 12702223 M79.7 Sx are mostly when someone presses on muscle. Muscles even hurt at rest in past but not now on gabapentin ; she can pretty much exercise when she wants. Encourage continued physical activity- Yoga and water aerobics. [id number] David Green MD Endocrino logy, [address] [address] 11/06/2016 10:48:07 11/06/2016 11:57:23 Hypothyroidism 49912697 E03.9 On 150 mcg generic.TS H has been drifting down and most recent is 0.6 (11/02). Need to monitor carefully - likely will need dose adjustment . Mixed hyperlipidemia 267 524099 E78.2 On prava (20 HS and 10 in AM). On niacin (1000)- sometimes Slow-niaci n sometimes regular- both working OK. ASA helps flushing but still occ sweats and s/e. Given pre-diabet es, obesity, HTN and dyslipidem ia, suggest she stay on this for now. Lipids have been better- LDL slightly down to almost 100- had been 110-130. HDL levels were holding in 50's but now has dropped to lower 40s. was: 196/139/50 /129. Hx of myalgias but not linked to statin. Myalgias better on gabapentin . Morbid obesity 058896759 E66.01 BMI over 40. Weight slightly better over past 2 years. Better about activities but somewhat limited because of m/s sx. Has had some mild weight loss and reinforced her activites (Yoga and water aerobics). Clearly, several of her problems would benefit if she could lose weight. Using CPAP. Impaired f asting glycemia 009318972 R73.01 Was holding under 126. Most recent was 122 mg/dl- Had been up as high as 130 mg/dl and one value of 126 in 2013 but a1c has remained under 6%. Most recent was 6.2% in 02/01. Doing well on metformin (750 bid).Tried TID after steroid injections but had diarrhea. Continue and monitor labs. If BG increases further, may need to consider other options. Primary fi bromyalgia syndrome 95667993 M79.7 Sx are mostly when someone presses on muscle. Muscles even hurt at rest in past but not now on gabapentin ; she can pretty much exercise when she wants. Encourage continued physical activity- Yoga and water aerobics. [id number] David Green MD Endocrino logy, [address] [address] 04/22/2017 10:16:56 04/22/2017 11:54:16 Hypothyroidism 27583323 E03.9 On 150 mcg generic. TSH= 1.21- had been drifting down. Need to monitor carefully - likely will need dose adjustment . Impaired f asting glycemia 540112884 R73.01 Recent increase over 140 but may have had contributi on from lozenges/m outh rinse she uses at night (frequentl y).A1c is good and under 6%. Will ask her to check next FBG when using rinse without glucose. Most recent was 122 mg/dl- Had been up as high as 130 mg/dl and one value of 126 in 2013 but a1c has remained under 6%. Most recent was 5.9% (2016)- was 6.2% in 02/01. Doing well on metformin (750 bid). Tried TID after steroid injections but had diarrhea. Continue and monitor labs. If BG increases further, may need to consider other options. Mixed hyperlipidemia 267 988504 E78.2 On prava (20 HS and 10 in AM).On niacin (1000)- sometimes Slow-niaci n sometimes regular- both working OK. ASA helps flushing but still occ sweats and s/e. 2017: 194/174 (was 318)/52/10 7 (was 93) Given pre-diabet es, obesity, HTN and dyslipidem ia, suggest she stay on this for now. Lipids have been better- LDL slightly down to almost 100- had been 110-130. HDL levels holding in 50's Hx of myalgias but not linked to statin. Myalgias better on gabapentin . Morbid obesity 563895519 E66.01 BMI over 40. Better about activities but somewhat limited because of m/s sx. Has had some mild weight loss and reinforced her activites (Yoga and water aerobics). Clearly, several of her problems would benefit if she could lose weight. Using CPAP. [id number] David Green MD Endocrino logy, [address] [address] 11/05/2017 09:58:31 11/05/2017 11:02:45 Impaired fasting glycemia 299276307 R73.01 Pre- diabetes on metformin 750 bid.BG= 130 but had eaten badly day before. Still, this would qualify as a glucose over 126 mg/dl.Give n a1c is 6.1%, can continue to monitor. May consider increase in metformin to 2000 mg/day. Mixed hyperlipidemia 267 915863 E78.2 On statin with known high CPK. Stopping in past has not influenced CK levels or symptoms.Moraima masseyangelika high risk, have discussed with patient and she agrees to continue meds. Hypothyroidism 06393038 E03.9 needs Rx levoxyl 150 Morbid obesity 295231570 E66.01 BMI over 40. Better about activities but somewhat limited because of m/s sx. Has had some mild weight loss and reinforced her activites (Yoga and water aerobics). Clearly, several of her problems would benefit if she could lose weight. Using CPAP. Benign hypertension 1072 5009 I10 needs meds refilled. [id number] David Green MD Endocrino logy, [address] [address] 05/06/2018 09:50:34 05/06/2018 11:07:00 Impaired fasting glycemia 280336348 R73.01 Pre- diabetes on metformin 750 bid.BG= 101 and 6.2% (and was 6.0%).Had one glucose value over 126 mg/dl. Given a1c under 6.5%, can continue to monitor. If increases, may consider increase in metformin to 2000 mg/day. Tests sugars when on steroids Mixed hyperlipidemia 267 991221 E78.2 Off statin after exacerbati on of previously high CPK. Has been in 400s but went to 900.Has had decrease in CK off statins but this has not been pattern in the past. Previously , had been taken off statins and no sigificant change in CK levels.Goo d to see decrease in CK but unfortunat dewayne, now her LDL is up over 180. Of note, she had an hs-CRP done in 2012 which was 0.3- had been 1.9 in 2009. If ongoing problems with statin and CK levels, may be worth updating CRP. If elevated, could look into PCSK9 inhibitors (Repatha or Praluent) Suggest trying pravastati n 2mg TIS (M/W/F) to start back and see if any muscle pains return.Giv en high risk, have discussed with patient and she agrees to continue meds. Hypothyroidism 24891240 E03.9 needs Rx levoxyl 150 Morbid obesity 760361168 E66.01 BMI over 40. Better about activities but limited because of m/s sx. Has had some mild weight loss and reinforced her activites (Yoga and water aerobics). She attributes weight gain to gabapentin but feels it is worth trade off given improvemen t in sx. Clearly, several of her problems would benefit if she could lose weight. However, this has been a difficult issue for her. Using CPAP. Benign hypertension 1072 5009 I10 needs meds refilled. OK today. [id number] David Green MD Endocrino logy, [address] [address] 11/04/2018 09:45:55 11/04/2018 11:11:25 Hypothyroidism 70519003 E03.9 Levoxyl 150 mcg TSH= 2.54.Clini yumi doing well. Impaired f asting glycemia 915766569 R73.01 Pre- diabetes on metformin 750 bid.BG= 101 and 6.2% (and was 6.0%).Had one glucose value over 126 mg/dl. (130 in 11/04) Given a1c under 6.5%, can continue to monitor. If increases, may consider increase in metformin to 2000 mg/day. Tests sugars when on steroids. Mixed hyperlipidemia 267 728323 E78.2 Complex circumstan ce given hx of elevated CK levels and several M/S sx (in past, not well correlated ) Off statin after exacerbati on of previously high CPK. Had been in 400s but went to 900 (05/05). Has had decrease in CK off statins but this has not been pattern in the past. Previously , had been taken off statins and no significan t change in CK levels.Goo d to see decrease in CK but unfortunat dewayne, her LDL went up over 180. 11/04: Currently on niacin 1000 and ezetimibe- LDL at 117 (was 158); TG but up to 303 (was 254). Of note, she had an hs-CRP done in 2012 which was 0.3- had been 1.9 in 2009. If ongoing problems with statin and CK levels, may be worth updating CRP. If elevated, could look into PCSK9 inhibitors (Repatha or Praluent) although cost has been a major issue. Morbid obesity 303823192 E66.01 BMI over 45.Better about activities but limited because of m/s sx. Has had some mild weight loss and reinforced her activites (Yoga and water aerobics). She attributes weight gain to gabapentin but feels it is worth trade off given improvemen t in sx. Clearly, several of her problems would benefit if she could lose weight. However, this has been a difficult issue for her. Using CPAP. Benign hypertension 1072 5009 I10 OK today. On atenolol. [id number] David Green MD Endocrino logy, [address] [address] 05/28/2019 14:25:47 05/28/2019 15:58:27 Benign hypertension 99318931 I10 OK today. On atenolol. Mixed hyperlipidemia 267 835056 E78.2 Complex circumstan ce given hx of elevated CK levels and several M/S sx (in past, not well correlated ) Off statin after exacerbati on of previously high CPK. Had been in 400s but went to 900 (05/05). On Zetia and niacin. Since 11/04: Currently on niacin 1000 and ezetimibe- LDL at 129 (05/06); was 117 (was 158); TG but up to 303 (was 254). Has had decrease in CK off statins but this has not been pattern in the past. Previously , had been taken off statins and no significan t change in CK levels.Goo d to see decrease in LDL (was up over 180). Of note, she had an hs-CRP done in 2012 which was 0.3- had been 1.9 in 2009. If ongoing problems with statin and CK levels, may be worth updating CRP. If elevated, could look into PCSK9 inhibitors (Repatha or Praluent) although cost has been a major issue. Hypothyroidism [id number] E03.9 Levoxyl 150 mcg TSH= 1.88 (05/06); was 2.54.Clini yumi doing well. Impaired f asting glycemia [id number] R73.01 Pre- diabetes on metformin 750 bid.BG= 133 (05/06); a1c was 6.2%.Befor e, had 101 and 6.2% (and was 6.0%).Had another glucose value over 126 mg/dl. (130 in 11/04) Given a1c under 6.5%, can continue to monitor. Has had difficulty with higher doses of metformin (GI). If crosses over to T2DM, may be able to look at incretin (GLP1-RA) to help with weight loss. Morbid obesity [id number] E66.01 BMI over 45.Better about activities but limited because of m/s sx. Has had some mild weight loss and reinforced her activites (Yoga and water aerobics). In past, she has attributed weight gain to gabapentin but feels it is worth trade off given improvemen t in sx. Clearly, several of her problems would benefit if she could lose weight. However, this has been a difficult issue for her. Using CPAP. [id number] David Green MD Endocrino [facility], [address] [address] 01/14/2020 12:37:45 01/18/2020 07:12:48 Hypothyroidism [id number] E03.9 Levoxyl 150 mcg TSH= 1.74 (10/05); was 1.88 (05/06); was 2.54.Clini yumi doing well. Benign hypertension 1072 5009 I10 OK today. On atenolol. Mixed hyperlipidemia [id number] E78.2 Complex circumstan ce given hx of elevated CK levels and several M/S sx (in past, not well correlated ) Off statin after exacerbati on of previously high CPK. Had been in 400s but went to 900 (05/05). On Zetia and niacin. Since 11/04: Currently on niacin 1000 and ezetimibe- 10/05: 234/280 (was 207)/46 (was 50) /132 (was 129) PRIOR:LDL at 129 (05/06); was 117 (was 158); TG but up to 303 (was 254). Given dx of T2DM in 2020, goal for LDL would normally be to have her on high dose statin. Since that's not possible, appropriat e to use other meds towards goal of getting her under 100.. Has had decrease in CK off statins but this has not been pattern in the past. Previously , had been taken off statins and no significan t change in CK levels.Goo d to see decrease in LDL (was up over 180). Of note, she had an hs-CRP done in 2012 which was 0.3- had been 1.9 in 2009. If ongoing problems with statin and CK levels, may be worth updating CRP. If elevated, could look into PCSK9 inhibitors (Repatha or Praluent) although cost has been a major issue. Morbid obesity [id number] E66.01 BMI over 45.Better about activities but limited because of m/s sx. Has had some mild weight loss and reinforced her activites (Yoga and water aerobics). In past, she has attributed weight gain to gabapentin but feels it is worth trade off given improvemen t in sx. Clearly, several of her problems would benefit if she could lose weight. However, this has been a difficult issue for her. Using CPAP. Type 2 lida betes mellitus without complication [id number] E11.9 2019- two values of 126mg/dl but a1c holding at 6% (10/05).Wan t to add trulicity to metformin 750 (1.5 AM and 1 tab PM)01/05: Has Rx but hasn't started. Concerned about having potential s/e while caring for grandkids. [id number] David Green MD Endocr[facility], [address] [address] 07/19/2020 09:04:47 07/20/2020 06:40:32 Hypothyroidism 29292924 E03.9 Levoxyl 150 mcg. TSH= 5.59 (08/06); was 2.90 (04/07); 1.74 (10/05); was 1.88 (05/06); was 2.54. May be related to having milk at night close to T4. Suggest keep apart and re-check. Clinically doing well. Mixed hyperlipidemia 267 007082 E78.2 Complex circumstan ce given hx of elevated CK levels and several M/S sx (in past, not well correlated ) Off statin after exacerbati on of previously high CPK. Had been in 400s but went to 900 (05/05). On Zetia and niacin. Since 11/04: Currently on niacin 1000 and ezetimibe- ..08/06: 243/320/47 /132 04/07: 241/230/50 /145; ...02/05: 216/251/46 /120 ...10/05: 234/280/46 /132 (was 129) PRIOR: LDL at 129 (05/06); was 117 (was 158); TG but up to 303 (was 254). Given dx of T2DM in 2019, goal for LDL would normally be to have her on high dose statin. Since that's not possible, appropriat e to use other meds towards goal of getting her under 100.. Has had decrease in CK off statins but this has not been pattern in the past. Previously , had been taken off statins and no significan t change in CK levels. Good to see decrease in LDL (was up over 180). Of note, she had an hs-CRP done in 2012 which was 0.3- had been 1.9 in 2009. If ongoing problems with statin and CK levels, may be worth updating CRP. If elevated, could look into PCSK9 inhibitors (Repatha or Praluent) although cost of meds has been a major issue for her. Morbid obesity [id number] E66.01 BMI over 45. Better about activities but limited because of m/s sx. Has had some mild weight loss and reinforced her activites (Yoga and water aerobics in past). Clearly, several of her problems would benefit if she could lose weight. However, this has been a difficult issue for her. Reports doing better when staying with daughter/moraima haskins because she prepares healthier meals. At home by herself, much more easy and comfort meals. In past, she has attributed weight gain to gabapentin but feels it is worth trade off given improvemen t in sx. Using CPAP. Benign hypertension 1072 5009 I10 OK today. On atenolol. Type 2 lida betes mellitus without complication [id number] E11.9 A1c excellent. a1c= 5.7 (08/06); was 5.8 (04/07). On metformin 750 (1.5 in AM and 1 in PM). Wanted to add trulicity to metformin 750 (1.5 AM and 1 tab PM) - too costly per patient. Also on pioglitazo ne (30mg) Reports PCP said large RBCs are stable . [id number] David Green MD [facility], [address] [address] 02/05/2021 14:02:13 02/06/2021 06:32:10 Benign hypertension 33846778 I10 OK today. On atenolol. Mixed hyperlipidemia 267 077773 E78.2 Complex circumstan ce given hx of elevated CK levels and several M/S sx (in past, not well correlated ) Off statin after exacerbati on of previously high CPK. Had been in 400s but went to 900 (05/05). On Zetia and niacin. Since 11/04: Currently on niacin 1000 and ezetimibe- 02/06: 270-208 (was 256)-49-17 9 (was 168)08/06: 243/320/47 /132 04/07: 241/230/50 /145; ...02/05: 216/251/46 /120 ...10/05: 234/280/46 /132 (was 129) PRIOR: LDL at 129 (05/06); was 117 (was 158); TG but up to 303 (was 254). Given dx of T2DM in 2020, goal for LDL would normally be to have her on high dose statin. Since that's not possible, appropriat e to use other meds towards goal of getting her under 100.. Has had decrease in CK off statins but this has not been pattern in the past. Previously , had been taken off statins and no significan t change in CK levels. Good to see decrease in LDL (was up over 180). Of note, she had an hs-CRP done in 2012 which was 0.3- had been 1.9 in 2009. If ongoing problems with statin and CK levels, may be worth updating CRP. If elevated, could look into PCSK9 inhibitors (Repatha or Praluent) although cost of meds has been a major issue for her. Hypothyroidism 43899326 E03.9 Levoxyl 150 mcg. TSH= 1.36 (02/06); was 3.8 (11/06); was 5.59 (08/06); was 2.90 (04/07); 1.74 (10/05); was 1.88 (05/06); was 2.54. Better since taking T4 during middle of night. Takes when wakes up in middle of night. Clinically doing well. Morbid obesity 043892962 E66.01 BMI over 45. Better about activities but limited because of m/s sx. Has had some mild weight loss and reinforced her activites (Yoga and water aerobics in past). Clearly, several of her problems would benefit if she could lose weight. However, this has been a difficult issue for her. Reports doing better when staying with daughter/moraima haskins because she prepares healthier meals. At home by herself, much more easy and comfort meals. In past, she has attributed weight gain to gabapentin but feels it is worth trade off given improvemen t in sx. Using CPAP. Type 2 lida betes mellitus without complication [id number] E11.9 A1c excellent. a1c= 5.8 (02/06); was 5.7 (08/06); was 5.8 (04/07). On metformin 750 (1.5 in AM and 1 in PM). Wanted to add trulicity to metformin 750 (1.5 AM and 1 tab PM) - too costly per patient. Also on pioglitazo ne (30mg) Reports PCP said large RBCs are stable . [id number] David Green MD [facility], [address] [address] 08/08/2021 11:49:55 08/10/2021 06:40:25 Mixed hyperlipidemia 288566977 E78.2 Complex circumstan ce given hx of elevated CK levels and several M/S sx (in past, not well correlated )In addition, unable to tolerate multiple meds. Cost also an issue. Off statin after exacerbati on of previously high CPK. Had been in 400s but went to 900 (05/05). On Zetia, niacin, vascepa (1 g bid- can't tolerate more) and recently plant sterols (cholestof f). 08/07: 241/254/44 /89963/21: 204/210/51 /11102/06: 270-208 (was 256)-49-17 9 (was 168)08/06: 243/320/47 /132 04/07: 241/230/50 /145; ...02/05: 216/251/46 /120 ...10/05: 234/280/46 /132 (was 129) PRIOR: LDL at 129 (05/06); was 117 (was 158); TG but up to 303 (was 254). Given dx of T2DM in 2019, goal for LDL would normally be to have her on high dose statin. Since that's not possible, appropriat e to use other meds towards goal of getting her under 100.. Has had decrease in CK off statins but this has not been pattern in the past. Previously , had been taken off statins and no significan t change in CK levels. Good to see decrease in LDL (was up over 180). Of note, she had an hs-CRP donehs-CRP = 3.4 (08/04); had been 0.3 (2012); was 1.9 in 2009.CRP as vascular inflammato ry marker may be demonstrat ing increased CV risk. Type 2 lida betes mellitus without complication 568702178 E11.9 A1c excellent. a1c= 5.6 (08/07); was 5.7 (04/08); was 5.8 (02/06); was 5.7 (08/06); was 5.8 (04/07); was 6% (10/05)On metformin 750 (1.5 in AM and 1 in PM). Also on pioglitazo ne (30mg) Wanted to add trulicity to metformin 750 (1.5 AM and 1 tab PM) - would likely help NAFLD and weight loss. Unfortunat dewayne, too costly per patient. Reports PCP said large RBCs are stable . Hypothyroidism 60261563 E03.9 Levoxyl 150 mcg. TSH= 4.6 (08/07); was 1.84 (04/08); was 1.36 (02/06); was 3.8 (11/06); was 5.59 (08/06); was 2.90 (04/07); 1.74 (10/05); was 1.88 (05/06); was 2.54. Better since taking T4 during middle of night. Takes when wakes up in middle of night. Clinically doing well.Monit or labs- may yet need dose adjustment . Benign hypertension 1072 5009 I10 OK today. On atenolol. Morbid obesity 253627801 E66.01 BMI over 45. Better about activities but limited because of m/s sx. Has had some mild weight loss and reinforced her activities (Mostly water aerobics lately; had done Yoga in past). Clearly, several of her problems would benefit if she could lose weight. However, this has been a difficult issue for her. Reports doing better when staying with ashley/moraima haskins because she prepares healthier meals. At home by herself, much more easy and comfort meals. In past, she has attributed weight gain to gabapentin but feels it is worth trade off given improvemen t in sx. Using CPAP. Non-alcoho lic fatty liver [id number] K76.0 By [place]/S in 2020. Had similar finding on u/s in 2019.U/S doesn't allow good comparison s or international exchange coordinator time.On actos (pioglitaz one). Can't afford incretin which would likely be better option. Might want to consider fibroscan elastograp hy which would assist in providing staging.Shahnaz ken discuss with GI (Catrachito Garcia). [id number] David Green MD [facility], [address] [address] 01/30/2022 10:02:53 02/01/2022 14:13:13 Mixed hyperlipidemia [id number] E78.2 Complex circumstan ce given hx of elevated CK levels and several M/S sx (in past, not well correlated )In addition, unable to tolerate multiple meds. Cost also an issue. Off statin after exacerbati on of previously high CPK. Had been in 400s but went to 900 (05/05). On Zetia, niacin, vascepa (1 g bid- can't tolerate more) and recently plant sterols (cholestof f).Tried PCSK9i but had severe GI s/e.02/07: 267/185/47 /183;11/07: 249-168-47 -16808/07: 241/254/44 /70767/21: 204/210/51 /11102/06: 270-208 (was 256)-49-17 9 (was 168)08/06: 243/320/47 /132 04/07: 241/230/50 /145; ...02/05: 216/251/46 /120 ...10/05: 234/280/46 /132 (was 129) PRIOR: LDL at 129 (05/06); was 117 (was 158); TG but up to 303 (was 254). Given dx of T2DM in 2019, goal for LDL would normally be to have her on high dose statin. Since that's not possible, appropriat e to use other meds towards goal of getting her under 100.. Has had decrease in CK off statins but this has not been pattern in the past. Previously , had been taken off statins and no significan t change in CK levels. Good to see decrease in LDL (was up over 180). Of note, she had an hs-CRP donehs-CRP = 3.4 (08/04); had been 0.3 (2012); was 1.9 in 2009.CRP as vascular inflammato ry marker may be demonstrat ing increased CV risk. She recalls negative cath in 2002. Has sweats with yard work- doesn't check BG. Feels better with rest and gatorade (with sugar). Denies CP, left arm pain, nausea. Type 2 lida betes mellitus without complication 294015741 E11.9 A1c excellent. a1c= 5.7 (02/07 and 11/07) was 5.6 (08/07); was 5.7 (04/08); was 5.8 (02/06); was 5.7 (08/06); was 5.8 (04/07); was 6% (5/20)On metformin 750 (1.5 in AM and 1 in PM). Also on pioglitazo ne (30mg) Wanted to add trulicity to metformin (1000 bid) - would likely help NAFLD and weight loss. Unfortunat dewayne, too costly per patient. Reports PCP said large RBCs are stable . Non-alcoho lic fatty liver [id number] K76.0 By U/S in 2020. Had similar finding on u/s in 2018.U/S doesn't allow good comparison s or international exchange coordinator time.On actos (pioglitaz one). Can't afford incretin which would likely be better option. Might want to consider fibroscan elastograp hy which would assist in providing staging.Mi suellen discuss with GI (Catrachito Garcia).Tr y to find where fibroscan can be done. Hypothyroidism 41603107 E03.9 Levoxyl 150 mcg. TSH= 3.47 (02/07); was 2.26 (11/07) was 4.6 (08/07); was 1.84 (04/08); was 1.36 (02/06); was 3.8 (11/06); was 5.59 (08/06); was 2.90 (04/07); 1.74 (10/05); was 1.88 (05/06); was 2.54. Better since taking T4 during middle of night. Takes when wakes up in middle of night. Clinically doing well.Monit or labs- may yet need dose adjustment . Benign hypertension 1072 5009 I10 OK today. On atenolol. Morbid obesity 477971137 E66.01 BMI over 45. Better about activities but limited because of m/s sx. Has had some mild weight loss and reinforced her activities (Mostly water aerobics lately; had done Yoga in past). Clearly, several of her problems would benefit if she could lose weight. However, this has been a difficult issue for her. Reports doing better when staying with daughter/moraima haskins because she prepares healthier meals. At home by herself, much more easy and comfort meals. In past, she has attributed weight gain to gabapentin but feels it is worth trade off given improvemen t in sx. Using CPAP. Morbid obesity 742423792 E66.01 BMI over 45. Better about activities but limited because of m/s sx. Has had some mild weight loss and reinforced her activities (Mostly water aerobics lately; had done Yoga in past). Clearly, several of her problems would benefit if she could lose weight. However, this has been a difficult issue for her. Reports doing better when staying with daughter/g [employer] because she prepares healthier meals. At home by herself, much more easy and comfort meals. In past, she has attributed weight gain to gabapentin but feels it is worth trade off given improvemen t in sx. Using CPAP. Benign hypertension 1072 5009 I10 OK today. On atenolol. [id number] David Green MD Endocr[facility], [address] [address] 07/31/2022 10:11:31 08/05/2022 13:29:05 Mixed hyperlipidemia 621724235 E78.2 Complex circumstan ce given hx of elevated CK levels and several M/S sx (generally , not well correlated )In addition, unable to tolerate multiple meds. Cost also an issue. Off statin after exacerbati on of previously high CPK. Had been in 400s but went to 900 (05/05). Tried PCSK9i but had severe GI s/e. On Zetia, niacin, vascepa (1 g bid- can't tolerate more) and plant sterols (cholestof f) and welchol. 08/08: 242/254/44 /80695: 245-251-46 -149;02/07: 267/185/47 /183;11/07: 249-168-47 -16808/07: 241/254/44 /79936/: 204/210/51 /1119/: 270-208 (was 256)-49-17 9 (was 168)08/06: 243/320/47 /132 04/07: 241/230/50 /145; ...02/05: 216/251/46 /120 ...10/05: 234/280/46 /132 (was 129) PRIOR: LDL at 129 (05/06); was 117 (was 158); TG but up to 303 (was 254). Given dx of T2DM in 2019, goal for LDL would normally be to have her on high dose statin. Since that's not possible, appropriat e to use other meds towards goal of getting her as low as possible. Had decrease in CK off statins but this has not been pattern in the past. Previously , had been taken off statins and no significan t change in CK levels. Good to see decrease in LDL (was up over 180). Of note, she had an hs-CRP donehs-CRP = 3.4 (08/04); had been 0.3 (2012); was 1.9 in 2009.CRP as vascular inflammato ry marker may be demonstrat ing increased CV risk. She recalls negative cath in 2002. Has sweats with yard work- doesn't check BG. Feels better with rest and gatorade (with sugar). Denies CP, left arm pain, nausea. Type 2 lida betes mellitus without complication [id number] E11.9 A1c excellent. a1c= 5.5 (08/08); was 5.6 (05/09) was 5.7 (02/07 and 11/07) was 5.6 (08/07); was 5.7 (04/08); was 5.8 (02/06); was 5.7 (08/06); was 5.8 (04/07); was 6% (10/05)On metformin 750 (1.5 in AM and 1 in PM). Also on pioglitazo ne (30mg) Wanted to add trulicity to metformin (1000 bid) - would likely help NAFLD and weight loss. Unfortunat dewayne, too costly per patient. Reports PCP said large RBCs are stable . Non-alcoho lic fatty liver 846665760 K76.0 By [place]/S in 2020. Had similar finding on u/s in 2019.U/S doesn't allow good comparison s or international exchange coordinator time.On actos (pioglitaz one). Can't afford incretin which would likely be better option. Had fibroscan through GI at [facility]. Has wanted to monitor for any developmen t of liver masses. Pt agrees with yearly scan. Benign hypertension 1072 5009 I10 OK today. On atenolol.: 145 / 67; Suggest she check at home. Hypothyroidism 52944454 E03.9 Levoxyl 150 mcg. Using generic and is OK with that. TSH= 2.24 (08/08) was 2.75 (05/09) was 3.47 (02/07); was 2.26 (11/07) was 4.6 (08/07); was 1.84 (04/08); was 1.36 (02/06); was 3.8 (11/06); was 5.59 (08/06); was 2.90 (04/07); 1.74 (10/05); was 1.88 (05/06); was 2.54. Better since taking T4 during middle of night. Takes when wakes up in middle of night. Clinically doing well.Monit or labs- may yet need dose adjustment . Morbid obesity 745302952 E66.01 BMI over 45. Better about activities but limited because of m/s sx. Has had some mild weight loss and reinforced her activities (Mostly water aerobics lately; had done Yoga in past). Clearly, several of her problems would benefit if she could lose weight. However, this has been a difficult issue for her. Reports doing better when staying with daughter/moraima haskins because she prepares healthier meals. At home by herself, much more easy and comfort meals. In past, she has attributed weight gain to gabapentin but feels it is worth trade off given improvemen t in sx. Using CPAP. Counseled by member of primary health care team [id number] Z71.9 Discussed importance of reducing 10-year cardiovasc ular disease risk. Things that decrease risk for cardiovasc ular events include: - eating a healthy diet (emphasis on vegetables ) and low in simple carbohydra franck (bread, rice, pasta, alcohol, potatoes), decreasing processed foods, limiting juice and alcohol, limiting saturated fats (butter, ice cream, and cheeses), and adding regular daily activity. - working to keep blood pressure <130/80.- controllin g cholestero l values (LDL and triglyceri dmitri) by eating a healthy diet, exercising and taking medication s as needed.- managing daily stress with meditation or yoga. Depending on your other cardiovasc ular risks your practition er may recommend taking daily aspirin. [id number] David Green MD Endocrino log[facility], [address] [address] 03/19/2023 13:03:07 03/19/2023 15:56:53 Mixed hyperlipidemia 730845116 E78.2 UNCONTROLL ED: Complex circumstan ce given hx of elevated CK levels and several M/S sx (generally , not well correlated )In addition, unable to tolerate multiple meds. Cost also an issue. Off statin after exacerbati on of previously high CPK. Had been in 400s but went to 900 (05/05). Tried PCSK9i but had severe GI s/e. On Zetia, niacin, OTC fish oil (1 cap daily; didn't tolerate vascepa) and plant sterols (cholestof f) and welchol (one BID).02/08: 248/255/44 /15311/08: 225/191/55 /13208/08: 242/254/44 /51789/22: 245-251-46 -149;02/07: 267/185/47 /183;11/07: 249-168-47 -16808/07: 241/254/44 /97041: 204/210/51 /1119: 270-208 (was 256)-49-17 9 (was 168)08/06: 243/320/47 /132 04/07: 241/230/50 /145; ...02/05: 216/251/46 /120 ...10/05: 234/280/46 /132 (was 129) OLDER: LDL at 129 (05/06); was 117 (was 158); TG but up to 303 (was 254). Given dx of T2DM in 2019, goal for LDL would normally be to have her on high dose statin. Since that's not possible, appropriat e to use other meds towards goal of getting her as low as possible. Had decrease in CK off statins but this has not been pattern in the past. Previously , had been taken off statins and no significan t change in CK levels. Good to see decrease in LDL (was up over 180). Of note, she had an hs-CRP donehs-CRP = 3.4 (08/04); had been 0.3 (2012); was 1.9 in 2009.CRP as vascular inflammato ry marker may be demonstrat ing increased CV risk. She recalls negative cath in 2002. Has sweats with yard work- doesn't check BG. Feels better with rest and Gatorade (with sugar). Denies CP, left arm pain, nausea. Type 2 lida betes mellitus without complication [id number] E11.9 A1c excellent. a1c= 5.6 (02/08 and 11/08) was 5.5 (08/08); was 5.6 (05/09) was 5.7 (02/07 and 11/07) was 5.6 (08/07); was 5.7 (04/08); was 5.8 (02/06); was 5.7 (08/06); was 5.8 (04/07); was 6% (10/05)On metformin 750 (1.5 in AM and 1 in PM). Metformin and pioglitazo ne (30mg) Wanted to add trulicity to metformin (1000 bid) - would likely help NAFLD and weight loss. Unfortunat dewayne, too costly per patient. Reports PCP said large RBCs are stable . Non-alcoho lic fatty liver 977189693 K76.0 By [place]/S in 2020. Had similar finding on u/s in 2019.U/S doesn't allow good comparison s or international exchange coordinator time.On actos (pioglitaz one). Can't afford incretin which would likely be better option. Had fibroscan through GI at [facility]. Has wanted to monitor for any developmen t of liver masses. Pt agrees with yearly scan.04/10 : Elastograp hy: Stiffness down (better) to 4.8 from 5.7 (2021) Hypothyroidism 53419918 E03.9 Levoxyl 150 mcg. Using generic and is OK with that. TSH= 4.99 (02/08) was 2.24 (08/08) was 2.75 (05/09) was 3.47 (02/07); was 2.26 (11/07) was 4.6 (08/07); was 1.84 (04/08); was 1.36 (02/06); was 3.8 (11/06); was 5.59 (08/06); was 2.90 (04/07); 1.74 (10/05); was 1.88 (05/06); was 2.54. Better since taking T4 during middle of night. Takes when wakes up in middle of night. Clinically doing well.Monit or labs- may yet need dose adjustment . Morbid obesity 726434904 E66.01 BMI over 45. Better about activities but limited because of m/s sx. Has had some mild weight loss and reinforced her activities (Mostly water aerobics lately; had done Yoga in past). Clearly, several of her problems would benefit if she could lose weight. However, this has been a difficult issue for her. Reports doing better when staying with daughter/moraima haskins because she prepares healthier meals. At home by herself, much more easy and comfort meals. In past, she has attributed weight gain to gabapentin but feels it is worth trade off given improvemen t in sx. Using CPAP. Counseled by member of primary health care team [id number] Z71.9 Discussed importance of reducing 10-year cardiovasc ular disease risk. Things that decrease risk for cardiovasc ular events include: - eating a healthy diet (emphasis on vegetables ) and low in simple carbohydra franck (bread, rice, pasta, alcohol, potatoes), decreasing processed foods, limiting juice and alcohol, limiting saturated fats (butter, ice cream, and cheeses), and adding regular daily activity. - working to keep blood pressure <130/80.- controllin g cholestero l values (LDL and triglyceri dmitri) by eating a healthy diet, exercising and taking medication s as needed.- managing daily stress with meditation or yoga. Depending on your other cardiovasc ular risks your practition er may recommend taking daily aspirin. [id number] David Green MD Endocrino logy, [address] [phone] 10/01/2023 14:13:29 10/02/2023 06:45:41 Mixed hyperlipidemia [id number] E78.2 UNCONTROLL ED: Complex circumstan ce given hx of elevated CK levels and several M/S sx (generally , not well correlated )In addition, unable to tolerate multiple meds. Cost also an issue. Off statin after exacerbati on of previously high CPK. Had been in 400s but went to 900 (05/05). Tried PCSK9i but had severe GI s/e. On Zetia, niacin, OTC fish oil (1 cap daily; didn't tolerate vascepa) and plant sterols (cholestof f) and welchol (one BID).08/09: 236/151/54 /182;05/10 ; 229/203/46 /142;02/08: 248/255/44 /1536: 225/191/55 /13208/08: 242/254/44 /07129: 245-251-46 -149;02/07: 267/185/47 /183;11/07: 249-168-47 -16808/07: 241/254/44 /13770/21: 204/210/51 /11102/06: 270-208 (was 256)-49-17 9 (was 168)08/06: 243/320/47 /132 04/07: 241/230/50 /145; ...02/05: 216/251/46 /120 ...10/05: 234/280/46 /132 (was 129) OLDER: LDL at 129 (05/06); was 117 (was 158); TG but up to 303 (was 254). Given dx of T2DM in 2019, goal for LDL would normally be to have her on high dose statin. Since that's not possible, appropriat e to use other meds towards goal of getting her as low as possible. Had decrease in CK off statins but this has not been pattern in the past. Previously , had been taken off statins and no significan t change in CK levels. Good to see decrease in LDL (was up over 180). Of note, she had an hs-CRP donehs-CRP = 3.4 (08/04); had been 0.3 (2012); was 1.9 in 2009.CRP as vascular inflammato ry marker may be demonstrat ing increased CV risk. She recalls negative cath in 2002. Has sweats with yard work- doesn't check BG. Feels better with rest and Gatorade (with sugar). Denies CP, left arm pain, nausea. 10/09: Continue on regimen the best she can. Non-alcoho lic fatty liver [id number] K76.0 By U/S in 2020. Had similar finding on u/s in 2018.U/S doesn't allow good comparison s or international exchange coordinator time.On actos (pioglitaz one). Can't afford incretin which would likely be better option. Had fibroscan through GI at [facility]. Has wanted to monitor for any developmen t of liver masses. Pt agrees with yearly scan.04/10 : Elastograp hy: Stiffness down (better) to 4.8 from 5.7 (2021)10/09 : Update in fall 2023. Hypothyroidism [id number] E03.9 Levoxyl 150 mcg. Using generic and is OK with that. TSH= 1.92 (08/09) was 5.08 (05/10) was 4.99 (02/08) was 2.24 (08/08) was 2.75 (05/09) was 3.47 (02/07); was 2.26 (11/07) was 4.6 (08/07); was 1.84 (04/08); was 1.36 (02/06); was 3.8 (11/06); was 5.59 (08/06); was 2.90 (04/07); 1.74 (10/05); was 1.88 (05/06); was 2.54. Better since taking T4 during middle of night. Takes when wakes up in middle of night. Clinically doing well.Monit or labs- may yet need dose adjustment . Morbid obesity [id number] E66.01 BMI over 45. Better about activities but limited because of m/s sx. Has had some mild weight loss and reinforced her activities (Mostly water aerobics lately; had done Yoga in past). Clearly, several of her problems would benefit if she could lose weight. However, this has been a difficult issue for her. Reports doing better when staying with ashley/moraima haskins because she prepares healthier meals. At home by herself, much more easy and comfort meals. In past, she has attributed weight gain to gabapentin but feels it is worth trade off given improvemen t in sx. Using CPAP. Benign hypertension 1072 5009 I10 OK today. On atenolol.: 145 / 67; Suggest she check at home. Peripheral neuropathy due to type 2 diabetes mellitus [id number] 107 E11.42 A1c excellent. a1c= 5.8 (08/09) was 5.6 (05/10) was 5.6 (02/08 and 11/08) was 5.5 (08/08); was 5.6 (05/09) was 5.7 (02/07 and 11/07) was 5.6 (08/07); was 5.7 (04/08); was 5.8 (02/06); was 5.7 (08/06); was 5.8 (04/07); was 6% (5)On metformin 750 (1.5 in AM and 1 in PM). Metformin and pioglitazo ne (30mg) Wanted to add trulicity to metformin (1000 bid) - would likely help NAFLD and weight loss. Unfortunat dewayne, too costly per patient. Reports PCP said large RBCs are stable . Heme friend wants pt to get CBC q 6m. Suggest discuss with PCP. Since on metformin, will check B12 [id number] David Green MD Endocrino logy, [address] [phone] 04/06/2024 13:05:17 04/08/2024 09:48:15 Mixed hyperlipidemia [id number] E78.2 UNCONTROLL ED: Complex circumstan ce given hx of elevated CK levels and several M/S sx (generally , not well correlated )In addition, unable to tolerate multiple meds. Cost also an issue.Off statin after exacerbati on of previously high CPK. Had been in 400s but went to 900 (05/05). Tried PCSK9i but had severe GI s/e. On Zetia, niacin, and plant sterols (cholestof f) and welchol (one BID). Going off welchol (when runs out- expense). Will go back to OTC fish oil (didn't tolerate vascepa): discussion about milk intake- often has whatever is on sale/avail able- can be 2%. Push for skim. 02/09: 235/234/46 /14608/09: 236/151/54 /182;05/10 ; 229/203/46 /142;02/08: 248/255/44 /15311/08: 225/191/55 /13208/08: 242/254/44 /21855/22: 245-251-46 -149;02/07: 267/185/47 /183;11/07: 249-168-47 -16808/07: 241/254/44 /95091: 204/210/51 /11102/06: 270-208 (was 256)-49-17 9 (was 168)08/06: 243/320/47 /132 04/07: 241/230/50 /145; ...02/05: 216/251/46 /120 ...10/05: 234/280/46 /132 (was 129) OLDER: LDL at 129 (05/06); was 117 (was 158); TG but up to 303 (was 254). Given dx of T2DM in 2019, goal for LDL would normally be to have her on high dose statin. Since that's not possible, appropriat e to use other meds towards goal of getting her as low as possible. Had decrease in CK off statins but this has not been pattern in the past. Previously , had been taken off statins and no significan t change in CK levels. Good was better on regimen with niacin/abhijeet rols/resin /zetia Of note, she had an hs-CRP donehs-CRP = 3.4 (08/04); had been 0.3 (2012); was 1.9 in 2009.CRP as vascular inflammato ry marker may be demonstrat ing increased CV risk. She recalls negative cath in 2002. Has sweats with yard work- doesn't check BG. Feels better with rest and Gatorade (with sugar). Denies CP, left arm pain, nausea. 04/11: Continue on regimen the best she can. More skim milk, less 2% Peripheral neuropathy due to type 2 diabetes mellitus [id number] 107 E11.42 A1c excellent. a1c= 5.8 (02/09) was 5.7 (11/09) was 5.8 (08/09) was 5.6 (05/10) was 5.6 (02/08 and 11/08) was 5.5 (08/08); was 5.6 (05/09) was 5.7 (02/07 and 11/07) was 5.6 (08/07); was 5.7 (04/08); was 5.8 (02/06); was 5.7 (08/06); was 5.8 (04/07); was 6% (10/05)On metformin 750 (1.5 in AM and 1 in PM). Metformin and pioglitazo ne (30mg) Wanted to add trulicity to metformin (1000 bid)- would likely help NAFLD and weight loss. Unfortunat dewayne, too costly per patient. Also didn't tolerate. Reports PCP said large RBCs are stable . Heme friend wants pt to get CBC q 6m. Suggest discuss with PCP. Since on metformin, will check B12 Non-alcoho lic fatty liver [id number] K76.0 By U/S in 2020. Had similar finding on u/s in 2019.U/S doesn't allow good comparison s or international exchange coordinator time.On actos (pioglitaz one). Can't afford incretin which would likely be better option. Had fibroscan through GI at [facility]. Has wanted to monitor for any developmen t of liver masses. Pt agrees with yearly scan.04/10 : Elastograp hy: Stiffness down (better) to 4.8 from 5.7 (2021)03/20 4: Elastograp hy doing OK. Hypothyroidism [id number] E03.9 Levoxyl 150 mcg. Using generic and is OK with that. TSH= 1.8 (02/09) was 1.59 (11/09) was 1.92 (08/09) was 5.08 (05/10) was 4.99 (02/08) was 2.24 (08/08) was 2.75 (05/09) was 3.47 (02/07); was 2.26 (11/07) was 4.6 (08/07); was 1.84 (04/08); was 1.36 (02/06); was 3.8 (11/06); was 5.59 (08/06); was 2.90 (04/07); 1.74 (10/05); was 1.88 (05/06); was 2.54. Better since taking T4 during middle of night. Takes when wakes up in middle of night. Clinically doing well.Monit or labs- may yet need dose adjustment . Morbid obesity [id number] E66.01 BMI over 45. Better about activities but limited because of m/s sx. Has had some mild weight loss and reinforced her activities (Mostly water aerobics lately; had done Yoga in past). Clearly, several of her problems would benefit if she could lose weight. However, this has been a difficult issue for her. Reports doing better when staying with daughter/moraima haskins because she prepares healthier meals. At home by herself, much more easy and comfort meals. In past, she has attributed weight gain to gabapentin but feels it is worth trade off given improvemen t in sx. Using CPAP. Benign hypertension 1072 5009 I10 OK today. On atenolol. Health Concerns Section Related Observation LastModified by Organization Detai ls LastModified Time None Recorded Concern Status LastModified by Organization Details LastModified Time None Recorded Advance Directives Directive None Recorded Payers Encounter Date Sequence Insurance Name Policy Number Policy Powell Covered Member ID Powell Member ID Guarantor Name 01/30/2022 1 [place] [id number] 02 Juli L L Anabelle [id number] Juli Ahn 07/31/[address] [place], [place] [id number] 02 Juli L L Anabelle [id number] Juli Anabelle 03/19/[address] [place], [place] [id number] 02 Juli L L Anabelle [id number] Juli Anabelle 10/01/[address] [place], [place] [id number] 02 Juli L L Anabelle [id number] Juli Anabelle 04/06/[address] [place] [address] 02 Juli L L Anabelle [id number] Juli Anabelle Notes Date Note Type Note Provider Name and Address Organization Details Recorded Time 2021 text/h tml PCP is Mila. F/U for hypothyroid, hyperlipidemia, DM (2019) with known elevated CPK levels independent of statin tx. Follow-Up: mixed hyperlipidemiaFollow-Up: morbid obesityFollow-Up: benign hypertensionFollow-Up: hypothyroidismFollow-Up: abnormal glucose levelDiabetes Type IILV on 08/08/21Last labs on 01/25/22 A1C -5.7Lab orders in place until 07/2022Last bone density on 07/21/2019PT does not checks blood sugars SOCIAL:08/07: To [place] monthly-Exercise- water aerobics BIS.02/06: Going to [place] monthly- Besides helping with kids, re-did deck (scraped, repaired) and also shed and cabinets and repainted chairs/tables. Caulking in bath. Fixed windows too. Drinks 1/2 gallon and 2 scoops of powdered gatorade and mixes with tonic water). Some exercises for arthritis.02/07: In [place] - [place] commented on healthy foods for dinner. Gardening for activity. Uses gatorade (with sugar)- powder only comes with sugar- can't afford bottles w/o sugar. -MUSCULOSKELETAL:Overall, Neurontin has made the most difference in m/s sx. But decreased dose due to weight gain effects.Gabapentin - dose is 600 daily. Has been 600--900. was 1200. Multiple issues but not clearly related to statin use.Has had several courses of steroid injections in back (L4-L5; didn't do much good).After foot injection, also OK (09/12/15) 05/05: PCP Mila did CK and it was >900. Off statin and CK down to 500s.Had injection in buttocks (05/05 and before in 07/2015). Didn't help much. 2019: Muscles slowly recovering after stopped pravastatin. Better up to top of thighs (still hurt when walks). Physiatry for right hip pain. Shoulders too. Pre-pandemic, water aerobics help knees. Has chronic pain (mostly joint, not muscle)- has not correlated with elevated CK levels (worth noting that CK up even when not on statin meds). Has banisters on both sides of stairs and bath. Has been unable to go down stairs frontwards while carrying big bundle (afraid of balance).08/07 Continues to go down backwards if carrying something big/bulky. Chronic shoulder problems- on/off (2020)02/07: No major changes.08/07: Has traction device for cervical spine- told of herniation.Mostly attributes to disc. (in traction, feels much better but none over a year).Icy/Hot better than Salon-pas for knees.Reviewed again CBD- encouraged her to try topical to see if it helps. Ultimately, may be an option to see about medical MJ. Discussed trying to avoid high dose continuous NSAIDS due to renal problems. 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 Aleve PM. 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 MUSCLE CRAMPS: In past, less with tonic water (1/2 gallon mixed with scoop of gatorade)Also restless legs- takes ativan and helps- also sleeps better.She feels ativan helps with restless legs and valium helps more with leg pain.PCP has told her she can only have one Rx for benzos.Occ 1/2 ativan- helps when pain from arthritis is too severe.- She's using ativan sparingly. BONE HEALTH:BMD in 08/05 ([facility]):Region............................ .......BMD........T-score.....Classificati on AP Spine (L1-L4)..............1.141............0.9. ........NormalFemoral Neck (Right)....0.826............-0.2.......Nor malTotal Hip (Right)..............1.065............1.0. .......Normal 02/07: Sweats while doing yard work. Discussed differential which includes angina equivalent or hypoglycemia as well as option of dehydration. Pt. drinks gatorade (with sugar) and rests and feels better. Suggests she could have cardiac w/u and/or test BG. 02/07: Recent cellulitis right leg.Sx of pins and needles right hand. using splint and helps. ROS:No f/c.H/A: No severe.No COVID. No SOB. Still notes JAMA going from cellar to 2nd floor. No loss of taste/smell.Not dizzy with standing.No n/v. No abdominal pain. Diarrhea on occasion- attributes to meds. Restless leg sx- comments that no one will give her lorazepam. Eczema intermittent as before (maybe something under breast- says it's not fungus).No bruises or rashes or itching. David Green MD [address] [place] [address], [place], [phone], [facility] 2 22:12:58 2021 text/h tml DiabetesReported bypatient.Labs:last Hemoglobin A1C: (5.7 (02/07 and 11/07) was 5.6 (08/07); was 5.7 (04/08); was 5.8 (02/06); was 5.7 (08/06); was 5.8 (04/07); was 6% (10/05)); microalbumin/creatinine ratio: 2021 normal; serum creatinine: normal Diabetes Medications:metformin (Mostly 1000 (500mg 2 tabs) x bid. Was 750x1.5 in AM and 750 in PM.); pioglitazone (30mg); No Trulicity- too costly. Renal/HTN Medications:atenalol Lipid Medications:niacin (1000 mg at HS. Takes ASA before- no flushing.); fish oil (vascepa- Mostly 1 pill daily- thinks might be causing diarrhea. Was two BID gave pain in legs (thighs and post calves). Stopped and s/e went away. 1 bid is OK.); Zetia. CholestOff- Only taking 1 tab BID. tolerating OK but worried about diarrhea. Annamaria gave her IBS. Other Medications:gabapentin (600mg at night. also one prn.) Associated Symptoms:no polyuria (No change.); no nocturia; no burning or discomfort with urination (not recently. Vagifem.); no foul odor or discharge; no polydypsia (Some dry mouth. CPAP. Or meds.);blurred vision(Told macular degeneration gone after taking vitamins. (Mauriatis).); no weight gain; no weight loss; Weight: Holding (02/07; 08/07) around 290 (08/07); was 280 at end of holidays (2019)- Says she eats better when with kids - makes healthier meals. Refers to eating poorly when alone. Had lost 20# during 2020 after decreasing gabapentin in half. Using biotene for dry mouth (attributes to CPAP). To bed at [place]. Having less UTIs on estrogen Vagisil. ( pill on a stick ) BIS. Cardiac / Eye / Podiatric / Renal / Vascular Symptomsno retinopathy (2021); no kidney disease; Cath in 2002. Hypoglycemia Symptomsfrequency of hypoglycemic episodesinfrequently; Occ if misses lunch. Notices around 5PM. [place] weak. Usually eats apple on way to gym to help avoid.Notes:T2DM: with BG x 2 over 126. BG was up to 131 (10/05) and 133 (05/06);Not checking BG Some diarrhea- mostly after supper. Takes fish oil at supper. Also cholestoff takes one pill BID.peptobismol often helps but taking at early sx- suggest try and take earlier.Other option might be Welchol. SLEEP APNEA: Using CPAP machine. NAFLD: Hx of fatty liver in 2020: Echogenic liver likely representing hepatic steatosis. No suspicious lesion. Cholelithiasis without evidence of acute cholecystitis.Results similar to 05/06.Stable appearance of markedly echogenic liver likely representing severe hepatic steatosis.She hasn't wanted to do follow-up. Reviewed option of fibroscan elastography which would assist in providing staging. Sees GI. [facility]'t have fibroscan Reviewed:Up around 10. HS is 11-12 (reads and then asleep).BKFST: cereal, OJ, coffee, fruit, bread. oatmeal/eggs.LUNCH: Doesn't usually have.Snacks (4PM)- milk and something else.Dinner: not big meal.02/07: cost is an issue. In past, have pointed out idea of making meal and freezing leftovers but she seems sad/depressed about being alone.Talks about not seeing anyone on walks (or they cross over street during pandemic). OLDER LABS:A1c was 6% (10/05); was 6.2% (05/06; was 11/04); was 6%- has been slowly increasing. Was 5.7%. was 6%; was 5.6%. ThyroidReported bypatient.Previous Evaluation:TSH: (3.47 (02/07); was 2.26 (11/07) was 4.6 (08/07); was 1.84 (04/08); was 5.59 (07/28); was 2.90 (04/07); was 1.74 (10/05); ); free T4: (1.01 (02/07); was 1.17 (11/07) was 1.26 (08/04) was 1.15 (05/05); was 1.11 (11/03); was 1.19 (04/04); was 1.24 (11/02)-) Treatment:generic, dose: 150 mcg (daily;); Takes at HS or sometimes in middle of night. Sometimes has milk and not sure of timing relative to thyroid. Constitutional:no cold intolerance; no heat intolerance (Chronic with fewer hot flashes); no weight loss; no weight gain; Niacin (1000 at HS)- baby ASA Sweats when being active with house cleaning (or gardening). Energy low because watching grands (andreia and natasha) Trying to walk during day- up/down street. Eyes:no dry eyes; No blurry vision. Cataract - no change - in one eye (OS)- early. Early macular degeneration (Dr. Magallon). harder to thread needles, more light, and magnifier. Taking vitamins. ($8 at [facility] vs. $36). Neck:no difficulty swallowing; no masses Heart:no rapid heart rate; no palpitations; no chest pain; no tightness or pressure; EKG- reportedly normal. Sweats in garden. GI:no constipation; no diarrhea (occ.); Still on probiotics and fiber (metamucil- since d/c for tics). Neurological:no tremor; no insomnia (trouble falling asleep. Trazodone but 1/2 pill.(1 pill too groggy).melatonin- 9 mg (up from 6; was 12). Big issue is knees- OTC topical. Wakes around 3AM. If bad, takes Aleve. );anxiety(occasional at night- fidgety.); In general sleeps well with CPAP - knees wake her up at 3AM. Wakes up from arthritis sx. Restless leg syndrome bothers her on occasion- ativan prn. Comes for few days, then gone. Ongoing (02/07): Asked PCP for lorazepam and diazepam- told she would only get one (got lorazepam). Benadryl at HS- no flushes in early AM.Notes:-HYPERLIPIDEMIA: On Zetia. On Slo-niacin (OTC) 1000 mg at HS (sometimes regular niacin if it's cheaper). Had some flushing with niacin- able to tolerate better with benadryl at HS.08/07: Has been using CholestOff (plant sterols). Also using Vascepa (but only 1 g BID- can't tolerate more). OFF STATINS- pravachol (30 mg- 10 AM and 20PM).Repatha- had severe GI s/e (diarrhea- couldn't leave the house) Most recent (off statin):02/07: 267/185/47/183;.: 140-362-26776-59-0389/22: 241/254/44/31110/21: 204/210//21: 630-388-85-179. on niacin/zetia. Suggest she look into cost of PCSK-9i.08/06: 243/320 (was 230) /47 (was 50) /132 (was 145)5/20.................................. ...234/280 /46 /43695/19................................. ..220/207 (was 289)/50 (was 48)/129 (was 117)10/2018: ..............................224/303 (was 254) /46 (was 55) /117 (was 158)Before was .........................297/297 (201)/56/182 (was 139 on statin)Before was .........................205/216 (was 269)/48 (was 55)/114 (was 97)Before was ........................194/174 (was 318)/52/107 (was 93)Before was ........................177/216/40/94 (10/2016)Before was.........................208/231/47/115 (03/2016)Before was .......................197/180/53/108 (10/2015) LDL was 99 in 08/01;Before was .......................206/168/56/138 (04/2015)Before was .......................188/130/51/120;Prev iously:..................LDL = 112 (07/03)201/163/53/127; was 196/139/50/129Lipids from 09/11/12- ....194/142/52/133. OLD TSH: was 1.88 (05/06); was 2.54 (11/04); was 2.84 (05/05); was 1.27 (11/03); was 1.21 (04/04); was 0.6 (11/02)- was 0.7 (08/02)_ was 0.9 06/04)_ was 2.00 (04/03); David Green MD [address] [place] [address], [place], [phone], [facility] 22:12:58 2022 text/h tml DiabetesReported bypatient.Labs:last Hemoglobin A1C: (5.5 (08/08); was 5.6 (05/09) was 5.7 (02/07 and 11/07) was 5.6 (08/07); was 5.7 (04/08); was 5.8 (02/06); was 5.7 (08/06); was 5.8 (04/07); was 6% (10/05)); microalbumin/creatinine ratio: 2022 normal; serum creatinine: normal; LIPIDS: See below. Diabetes Medications:metformin (Mostly 1000 (500mg 2 tabs) x bid. Was 750x1.5 in AM and 750 in PM.); pioglitazone (30mg); No Trulicity- too costly. Renal/HTN Medications:atenalol Lipid Medications:niacin (1000 mg at HS. Takes ASA before- no flushing.); fish oil (vascepa- Mostly 1 pill daily- thinks might be causing diarrhea. Was two BID gave pain in legs (thighs and post calves). Stopped and s/e went away. 1 bid is OK.); Zetia. CholestOff- Only taking 1 tab BID. tolerating OK but worried about diarrhea. Repatha gave her IBS. Other Medications:gabapentin (600mg at night (08/08). also one prn.) Associated Symptoms:no polyuria (No change.); no nocturia; no burning or discomfort with urination (around hol2021. Vagifem.); no foul odor or discharge; no polydypsia (Some dry mouth. CPAP. Or meds.);blurred vision(Told macular degeneration gone after taking vitamins. (Martinez- due 09/08).); no weight gain; no weight loss; Weight: Holding (since 08/07) around 290 (08/07); was 280 at end of holiday (2019)- Says she eats better when with kids - makes healthier meals. Refers to eating poorly when alone. Had lost 20# during 2020 after decreasing gabapentin in half. Using biotene for dry mouth (attributes to CPAP). To bed at [place]. Having less UTIs on estrogen Vagisil. ( pill on a stick ) BIS. 08/08: Had UTI recently- attributes to some diarrhea. Cardiac / Eye / Podiatric / Renal / Vascular Symptomsno retinopathy (2021); no kidney disease; Cath in 2002. Hypoglycemia Symptomsfrequency of hypoglycemic episodesinfrequently; Occ if misses lunch. Notices around 5PM. [place] weak. Usually eats apple on way to gym to help avoid.Notes:T2DM: with BG x 2 over 126. BG was up to 131 (10/05) and 133 (05/06);Not checking BG. LIPIDS: See under THYROID sectionLess diarrhea since Welchol.MEDS: niacin and zetia and cholestoff (bid) and welchol (bid).Started back no fish oil (08/08) Peptobismol often helps but taking at early sx- suggest try and take earlier. SLEEP APNEA: Using CPAP machine. NAFLD: Hx of fatty liver in 2020: Echogenic liver likely representing hepatic steatosis. No suspicious lesion. Cholelithiasis without evidence of acute cholecystitis.Results similar to 05/06.Stable appearance of markedly echogenic liver likely representing severe hepatic steatosis.She hasn't wanted to do follow-up. Reviewed option of fibroscan elastography which would assist in providing staging. Sees [facility] didn't have fibroscan08/08: Agrees to yearly u/s or fibroscan. Last study was 03/09. From past:Up around 10. HS is 11-12 (reads and then asleep).BKFST: cereal, OJ, coffee, fruit, bread. oatmeal/eggs.LUNCH: Doesn't usually have.Snacks (4PM)- milk and something else.Dinner: not big meal.02/07: cost is an issue. In past, have pointed out idea of making meal and freezing leftovers but she seems sad/depressed about being alone.Talks about not seeing anyone on walks (or they cross over street during pandemic). OLDER LABS:A1c was 6% (10/05); was 6.2% (05/06; was 11/04); was 6%- has been slowly increasing. Was 5.7%. was 6%; was 5.6%. ThyroidReported bypatient.Previous Evaluation:TSH: (2.24 (08/08) was 2.75 (05/09) was 3.47 (02/07); was 2.26 (11/07) was 4.6 (08/07); was 1.84 (04/08); was 5.59 (07/28); was 2.90 (04/07); was 1.74 (10/05); ); free T4: (1.16 (08/08): was 1.12 (05/09) was 1.01 (02/07); was 1.17 (11/07) was 1.26 (08/04) was 1.15 (05/05); was 1.11 (11/03); was 1.19 (04/04); was 1.24 (11/02)-) Treatment:generic, dose: 150 mcg (daily;); Takes at HS or sometimes in middle of night. Sometimes has milk and not sure of timing relative to thyroid. Constitutional:no cold intolerance; no heat intolerance (Chronic with occ hot flashes); no weight loss; no weight gain; Niacin (1000 at HS)- baby ASA. Still gets sweats (and flushing) when being active with house cleaning (or gardening). Energy low because watching grands (andreia and natasha) Eyes:no dry eyes; No blurry vision. Cataract - no change - in one eye (OS)- early. Early macular degeneration (Dr. Magallon). harder to thread needles, more light, and magnifier. Taking vitamins. ($8 at [employer] vs. $36). Neck:no difficulty swallowing; no masses Heart:no rapid heart rate; no palpitations; no chest pain; no tightness or pressure; EKG- reportedly normal. Sweats/hot with gardening or housecleaning. GI:no constipation; no diarrhea (occ.); Welchol helping Neurological:no tremor; no insomnia (Not bad. Uses Nyquil and tries to avoid others meds (Trazodone- 1/2 pill) or melatonin or benadryl);anxiety(occasional at night- fidgety.); In general sleeps well with CPAP - knees wake her up at 3AM. Wakes up from arthritis sx. Restless leg syndrome bothers her on occasion- ativan prn. Comes for few days, then gone. Ongoing (02/07): Asked PCP for lorazepam and diazepam- told she would only get one (got lorazepam).Notes:-HYPERLIPIDEMIA:LIPIDS: Slo-niacin (1000 mg at HS) and zetia and cholestoff (bid) and welchol (bid).Started back on fish oil (08/08)- Vascepa (1 g BID- can't tolerate more). OFF STATINS- pravachol (30 mg- 10 AM and 20PM).Repatha- had severe GI s/e (diarrhea- couldn't leave the house)Discussed option of Bempedoic acid (per [place]). LAB RESULTS (LIPIDS):08/08: 242/254/44/59593: 530-645-11-149;02/07: 267/185/47/183;.: [id number]/22: 241/254/44/99220/: 204/210/: 834-276-23-179. on niacin/zetia. Suggest she look into cost of PCSK-9i.08/06: 243/320 (was 230) /47 (was 50) /132 (was 145)10/05.................................. ...234/280 /46 /53180/19................................. ..220/207 (was 289)/50 (was 48)/129 (was 117)10/2018: ..............................224/303 (was 254) /46 (was 55) /117 (was 158)Before was .........................297/297 (201)/56/182 (was 139 on statin)Before was .........................205/216 (was 269)/48 (was 55)/114 (was 97)Before was ........................194/174 (was 318)/52/107 (was 93)Before was ........................177/216/40/94 (10/2016)Before was.........................208/231/47/115 (03/2016)Before was .......................197/180/53/108 (10/2015) LDL was 99 in 08/01;Before was .......................206/168/56/138 (04/2015)Before was .......................188/130/51/120;Prev iously:..................LDL = 112 (07/03)201/163/53/127; was 196/139/50/129Lipids from 09/11/12- ....194/142/52/133. OLD TSH: was 1.88 (05/06); was 2.54 (11/04); was 2.84 (05/05); was 1.27 (11/03); was 1.21 (04/04); was 0.6 (11/02)- was 0.7 (08/02)_ was 0.9 06/04)_ was 2.00 (04/03); PCP is Mila. Follow-Up: mixed hyperlipidemiaFollow-Up: morbid obesityFollow-Up: benign hypertensionFollow-Up: hypothyroidismFollow-Up: abnormal glucose levelDiabetes Type IILV on 02/07Last labs on 08/08 A1C -5.5Labs cuedLast bone density on 07/21/2019PT had Ultrasound of liver on 03/09Pt does not check blood sugars F/U for hypothyroid, hyperlipidemia, DM (2019) with known elevated CPK levels independent of statin tx. SOCIAL:Goes to [place] regularly-Exercise- usually water aerobics BIS.02/06: Besides helping with kids, re-did deck (scraped, repaired) and also shed and cabinets and repainted chairs/tables. Caulking in bath. Fixed windows too. Drinks 1/2 gallon and 2 scoops of powdered gatorade and mixes with tonic water). Some exercises for arthritis.02/07: In [place] - [place] commented on healthy foods for dinner. Gardening for activity. Uses gatorade (with sugar)- powder only comes with sugar- can't afford bottles w/o sugar.08/08: to gym for water aerobics. MYALGIAS WITH/WITHOUT ELEVATED CK LEVELS:Has had chronic pain (mostly joint, not muscle)- has not correlated with elevated CK levels (worth noting that CK up even when not on statin meds). 05/05: PCP Mila did CK and it was >900. Off statin and CK down to 500s.Had injection in buttocks (05/05 and before in 07/2015). Didn't help much. 2019: Muscles slowly recovering after stopped pravastatin. Better up to top of thighs (still hurt when walks). Physiatry for right hip pain. Shoulders too. Has banisters on both sides of stairs and bath. Has been unable to go down stairs frontwards while carrying big bundle (afraid of balance).- Continues to go down backwards if carrying something big/bulky. -MUSCULOSKELETAL:Overall, Neurontin has made the most difference in m/s sx. But decreased dose due to weight gain effects.Gabapentin - dose is 600 daily. Has been 600--900. was 1200. Multiple issues not clearly related to statin use.Multiple courses of steroid injections in back (L4-L5; didn't do much good).After foot injection, also OK (09/12/15)08/08: No recent steroid injections. MUSCLE CRAMPS- Less with tonic water (1/2 gallon mixed with scoop of gatorade)Also restless legs- takes ativan and helps- also sleeps better.She feels ativan helps with restless legs and valium helps more with leg pain.PCP has told her she can only have one Rx for benzos.Occ 1/2 ativan- helps when pain from arthritis is too severe.- She's using ativan sparingly.08/08: Feels bananas help some. SHOULDER SX (chronic)- on/off since : No major changes.08/07: Has traction device for cervical spine- told of herniation.Mostly attributes to disc. (in traction, feels much better but none over a year).Icy/Hot better than Salon-pas for knees.Reviewed again CBD- encouraged her to try topical to see if it helps. Ultimately, may be an option to see about medical MJ. Discussed trying to avoid high dose continuous NSAIDS due to renal problems.2022- traction used prn. SLEEP:Chronically needs something to help sleep (tylenol/Ibuprofen PM)Trial of Topamax ([facility] customs brokerage agent in [facility]) made her out to lunch - stopped.08/07: melatonin. Aleve PM. occ trazodone (1/2 pill).Dx of herniation of C5-6 and C6-7- uses traction at home.Saw Phong Smith)- for CPAP. BONE HEALTH:BMD in 08/05 ([facility]):Region............................ .......BMD........T-score.....Classificati on AP Spine (L1-L4)..............1.141............0.9. ........NormalFemoral Neck (Right)....0.826............-0.2.......Nor malTotal Hip (Right)..............1.065............1.0. .......Normal 02/07: Sweats while doing yard work. Discussed differential which includes angina equivalent or hypoglycemia as well as option of dehydration. Pt. drinks gatorade (with sugar) and rests and feels better. Suggests she could have cardiac w/u and/or test BG. ROS:No f/c. recent rhinitis.H/A: No severe.No COVID.Not dizzy with standing in AM.No n/v. No abdominal pain. Restless leg sx- comments that no one will give her lorazepam. Eczema intermittent as before (maybe something under breast- says it's not fungus).No bruises or rashes or itching. David Green MD [address] [place] [address], [place], [phone] , [facility] 3 15:45:26 2022 text/h tml DiabetesReported bypatient.Labs:last Hemoglobin A1C: (5.6 (02/08 and 11/08) was 5.5 (08/08); was 5.6 (05/09) was 5.7 (02/07 and 11/07) was 5.6 (08/07); was 5.7 (04/08); was 5.8 (02/06); was 5.7 (08/06); was 5.8 (04/07); was 6% (10/05)); microalbumin/creatinine ratio: 2022 normal; serum creatinine: normal; LIPIDS: See below. Diabetes Medications:metformin (Mostly 1000 (500mg 2 tabs) x bid. Was 750x1.5 in AM and 750 in PM.); pioglitazone (30mg); No Trulicity- too costly. Renal/HTN Medications:atenalol Lipid Medications:niacin (1000 mg at HS. Takes ASA before- no flushing.); cholestyramine (Welchol 1 BID. (4pm)); fish oil ((not vascepa)- Mostly 1 pill daily- vascepa causes diarrhea.); Zetia and also CholestOff- Only taking 1 tab BID. Tolerating OK. Repatha gave her IBS. Other Medications:gabapentin (600mg at night (08/08). also one prn.) Associated Symptoms:no polyuria (No change.); no nocturia; no burning or discomfort with urination (one UTI since last visit.); no foul odor or discharge; no polydypsia (Some dry mouth. CPAP.);blurred vision(Told macular degeneration gone after taking vitamins. (Canvas Cutter told [place]; ophthal is [place]). see thyroid section); no weight gain; no weight loss; Weight: Holding (since 08/07) around 290 (08/07); was 280 at end of holidays (2019)- Says she eats better when with kids - makes healthier meals. Refers to eating poorly when alone. Had lost 20# during 2020 after decreasing gabapentin in half. Using biotene for dry mouth (attributes to CPAP). To bed at [place]. Having less UTIs on estrogen Vagisil. ( pill on a stick ) BIS. 08/08: Had UTI recently- attributes to some diarrhea. Cardiac / Eye / Podiatric / Renal / Vascular Symptomsno retinopathy (2023); no kidney disease; Cath in 2002. Hypoglycemia Symptomsfrequency of hypoglycemic episodesinfrequently (occ if working hard outside. weekly in summer.); [place] weak. Usually eats apple on way to gym to help avoid.Notes:T2DM: with BG x 2 over 126. BG was up to 131 (10/05) and 133 (05/06);Not checking BG. LIPIDS: See under THYROID sectionMEDS:04/10: lengthy discussion about her schedule.Has had s/e on multiple medications (usually GI). Better lately Metformin when wakes. psych med. atenolol.Bkfst is around noon. Fish oil then.Welchol at 4PM and 4 hrs post-HS.Cholestoff at supper (7-8PM).Around HS (often 9-10PM): Metformin/zetia/coq10/niacin/gabapentin/me latonin (thyroid if not having milk then). NSAID-PM. Also says she takes niacin and thyroid with Eye med (vitamin) at HS.On current- bowels are OK.Pepto-bismol often helps but taking at early sx- suggest try and take earlier.doesn't want to check BG- I guess I don't accept that I have diabetes . the stigma . SLEEP APNEA: Using CPAP machine.Chronically needs something to help sleep (trazodone/melatonin/benadryl)Trial of Topamax ([facility] customs brokerage agent in [facility]) made her out to lunch - stopped. NAFLD: Hx of fatty liver in 2020: Echogenic liver likely representing hepatic steatosis. No suspicious lesion. Cholelithiasis without evidence of acute cholecystitis.Results similar to 05/06.Stable appearance of markedly echogenic liver likely representing severe hepatic steatosis.She hasn't wanted to do follow-up. Reviewed option of fibroscan elastography which would assist in providing staging. Sees GI. [facility] didn't have fibroscan08/08: Agrees to yearly u/s or fibroscan. Last study was 03/09.03/10: U/S no change. Ongoing issues for patient: cost.In past, have pointed out idea of making meal and freezing leftovers but she seems sad/depressed about being alone.Talks about not seeing anyone on walks (or they cross over street during pandemic). OLDER LABS:A1c was 6% (10/05); was 6.2% (05/06; was 11/04); was 6%- has been slowly increasing. Was 5.7%. was 6%; was 5.6%. ThyroidReported bypatient.Previous Evaluation:TSH: (4.99 (02/08) was 3.49 (11/08) was 2.24 (08/08) was 2.75 (05/09) was 3.47 (02/07); was 2.26 (11/07) was 4.6 (08/07); was 1.84 (04/08); was 5.59 (07/28); was 2.90 (04/07); was 1.74 (10/05); ); free T4: (1.05 (02/08) was 1.06 (11/08) was 1.16 (08/08): was 1.12 (05/09) was 1.01 (02/07); was 1.17 (11/07) was 1.26 (08/04) was 1.15 (05/05); was 1.11 (11/03); was 1.19 (04/04); was 1.24 (11/02)-) Treatment:generic, dose: 150 mcg (daily;); Takes at HS or sometimes in middle of night. tries to keep away from milk. Constitutional:no cold intolerance; no heat intolerance (Chronic with occ hot flashes); no weight loss; no weight gain; Energy low because watching grands (andreia and natasha) Eyes:Cataract - no change - in one eye (OS)- early. Early macular degeneration (Dr. Magallon). harder to thread needles, more light, and magnifier. Taking vitamins. ($8 at [employer] vs. $36). Problems with vitamin Med- sees capsule in toilet. Chews on it to release but tastes awful and had some in plastic cup- made a hole. Neck:no difficulty swallowing; no masses Heart:no rapid heart rate; no palpitations; no chest pain; no tightness or pressure; EKG- reportedly normal. GI:no constipation; no diarrhea (occ.); stable in 04/10. Neurological:no tremor; no insomnia (Not bad. (occ Trazodone- 1/2 pill) and melatonin and benadryl);anxiety(occasional at night- fidgety.); lorazepam for RLS. In general sleeps well with CPAP - knees wake her up at 3AM. 04/10: left knee hurts- no clear injury Ongoing (02/07): Asked PCP for lorazepam and diazepam- told she would only get one (got lorazepam).Notes:-HYPERLIPIDEMIA:LIPIDS: see med schedule in other section.Slo-niacin (1000 mg at HS) and zetia and cholestoff (bid) and welchol (bid).Started back on generic fish oil (one tab bid). Vascepa gave her s/e. OFF STATINS- pravachol (30 mg- 10 AM and 20PM).athsagar- had severe GI s/e (diarrhea- couldn't leave the house)Discussed option of Bempedoic acid (per [facility]). LAB RESULTS (LIPIDS):02/08: 248/255//23: 225/191//23: 242/254/44/65047/22: 483-492-56-149;02/07: 267/185/47/183;11.07: [id number]/22: 241/254/44/99502: 204/210//21: 728-187-19-179. on niacin/zetia. Suggest she look into cost of PCSK-9i.08/06: 243/320 (was 230) /47 (was 50) /132 (was 145)10/05.................................. ...234/280 /46 /72777/19................................. ..220/207 (was 289)/50 (was 48)/129 (was 117)10/2018: ..............................224/303 (was 254) /46 (was 55) /117 (was 158)Before was .........................297/297 (201)/56/182 (was 139 on statin)Before was .........................205/216 (was 269)/48 (was 55)/114 (was 97)Before was ........................194/174 (was 318)/52/107 (was 93)Before was ........................177/216/40/94 (10/2016)Before was.........................208/231/47/115 (03/2016)Before was .......................197/180/53/108 (10/2015) LDL was 99 in 08/01;Before was .......................206/168/56/138 (04/2015)Before was .......................188/130/51/120;Prev iously:..................LDL = 112 (07/03)201/163/53/127; was 196/139/50/129Lipids from 09/11/12- ....194/142/52/133. OLD TSH: was 1.88 (05/06); was 2.54 (11/04); was 2.84 (05/05); was 1.27 (11/03); was 1.21 (04/04); was 0.6 (11/02)- was 0.7 (08/02)_ was 0.9 06/04)_ was 2.00 (04/03); PCP is Mila. Mixed hyperlipidemiaMorbid obesityhypertensionHypothyroidismDiabetes Type IILV on 02/07Last labs on 08/08 A1C -5.5Labs cued - hard copy to patient.Last bone density on 07/21/2019PT had Ultrasound of liver on 03/09Pt does not check blood sugars F/U for hypothyroid, hyperlipidemia, DM (2019) with known elevated CPK levels independent of statin tx. PAST MED HX(updated)Sleep apnea (Ried at [facility])- on CPAP.FibromyalgiaPast hx of herniation of C5-6 and C6-7- uses traction at home.NAFLD-04/10: trouble with med for MD- doesn't get digested - tries to break it open in mouth and tastes awful. Some ended in plastic cup and made hole in it.Notices carpal tunnel at night. has either radial or ulnar- not usually both. 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 Used to do yoga. Pre-COVD: cruises with daughter(Chika).Ongoing: gym for water aerobics. Goes to [place] regularly- grands there.Losses of friends/family:08/06: Lost 2 friends to [place]. Grandson of good friend hung himself (age 11)- problems at home/school.04/10: recent deaths- pancreatic CA (80 y.o). 48 y.o. esophageal CA (smoker). 53 y.o. nephew in sleep. Big goal for pt- Motivated to see Andreia into college (2029) 02/06: Besides helping with kids, re-did deck (scraped, repaired) and also shed and cabinets and repainted chairs/tables. Caulking in bath. Fixed windows too. Drinks 1/2 gallon and 2 scoops of powdered gatorade and mixes with tonic water). Some exercises for arthritis.02/07: In [place] - [place] commented on healthy foods for dinner. Gardening for activity. Uses gatorade (with sugar)- powder only comes with sugar- can't afford bottles w/o sugar.04/10: active- gardening, etc. FAMILY Hx(updated)Son- more communicative.Brother (80 in 2022)- had stent 2 years ago. heavier than pt.Younger brother- not much contact. Genoveva/Patricia (daughter) ok. 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 doing well (04/10)Andreia (2010)- Seen at [facility] at [facility]. 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 1 cm. but concern if over 7 mm. left streak - left temporal (left). some rojas matter abnormalities noted.04/10: 7th grade- hard at first but doing better (math/science zero's -> 60s). On swim team.(their half sister has microcephaly (not the ones with her at video visit 2019)) MYALGIAS WITH/WITHOUT ELEVATED CK LEVELS:Has had chronic pain (mostly joint, not muscle)- has not correlated with elevated CK levels (worth noting that CK up even when not on statin meds). 05/05: PCP Mila did CK and it was >900. Off statin and CK down to 500s.Injection in buttocks (05/05 and before in 07/2015). Didn't help much. 2019: Muscles slowly recovering after stopped pravastatin. Better up to top of thighs (still hurt when walks). Physiatry for right hip pain. Shoulders too. Has banisters on both sides of stairs and bath. Carrying laundry, cannot go down stairs (afraid of balance).- Continues to go down backwards if carrying something big/bulky. -MUSCULOSKELETAL:Overall, Neurontin has made the most difference in m/s sx. But decreased dose due to weight gain effects.Gabapentin: 300 during day prn. Takes 600 at night. Has been 600--900. was 1200. Multiple issues not clearly related to statin use.Multiple courses of steroid injections in back (L4-L5; didn't do much good).After foot injection, also OK (09/12/15) MUSCLE CRAMPS- Less with tonic water (1/2 gallon mixed with scoop of gatorade)Also restless legs- takes ativan and helps- also sleeps better.She feels ativan helps with restless legs and valium helps more with leg pain.*PCP has told her she can only have one Rx for benzos. *Occ / ativan- helps when pain from arthritis is too severe. She's using ativan sparingly.04/10: Cramps worse lately. Most nights. SHOULDER SX (chronic)- on/off since x of herniation of C5-6 and C6-7- uses traction at home.Have discussed option of CBD- encouraged her to try topical to see if it helps. Ultimately, may be an option to see about medical MJ. Discussed trying to avoid high dose continuous NSAIDS due to renal problems.2022- traction used prn. Topical voltaren helping BONE HEALTH:BMD in 08/05 ([facility]):Region............................ .......BMD........T-score.....Classificati on AP Spine (L1-L4)..............1.141............0.9. ........NormalFemoral Neck (Right)....0.826............-0.2.......Nor malTotal Hip (Right)..............1.065............1.0. .......Normal 02/07: Sweats while doing yard work.04/10: Encourage checking BG to see if low. In past, discussed differential of angina equivalent or hypoglycemia as well as option of dehydration.Pt. drinks gatorade (with sugar) and rests and feels better. Suggests she could have cardiac w/u and/or test BG. ROS:No f/c.H/A: No severe.No COVID.Not dizzy with standing in AM.No n/v. No abdominal pain. Restless leg sx- comments that no one will give her lorazepam. Eczema intermittent as before (maybe something under breast- says it's not fungus). David Green MD [address] [place] [address], [facility] [place], [phone], [facility] 3 15:00:17 2023 text/h tml DiabetesReported bypatient.Labs:last Hemoglobin A1C: (5.8 (08/09) was 5.6 (05/10 and 02/08 and 11/08) was 5.5 (08/08); was 5.6 (05/09) was 5.7 (02/07 and 11/07) was 5.6 (08/07); was 5.7 (04/08); was 5.8 (02/06); was 5.7 (08/06); was 5.8 (04/07); was 6% (10/05)); microalbumin/creatinine ratio: 05/10 normal; serum creatinine: normal; 10/09: Discussed idea of CKD3a based on GFR between 45-59 LIPIDS: See below. Diabetes Medications:metformin (Mostly 1000 (500mg 2 tabs) x bid. Was 750x1.5 in AM and 750 in PM.); pioglitazone (30mg); No Trulicity- too costly. Renal/HTN Medications:atenalol Lipid Medications:niacin (1000 mg at HS. Takes ASA before- no flushing.); cholestyramine (Welchol 1 BID. (4pm)); fish oil (generic, not vascepa- Mostly 1 pill daily- vascepa causes diarrhea.); Zetia and also CholestOff- Only taking 1 tab BID. Tolerating OK. Repatha gave her IBS. Other Medications:gabapentin (600mg at night (3/23). also one prn.) Associated Symptoms:no polyuria (No change.); no nocturia (gets up for pain, then to BR. Off NSAIDs.); no burning or discomfort with urination (one UTI since last visit.); no foul odor or discharge; no polydypsia (still on CPAP.);blurred vision(Told macular degeneration gone after taking vitamins. (Canvas Cutter told [place]; ophthal is [place]). see thyroid section); no weight gain; no weight loss; WEIGHT: 280 (10/09; blames on gabapentin); was holding (since 08/07) around 290 (08/07); was 280 at end of holidays (2019)- Says she eats better when with kids - makes healthier meals. Refers to eating poorly when alone. Had lost 20# during 2020 after decreasing gabapentin in half. Using biotene for dry mouth (attributes to CPAP). To bed at [place]. Having less UTIs on estrogen Vagisil. ( pill on a stick ) BIS. 08/08: Had UTI recently- attributes to some diarrhea. Cardiac / Eye / Podiatric / Renal / Vascular Symptomsno retinopathy (10/09;); no kidney disease; Cath in 2002. Hypoglycemia Symptomsfrequency of hypoglycemic episodesinfrequently (occ if working hard outside.); [place] weak. Usually eats apple on way to gym to help avoid.Notes:T2DM: with BG x 2 over 126. BG was up to 131 (10/05) and 133 (05/06);Not checking BG. LIPIDS: See labs under THYROID section MEDS (GENERAL):04/10: lengthy discussion about her schedule.10/09: Still has trouble with vitamins and thyroid and resins. Metformin when wakes. psych med. atenolol.Bkfst is around noon. Fish oil then.Welchol at 4PM and 4 hrs post-HS.Cholestoff at supper (7-8PM).Around HS (often 9-10PM): Metformin/zetia/coq10/niacin/gabapentin/me latonin (thyroid if not having milk then). NSAID-PM. Also says she takes niacin and thyroid with Eye med (vitamin) at HS.On current- bowels are OK.Pepto-bismol often helps but taking at early sx- suggest try and take earlier.doesn't want to check BG- I guess I don't accept that I have diabetes . the stigma . SLEEP APNEA: Using CPAP machine.Chronically needs something to help sleep (trazodone/melatonin/benadryl)Trial of Topamax ([facility] brokerage agent in [facility]) made her out to lunch - stopped. NAFLD: Hx of fatty liver in 2020: Echogenic liver likely representing hepatic steatosis. No suspicious lesion. Cholelithiasis without evidence of acute cholecystitis.Results similar to 05/06.Stable appearance of markedly echogenic liver likely representing severe hepatic steatosis.She hasn't wanted to do follow-up. Reviewed option of fibroscan elastography which would assist in providing staging. Sees GI. [facility]a [facility] didn't have fibroscan08/08: Agrees to yearly u/s or fibroscan. Last study was 03/09.03/10: U/S no change.10/09: Will likely update imaging in fall. Ongoing issues for patient: cost.In past, have pointed out idea of making meal and freezing leftovers but she seems sad/depressed about being alone.Talks about not seeing anyone on walks (or they cross over street during pandemic). OLDER LABS:A1c was 6% (10/05); was 6.2% (05/06; was 11/04); was 6%- has been slowly increasing. Was 5.7%. was 6%; was 5.6%. ThyroidReported bypatient.Previous Evaluation:TSH: (1.92 (08/09) was 5.08 (05/10) was 4.99 (02/08) was 3.49 (11/08) was 2.24 (08/08) was 2.75 (05/09) was 3.47 (02/07); was 2.26 (11/07) was 4.6 (08/07); was 1.84 (04/08); was 5.59 (07/28); was 2.90 (04/07); was 1.74 (10/05); ); free T4: (1.20 (08/09) was 1.08 (05/10) was 1.05 (02/08) was 1.06 (11/08) was 1.16 (08/08): was 1.12 (05/09) was 1.01 (02/07); was 1.17 (11/07) was 1.26 (08/04) was 1.15 (05/05); was 1.11 (11/03); was 1.19 (04/04); was 1.24 (11/02)-) Treatment:generic, dose: 150 mcg (daily;); Takes at HS or sometimes in middle of night. Tries to keep away from milk (2 hours). Constitutional:no cold intolerance; no heat intolerance (Sometimes.); no weight loss; no weight gain; Energy low because watching grands (Andreia-12 and Natasha- 18; [facility] - 2023) Eyes:Cataract - no change - in one eye (OS)- early. Early macular degeneration (Dr. Magallon). harder to thread needles, more light, and magnifier. Taking vitamins. ($8 at [employer] vs. $36). Problems with vitamin Med- sees capsule in toilet. Chews on it to release but tastes awful and had some in plastic cup- made a hole. Neck:no difficulty swallowing; no masses Heart:no rapid heart rate; no palpitations; no chest pain; no tightness or pressure; EKG- reportedly normal. GI:no constipation; no diarrhea (occ.); intermittent in 10/09. Neurological:no tremor; no insomnia (Not bad. (occ Trazodone- 1/2 pill) and melatonin and benadryl);anxiety(occasional at night- fidgety.); Lorazepam for RLS. 1/2 pill since no NSAIDs but still trouble falling asleep. In general sleeps well with CPAP - knees wake her up at 3AM. 04/10: left knee hurts- no clear injury Ongoing (02/07): Asked PCP for lorazepam and diazepam- told she would only get one (got lorazepam).Notes:-HYPERLIPIDEMIA:LIPIDS: see med schedule in other section.Slo-niacin (1000 mg at HS) and zetia and cholestoff (bid) and welchol (bid).Started back on generic fish oil (one tab bid). Vascepa gave her s/e. OFF STATINS- pravachol (30 mg- 10 AM and 20PM).Annamaria- had severe GI s/e (diarrhea- couldn't leave the house)Discussed option of Bempedoic acid (per NEJM). LAB RESULTS (LIPIDS):08/09: 236/151/54/182;05/10; 229/203/46/142;02/08: 248/255/: 225/191//23: 242/254/44/76993: [phone];02/07: 267/185/47/183;.: [phone]/22: 241/254/44/94792: 204/210//21: [phone]. on niacin/zetia. Suggest she look into cost of PCSK-9i.08/06: 243/320 (was 230) /47 (was 50) /132 (was 145)10/05.................................. ...234/280 /46 /85875/19................................. ..220/207 (was 289)/50 (was 48)/129 (was 117)10/2018: ..............................224/303 (was 254) /46 (was 55) /117 (was 158)Before was .........................297/297 (201)/56/182 (was 139 on statin)Before was .........................205/216 (was 269)/48 (was 55)/114 (was 97)Before was ........................194/174 (was 318)/52/107 (was 93)Before was ........................177/216/40/94 (10/2016)Before was.........................208/231/47/115 (03/2016)Before was .......................197/180/53/108 (10/2015) LDL was 99 in 08/01;Before was .......................206/168/56/138 (04/2015)Before was .......................188/130/51/120;Prev iously:..................LDL = 112 (07/03)201/163/53/127; was 196/139/50/129Lipids from 09/11/12- ....194/142/52/133. OLD TSH: was 1.88 (05/06); was 2.54 (11/04); was 2.84 (05/05); was 1.27 (11/03); was 1.21 (04/04); was 0.6 (11/02)- was 0.7 (08/02)_ was 0.9 06/04)_ was 2.00 (04/03); PCP is Rosario Stratton Surgeon: Love Follow-Up: hypothyroidismFollow-Up: benign hypertensionFollow-Up: morbid obesityFollow-Up: mixed hyperlipidemiaFollow-Up: glucose level outside reference rangeDiabetes Type IILV on 04/10Last labs on 08/09 A1C -5.8Labs orders in place until 04/11Last bone density on 07/21/2019-bmcPT had Ultrasound of liver on 02/08Pt does not check blood sugars F/U for hypothyroid, hyperlipidemia, DM (2019) with known elevated CPK levels independent of statin tx. PAST MED HX(updated)Sleep apnea ([facility] at [facility])- on CPAP.FibromyalgiaPast hx of herniation of C5-6 and C6-7- uses traction at home.NAFLD-04/10: trouble with med for MD- doesn't get digested - tries to break it open in mouth and tastes awful. Some ended in plastic cup and made hole in it.Notices carpal tunnel at night. has either radial or ulnar- not usually both. 10/09: Carpal tunnel injection- helped. Thumb tendonitis- helped. 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 Used to do yoga. Pre-COVD: cruises with daughter(Chika).Ongoing: gym for water aerobics. Goes to [place] regularly- grands there.Losses of friends/family:08/06: Lost 2 friends to COVID. Grandson of good friend hung himself (age 11)- problems at home/school.04/10: recent deaths- pancreatic CA (80 y.o). 48 y.o. esophageal CA (smoker). 53 y.o. nephew in sleep. Big goal for pt- Motivated to see Andreia into college (2029) 02/06: Besides helping with kids, re-did deck (scraped, repaired) and also shed and cabinets and repainted chairs/tables. Caulking in bath. Fixed windows too. Drinks 1/2 gallon and 2 scoops of powdered gatorade and mixes with tonic water). Some exercises for arthritis.02/07: In [place] - Genoveva commented on healthy foods for dinner. Gardening for activity. Uses gatorade (with sugar)- powder only comes with sugar- can't afford bottles w/o sugar.04/10: active- gardening, etc. 10/09: spring cleaning to get rid of mice. Grands have come to visit. FAMILY Hx(updated)Son- more communicative.Brother (80 in 2022)- had stent 2 years ago. heavier than pt.Younger brother- not much contact. Genoveva/Patricia (daughter) ok. 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 doing well (04/10). Not as much ester. Andreia (2010)- Seen at Pedi Neuro at [facility]. 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 1 cm. but concern if over 7 mm. left streak - left temporal (left). some rojas matter abnormalities noted.04/10: 7th grade- hard at first but doing better (math/science zero's -> 60s). On swim team.(their half sister has microcephaly (not the ones with her at video visit 2019))10/09: Problems not turning in papers. MYALGIAS WITH/WITHOUT ELEVATED CK LEVELS:Has had chronic pain (mostly joint, not muscle)- has not correlated with elevated CK levels (worth noting that CK up even when not on statin meds). 05/05: PCP Mila did CK and it was >900. Off statin and CK down to 500s.Injection in buttocks (05/05 and before in 07/2015). Didn't help much. 2019: Muscles slowly recovering after stopped pravastatin. Better up to top of thighs (still hurt when walks). Physiatry for right hip pain. Shoulders too. Has banisters on both sides of stairs and bath. Carrying laundry, cannot go down stairs (afraid of balance).- Continues to go down backwards if carrying something big/bulky. -MUSCULOSKELETAL:Overall, Neurontin has made the most difference in m/s sx. But decreased dose due to weight gain effects.Gabapentin: 300 during day prn. Takes 600 at night. Has been 600--900. was 1200. Multiple issues not clearly related to statin use.Multiple courses of steroid injections in back (L4-L5; didn't do much good).After foot injection, also OK (09/12/15)10/09: Recent hand/thumb injections. helped. MUSCLE CRAMPS- Less with tonic water (1/2 gallon mixed with scoop of gatorade)Also restless legs- takes ativan and helps- also sleeps better.She feels ativan helps with restless legs and valium helps more with leg pain.*PCP has told her she can only have one Rx for benzos. *Occ 1/2 ativan- helps when pain from arthritis is too severe. She's using ativan sparingly.04/10: Cramps worse lately. Most nights.10/09: Ongoing. SHOULDER SX (chronic)- on/off since x of herniation of C5-6 and C6-7- uses traction at home.Have discussed option of CBD- encouraged her to try topical to see if it helps. Ultimately, may be an option to see about medical MJ. Discussed trying to avoid high dose continuous NSAIDS due to renal problems.2022- traction used prn. Topical voltaren helping BONE HEALTH:BMD in 08/05 ([facility]):Region............................ .......BMD........T-score.....Classificati on AP Spine (L1-L4)..............1.141............0.9. ........NormalFemoral Neck (Right)....0.826............-0.2.......Nor malTotal Hip (Right)..............1.065............1.0. .......Normal 02/07: Sweats while doing yard work.04/10: Encourage checking BG to see if low. In past, discussed differential of angina equivalent or hypoglycemia as well as option of dehydration.Pt. drinks gatorade (with sugar) and rests and feels better. Suggests she could have cardiac w/u and/or test BG.10/09: Still gets sweats. Reviewed concerns about possible link to low BG or CAD. Concerned about CBC with MCV of 100.3 (02/08). Heme friend said to check q 6m.- Pt. advised to discuss PCP. ROS:No f/c.H/A: No severe.No COVID.Not dizzy with standing in AM.No n/v. No abdominal pain. Welchol gives her pain - takes with TUMS. Abd. hurts- makes it hungry. Restless leg sx- comments that no one will give her lorazepam.Eczema intermittent as before (maybe something under breast- says it's not fungus). David Green MD [address] [place] [address], [place], [phone] , [facility] 19:27:05 2023 text/h tml DiabetesReported bypatient.Labs:last Hemoglobin A1C: (5.8 (02/09) was 5.7 (11/09) was 5.8 (08/09) was 5.6 (05/10 and 02/08 and 11/08) was 5.5 (08/08); was 5.6 (05/09) was 5.7 (02/07 and 11/07) was 5.6 (08/07); was 5.7 (04/08); was 5.8 (02/06); was 5.7 (08/06); was 5.8 (04/07); was 6% (10/05)); microalbumin/creatinine ratio: 2023 normal; serum creatinine: normal; 10/09: Discussed idea of CKD3a based on GFR between 45-59 LIPIDS: See below. Diabetes Medications:Biguanides: (1000 (bid). Was 750x1.5 in AM and 750 in PM.); Long-acting insulins: (30mg); Other: Pioglitazone (Actos); No Trulicity- too costly. Renal/Hypertension (HTN) Medsatenolol Lipid Medications:Fibrates: (Welchol 1 BID. (04/11- but will be stopping- cost).); Resins: Ezetimibe; [place]-3 Fatty Acids: (generic- has been off but will restart after welchol runs out.); Takes CholestOff- Only taking 1 tab BID. Tolerating OK. Repatha gave her IBS. Other Medications:ASA Associated Symptoms:no polyuria (Few hours.); no nocturia (2x mostly when gets up for eye meds or T4.); no burning or discomfort with urination (none since on estradiol); no foul odor or discharge; no polydypsia;blurred vision(Told macular degeneration gone after taking vitamins. (Canvas Cutter told OK; ophthal is Martinez). see thyroid section); WEIGHT (home): 280's (04/11); was 280 (10/09; blames on gabapentin); was holding (since 08/07) around 290 (08/07); was 280 at end of holidays (2019)- Says she eats better when with kids - makes healthier meals. Refers to eating poorly when alone. Summer 2023: decreased gabapentin and lost 10# but had more pain. Had lost 20# during 2020 after decreasing gabapentin in half. Using biotene for dry mouth (attributes to CPAP). To bed at [place]. Having less UTIs on estrogen Vagisil. ( pill on a stick ) BIS. 08/08: Had UTI recently- attributes to some diarrhea. Cardiac / Eye / Podiatric / Renal / Vascular Symptomsno retinopathy (10/09;); no kidney disease; Cath in 2002. Hypoglycemia Symptomsfrequency of hypoglycemic episodesinfrequently (Occ if working hard outside.); [place] weak. Usually eats apple on way to gym to help avoid. Will have lemonade/gatorade with her when gets very sweaty in yard. 1/2 gallon over course of day.Notes:Tired at end of day- too tired to cook. doesn't eat well. doesn't like whole grains- too much fiber.T2DM: with BG x 2 over 126. BG was up to 131 (10/05) and 133 (05/06);Not checking BG. LIPIDS: See labs under THYROID section SLEEP APNEA: Using CPAP machine.Chronically needs something to help sleep (trazodone/melatonin/benadryl)Trial of Topamax ([place] customs brokerage agent in [facility]) made her out to lunch - stopped. NAFLD: Hx of fatty liver in 2020: Echogenic liver likely representing hepatic steatosis. No suspicious lesion. Cholelithiasis without evidence of acute cholecystitis.Results similar to 05/06.Stable appearance of markedly echogenic liver likely representing severe hepatic steatosis.She hasn't wanted to do follow-up. Reviewed option of fibroscan elastography which would assist in providing staging. Sees GI. Marta Garcia [facility] didn't have fibroscan08/08: Agrees to yearly u/s or fibroscan. Last study was 03/09.03/10: U/S no change.10/09: Will likely update imaging in fall.04/11: Stiffness (NL=2-7)= 5.7 kPa (1.36 m/sec); was 4.8 kPa (1.26 m/sec in 02/08 and 5.7 kPa (1.3m/sec on 03/09) Ongoing issues for patient: cost.In past, have pointed out idea of making meal and freezing leftovers but she seems sad/depressed about being alone.Talks about not seeing anyone on walks (or they cross over street during pandemic). ThyroidReported bypatient.Previous Evaluation:TSH: (1.8 (02/09) was 1.59 (11/09) was 1.92 (08/09) was 5.08 (05/10) was 4.99 (02/08) was 3.49 (11/08) was 2.24 (08/08) was 2.75 (05/09) was 3.47 (02/07); was 2.26 (11/07) was 4.6 (08/07); was 1.84 (04/08); was 5.59 (07/28); was 2.90 (04/07); was 1.74 (10/05); ); free T4: (1.4 (02/09); was 1.18 (11/09) was 1.20 (08/09) was 1.08 (05/10) was 1.05 (02/08) was 1.06 (11/08) was 1.16 (08/08): was 1.12 (05/09) was 1.01 (02/07); was 1.17 (11/07) was 1.26 (08/04) was 1.15 (05/05); was 1.11 (11/03); was 1.19 (04/04); was 1.24 (11/02)-) Treatment:generic, dose: 150 mcg, frequency: (x 8/7 (04/11); was daily;); Takes at HS or sometimes in middle of night. Constitutional:no cold intolerance; no heat intolerance; Energy- not like what she used to (notices since summer). 04/11: doesn't have the energy she used to. With walking, was SOB but also hip/knee and old age Grands (Andreia-12 and Natasha- 18; [employer] - 2023) Eyes:Cataract - no change - in one eye (OS)- early. Early macular degeneration (Dr. Martinez). Taking vitamins BID. trouble because of need to keep vitamins separate from welchol (bid) and thyroid (o/n). Neck:no difficulty swallowing; no masses Heart:no rapid heart rate; no palpitations; no fluttering; no chest pain; no tightness or pressure; EKG- reportedly normal in past. GI:no constipation; no diarrhea; up/down. 2-4x per day. Neurological:no tremor; no insomnia (Not bad. (occ Trazodone- 1/2 pill) and melatonin and diphenhydramine.);anxiety(occasional at night. prn lorazepam); Lorazepam for RLS. 1/2 pill since no NSAIDs but still trouble falling asleep. In general sleeps well with CPAP - knees wake her up at 3AM. 04/10: left knee hurts- no clear injury Ongoing (02/07): Asked PCP for lorazepam and diazepam- told she would only get one (got lorazepam).Notes:-HYPERLIPIDEMIA:LIPIDS: see med schedule in other section.Slo-niacin (1000 mg at HS) and zetia and cholestoff (bid) and welchol (bid).Started back on generic fish oil (one tab bid). Vascepa gave her s/e. OFF STATINS- pravachol (30 mg- 10 AM and 20PM).Repatha- had severe GI s/e (diarrhea- couldn't leave the house)Discussed option of Bempedoic acid (per NEJM). 04/11: Can't tolerate welchol BID. Will go off when runs out because of olivas increase. May go back on Icosapent Ethyl when done (reviewed- only helps TG). LAB RESULTS (LIPIDS):02/09: 235/234//24: 236/151/54/182;05/10; 229/203/46/142;02/08: 248/255//23: 225/191//23: 242/254/44/22401: [phone];02/07: 267/185/47/183;.: [phone]/22: 241/254/44/44610: 204/210/: [phone]. on niacin/zetia. Suggest she look into cost of PCSK-9i.08/06: 243/320 (was 230) /47 (was 50) /132 (was 145)10/05.................................. ...234/280 /46 /81850/19................................. ..220/207 (was 289)/50 (was 48)/1296/2019: ..............................224/303 (was 254) /46 (was 55) /117 (was 158)Before was .........................297/297 (201)/56/182 (was 139 on statin)Before was .........................205/216 (was 269)/48 (was 55)/114 (was 97)Before was ........................194/174 (was 318)/52/107 (was 93)Before was ........................177/216/40/94 (10/2016)Before was.........................208/231/47/115 (03/2016)Before was .......................197/180/53/108 (10/2015) LDL was 99 in 08/01;Before was .......................206/168/56/138 (04/2015)Before was .......................188/130/51/120;Prev iously:..................LDL = 112 (07/03)201/163/53/127; was 196/139/50/129Lipids from 09/11/12- ....194/142/52/133. PCP is Rosario Crabtree (did full exam- liked him).Hand Surgeon: Love (likes him).PHYSIATRY: Roselia Follow-Up: hypothyroidismFollow-Up: benign hypertensionFollow-Up: morbid obesityFollow-Up: mixed hyperlipidemiaFollow-Up: glucose level outside reference rangeDiabetes Type IILV on 10/09Last labs on 02/09 A1C -5.8Labs cuedLast bone density on 03/11-bmcPT had Ultrasound of liver on 03/11Pt does not check blood sugarsPT has static to left leg and planter fascitis to right footLeft with knee arthritis F/U for hypothyroid, hyperlipidemia, DM (2019) with known elevated CPK levels independent of statin tx. PAST MED HX(updated)Sleep apnea ([facility] at [facility])- on CPAP.FibromyalgiaPast hx of herniation of C5-6 and C6-7- uses traction at home.NAFLD-04/10: Trouble with med for Miguel Degen- doesn't get digested. Tried to break it open- tastes awful.Carpal tunnel at night. (radial or ulnar- not usually both).10/09: Carpal tunnel injection- helped. Thumb tendonitis- helped.04/11: help from arthritis gloves.Plantar fasciitis on right (on-line exercises) and sciatica on left (improving with exercises).PCP increased atenolol to 50. may add CCB. 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 Used to do yoga. Pre-COVD: cruises with daughter(Chika).Ongoing: gym for water aerobics. Goes to [place] regularly- grands there.Losses of friends/family:08/06: Lost 2 friends to COVID. Grandson of good friend hung himself (age 11)- problems at home/school.04/10: recent deaths- pancreatic CA (80 y.o). 48 y.o. esophageal CA (smoker). 53 y.o. nephew in sleep. Big goal for pt- Motivated to see Andreia into college (2029) 02/06: Besides helping with kids, re-did deck (scraped, repaired) and also shed and cabinets and repainted chairs/tables. Caulking in bath. Fixed windows too. Drinks 1/2 gallon and 2 scoops of powdered gatorade and mixes with tonic water). Some exercises for arthritis.02/07: In [place] - [place] commented on healthy foods for dinner. Gardening for activity. Uses gatorade (with sugar)- powder only comes with sugar- can't afford bottles w/o sugar.04/10: active- gardening, etc.10/09: spring cleaning to get rid of mice. Grands have come to visit.04/11: quit gym (M/S sx too much)- does chair yoga. Also yard work. FAMILY Hx(updated)Son- more communicative.Brother (80 in 2022)- had stent 2 years ago. heavier than pt.Younger brother- not much contact. Genoveva/Patricia (daughter) ok. 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 Grands (7 years apart- adopted): Natasha Salinas (2022). doing well (04/10). Not as much sem. Andreia (2010)- Seen at Pedi Neuro at [facility]. 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 1 cm. but concern if over 7 mm. left streak - left temporal (left). some rojas matter abnormalities noted.04/10: 7th grade- hard at first but doing better (math/science zero's -> 60s). On swim team.(their half sister has microcephaly (not the ones with her at video visit 2019))10/09: Problems not turning in papers.04/11: Andreia allergic to COVID vaccine. Had COVID in summer. MYALGIAS WITH/WITHOUT ELEVATED CK LEVELS:Has had chronic pain (mostly joint, not muscle)- has not correlated with elevated CK levels (worth noting that CK up even when not on statin meds). 05/05: PCP Mila did CK and it was >900. Off statin and CK down to 500s.Injection in buttocks (05/05 and before in 07/2015). Didn't help much. 2019: Muscles slowly recovering after stopped pravastatin. Better up to top of thighs (still hurt when walks). Physiatry for right hip pain. Shoulders too. Has banisters on both sides of stairs and bath. Carrying laundry, cannot go down stairs (afraid of balance).- Continues to go down backwards if carrying something big/bulky.04/11: No changes. -MUSCULOSKELETAL:Overall, Neurontin has made the most difference in m/s sx. But decreased dose due to weight gain effects.Gabapentin: 300 during day prn. Takes 600 at night. Has been 600--900. was 1200. Multiple issues not clearly related to statin use.Multiple courses of steroid injections in back (L4-L5; didn't do much good).After foot injection, also OK (09/12/15)10/09: Recent hand/thumb injections. helped.04/11: left sciatica and right plantar fasciitis. MUSCLE CRAMPS- Less with tonic water (1/2 gallon mixed with scoop of gatorade)Also restless legs- takes ativan and helps- also sleeps better.She feels ativan helps with restless legs and valium helps more with leg pain.*PCP has told her she can only have one Rx for benzos. *Occ 1/2 ativan- helps when pain from arthritis is too severe. She's using ativan sparingly.04/10: Cramps worse lately. Most nights.04/11: Ongoing. Roselia told to try B-complex, Mg, CoQ10. SHOULDER SX (chronic)- on/off since x of herniation of C5-6 and C6-7- uses traction at home.Have discussed option of CBD- encouraged her to try topical to see if it helps. Ultimately, may be an option to see about medical MJ. Discussed trying to avoid high dose continuous NSAIDS due to renal problems.2022- traction used prn. Topical voltaren helping BONE HEALTH:BMD in 08/05 ([facility]):Region............................ .......BMD........T-score.....Classificati on AP Spine (L1-L4)..............1.141............0.9. ........NormalFemoral Neck (Right)....0.826............-0.2.......Nor malTotal Hip (Right)..............1.065............1.0. .......Normal Concerned about CBC with MCV of 100.3 (02/08). Heme friend said to check q 6m.- Pt. advised to discuss PCP. SWEATS WITH YARD WORK:02/07: Sweats while doing yard work.04/10: Encourage checking BG to see if low. In past, discussed differential of angina equivalent or hypoglycemia as well as option of dehydration.Pt. drinks gatorade (with sugar) and rests and feels better. Suggests she could have cardiac w/u and/or test BG.10/09: Still gets sweats. Reviewed concerns about possible link to low BG or CAD.04/11: As above- no real change. ROS:No f/c.OCC H/A (can be above eyes- told it was TMJ by ENT).No COVID.Not dizzy with standing in AM.No n/v. No abdominal pain. Restless leg sx- has been upset that no one will give her lorazepam.Eczema intermittent as before (maybe something under breast- says it's not fungus). David Green MD [address] [place] [address], [place], [phone], [facility] 4 15:07:03 OBGyn Episode No OBEpisode recorded.
== END 2024-09-01 12:13 | disposition home or self-care (01) ==
LOC: HO.HMCH 10:58
PROVIDERS: PCP Internal Medicine; Visit Provider Internal Medicine
DX: E11.65 Type 2 diabetes mellitus with hyperglycemia (principal); E78.00 Pure hypercholesterolemia, unspecified; E03.9 Hypothyroidism, unspecified; K75.81 Nonalcoholic steatohepatitis (NASH); G47.33 Obstructive sleep apnea (adult) (pediatric); F41.1 Generalized anxiety disorder; I10 Essential (primary) hypertension; R92.1 Mammographic calcification found on diagnostic imaging of breast; N39.41 Urge incontinence; K04.7 Periapical abscess without sinus; R20.0 Anesthesia of skin

== ENCOUNTER → 2024-09-01 10:57 | Outpatient (BNVA) | payer MEDICARE, SELFPAY | PROVIDERS: PCP Internal Medicine; Visit Provider Internal Medicine | DX: E11.65 Type 2 diabetes mellitus with hyperglycemia (principal); E78.00 Pure hypercholesterolemia, unspecified; E03.9 Hypothyroidism, unspecified; K75.81 Nonalcoholic steatohepatitis (NASH); G47.33 Obstructive sleep apnea (adult) (pediatric); F41.1 Generalized anxiety disorder; I10 Essential (primary) hypertension; R92.0 Mammographic microcalcification found on diagnostic imaging of breast; N39.41 Urge incontinence; K04.7 Periapical abscess without sinus; R20.0 Anesthesia of skin; Z79.84 Long term (current) use of oral hypoglycemic drugs; Z79.899 Other long term (current) drug therapy | CPT/HCPCS: 96127; 99212 ==

== ENCOUNTER 2025-01-10 12:53 | Outpatient (AMB) | payer MEDICARE, SELFPAY | END 2025-01-11 13:53 | disposition home or self-care (01) | LOC: HO.HMGAL 12:53 | PROVIDERS: PCP Internal Medicine; Visit Provider Registered Nurse Emergency | DX: J30.89 Other allergic rhinitis (principal) | CPT/HCPCS: 95117; 95165 ==

== ENCOUNTER 2025-02-07 15:18 | Outpatient (AMB) | payer MEDICARE, SELFPAY | END 2025-02-07 15:20 | disposition home or self-care (01) | LOC: HO.HMGAL 15:18 | PROVIDERS: PCP Internal Medicine; Visit Provider Registered Nurse Emergency | DX: J30.89 Other allergic rhinitis (principal) | CPT/HCPCS: 95117; 95165 ==

== ENCOUNTER 2025-03-07 15:10 | Outpatient (AMB) | payer MEDICARE, SELFPAY | END 2025-03-07 15:11 | disposition home or self-care (01) | LOC: HO.HMGAL 15:10 | PROVIDERS: PCP Internal Medicine; Visit Provider Registered Nurse Emergency | DX: J30.89 Other allergic rhinitis (principal) | CPT/HCPCS: 95117; 95165 ==

== ENCOUNTER 2025-03-08 11:25 | Outpatient (AMB) | payer MEDICARE, SELFPAY ==
[2025-03-08 11:34] VITALS: BP 148/80; PULSE 78; TEMP 36.1; O2SAT 96; BMI 43.0
--- NOTE | 2025-03-08 11:34 | A.OFFPC_ITS ---
Vital Signs 03/08/25 11:34 03/08/25 12:07 Height 5 ft 8 in Weight 283 lb BMI 43.0 BP 148/80 H 138/60 Blood Pressure Location Lt brachial Lt brachial Position Sitting Sitting Pulse 78 Pulse Source Pulse Oximeter Temp 97.0 F Temp Source Temporal Artery Scan Pulse Oximetry (%) 96 Oxygen Delivery Method Room Air Intake Visit Reasons: PE DM Allergies beeswax (BEESWAX) Allergy (Severe, Verified 03/08/25 11:38) ANAPHYLAXIS adhesive tape (ADHESIVE TAPE) Allergy (Mild, Verified 03/08/25 11:38) RASH ciprofloxacin (From CIPRO) Allergy (Mild, Verified 03/08/25 11:38) FIBROMYALGIA ISSUES Afalzzv-VTJ-VnR Reductase Inhibitor (ECTXBHK-XZB-ONH REDUCTASE INHIBITOR) Allergy (Mild, Verified 03/08/25 11:38) MUSCLE BREAK DOWN succinylcholine (SUCCINYLCHOLINE) Allergy (Mild, Verified 03/08/25 11:38) CANNOT WALK evolocumab (From Repatha SureClick) Adverse Reaction (Severe, Verified 03/08/25 11:38) Diarrhea metoprolol Adverse Reaction (Severe, Verified 03/08/25 11:38) Dizziness topiramate Adverse Reaction (Severe, Verified 03/08/25 11:38) Anxiety icosapent ethyl (From Vascepa) Adverse Reaction (Intermediate, Verified 03/08/25 11:38) Diarrhea lisinopril Adverse Reaction (Intermediate, Unverified 03/08/25 11:38) cough Medication List - Last Reconciled 03/08/25 by Rosario Castillo MD ascorbate calcium (vitamin C) 500 mg PO DAILY aspirin 81 mg PO DAILY atenolol 50 mg PO DAILY 90 days Bacillus coagulans cells PO calcium carbonate (Calcium 600) 600 mg PO DAILY celecoxib (Celebrex) 200 mg PO DAILY cholecalciferol (vitamin D3) 25 mcg PO DAILY colesevelam (WelChol) 625 mg PO BID cyanocobalamin (vitamin B-12) 1,000 mcg PO DAILY diazepam 5 mg PO BEDTIME PRN echinacea 760 mg PO DAILY estradiol 0.01%(0.1mg/gram) 0.25 appful vaginal 2XW ezetimibe (Zetia) 10 mg PO DAILY ferrous sulfate (FeroSul) 325 mg PO DAILY fluticasone propionate 50 mcg/actuation 2 sprays intranasal DAILY gabapentin 600 mg PO BEDTIME gabapentin 300 mg PO QAM garlic 1,000 mg PO DAILY jercwgso-vxn-unlxy-hdu830-llek 500-500-66.7 mg (Ftxyjcwdsvl-Rxgmnygthiz-GNM (with antiox)) tabs PO icosapent ethyl (Vascepa) 2 grams (4 x 0.5 gram) PO BID levothyroxine (Levoxyl) 150 mcg PO DAILY lorazepam (Ativan) 0.5 mg PO BEDTIME PRN magnesium 250 mg PO DAILY melatonin 15 mg PO BEDTIME PRN meloxicam 15 mg PO DAILY metformin 1,000 mg PO BID vgtnrtuk-kmwq-WS-calcium-mins 18 mg iron-400 mcg-500 mg Ca (Women's One Daily) tabs PO niacin 500 mg PO BID omega 3-aho-yjm-fish oil 1,200 (144-216) mg (Fish Oil) caps PO oxybutynin chloride ER 5 mg PO DAILY pantoprazole (Protonix) 40 mg PO DAILY pioglitazone (Actos) 30 mg PO DAILY pyridoxine (vitamin B6) 100 mg PO DAILY tizanidine 4 mg PO BEDTIME PRN [trazodone 25 mg PO .QD] triamcinolone acetonide 0.1% 1 appl topical DAILY venlafaxine ER 150 mg PO DAILY zinc acetate (Galzin) 50 mg PO DAILY Tobacco use date assessed: 03/08/25 Fall risk assessment: No Falls in past year Last assessed Fall Risk: 03/08/25 Dental Screening Dental Screen Date: 03/08/25 Did you have a dental visit in the last 12 months?: Yes Did you have a dental problem in the last 6 months where you did not have access to dental care?: No Was dental information given to patient?: Patient has dentist [facility] Medical History Diverticular disease Surgical History H/O vaginal hysterectomy Social History Housing: House Alcohol intake: never Patient Tobacco Use Status: Never used Tobacco Tobacco use type: Cigarette e-Cigarette/Vaping Use: Never Used Second Hand Smoke Exposure: No service: No Current occupational status: retired and disabled Cognitive needs: No Hearing needs: No Vision needs: Yes Questionnaire PHQ-9 Over the last 2 weeks, how often have you been bothered by any of the following problems? 1. Little interest or pleasure in doing things: not at all 2. Feeling down, depressed, or hopeless: not at all 3. Trouble falling or staying asleep, or sleeping too much: not at all 4. Feeling tired or having little energy: not at all 5. Poor appetite or overeating: not at all 6. Feeling bad about yourself - or that you are a failure or have let yourself or your family down: not at all 7. Trouble concentrating on things, such as reading the newspaper or watching television: not at all 8. Moving or speaking so slowly that other people could have noticed. Or the opposite - being so fidgety or restless that you have been moving around a lot more than usual: not at all 9. Thoughts that you would be better off or of hurting yourself in some way: not at all Total score: 0 Depression Screening Interpretation: Negative Depression Screening Done: Yes Source: Developed by Drs. Mann Joseph, Lynn Calderón, Alexi Mckeon and colleagues, with an educational kosta from [employer]. Thrive Questionnaire Date Thrive assessed: 03/07/25 I am a: Patient What is your living situation today?: I have a steady place to live Within the past 12 months, did the food you bought not last and you didn't have the money to get more?: Never true Within the past 12 months, did you worry whether your food would run out before you got money to buy more?: Never true Do you have trouble paying for medicines?: Yes Do you have trouble getting transportation to medical appointments?: No Do you have trouble paying your heating and electricity bill?: Yes Do you have trouble taking care of your child, family member or friend?: No Do you have trouble with day-to-day activities such as bathing, preparing meals, shopping, managing finances, etc.?: No Are you currently unemployed and looking for a job?: No Are you interested in more education?: No Currently or been in a relationship where the following occur: No concerns reported THRIVE Score: 1 AUDIT C Alcohol Use Questionnaire (AUDIT-C) 1. How often do you have a drink containing alcohol?: Never 3. How often do you have six or more drinks on one occasion?: Never Total Score: 0 TROY-7 AMB Questionnaire TROY-7 Date TROY - 7 assessed: 05/26/24 Feeling nervous, anxious, or on edge: 0 = Not at all Not being able to stop or control worryin = Not at all Worrying too much about different things: 0 = Not at all Trouble relaxin = Not at all Being so restless that it is hard to sit still: 0 = Not at all Becoming easily annoyed or irritable: 0 = Not at all Feeling afraid as if something awful might happen: 0 = Not at all Total TROY-7 score (0-4 normal; 5-9 mild; 10-14 moderate; 15-21 severe): 0 Source: Developed by Drs. Mann Joseph, Lynn Calderón, Alexi Mckeon and colleagues, with an educational kosta from [employer]. Review of Systems Const Denies poor appetite and Denies weakness Eyes Denies no additional complaints ENT Reports Normal hearing present, Denies dizziness, Denies nasal congestion, Denies tinnitus and Denies sore throat Card Denies chest pain, Denies syncope, Denies rapid heart rate and Denies dyspnea Resp Denies cough and Denies dyspnea GI Denies change in stool character, Reports constipation, Denies diarrhea, Denies nausea and Denies vomiting Denies urinary frequency, Denies difficulty voiding and Denies dysuria Neuro Reports Normal hearing present, Denies confusion, Denies dizziness, Denies syncope and Denies weakness Psych Denies confusion Physical exam (Primary Care) Vital Signs: Last Vital Signs Temp 97.0 F 03/08/25 11:34 Pulse 78 03/08/25 11:34 BP 138/60 03/08/25 12:07 Pulse Ox 96 03/08/25 11:34 Oxygen Delivery Method Room Air 03/08/25 11:34 BMI result Body Mass Index 43.0 Tobacco/Smoking Status: Tobacco use Status Tobacco use date assessed 03/08/25 03/08/25 11:39 Patient Tobacco Use Status Never used Tobacco 03/08/25 11:39 Tobacco use type Cigarette 03/08/25 11:39 e-Cigarette/Vaping Use Never Used 03/08/25 11:39 PHQ-9: PHQ-9 Score PHQ-9: Total score 0 03/08/25 11:46 Depression Screening Interpretation: Negative Thrive Assessment: Date of Thrive Assessment Date Thrive assessed 03/07/25 03/08/25 11:39 Currently or been in a relationship where the following occur: No concerns reported Const General: No confusion Orientation/consciousness: No confusion HENMT Head: Yes normocephalic Ears: external ears normal and TM's normal bilaterally Face and sinus: Yes normal facial exam Mouth: moist mucous membranes Throat: Yes tonsils normal Eyes Conjunctivae: conjunctivae normal Pupils: Equal, round and reactive pupils present and Pupil accommodation reflex normal Direct Ophthalmoscopy: normal light reflex Neck Neck: No lymphadenopathy Thyroid: Thyroid normal Chest Chest palpation & inspection: normal inspection of the chest Resp Effort & Inspection: normal respiratory effort and no audible wheezes Auscultation: clear to auscultation bilaterally, no crackles, no wheezes and lung sounds not diminished Cardio Rate: regular rate Rhythm: regular rhythm Peripheral pulses: radial pulses present and dorsalis pedis present GI Palpation (GI): no masses Auscultation: normal bowel sounds and normoactive bowel sounds Rectal Exam - Female: deferred Skin General skin exam: no rashes or lesions noted Rashes: no rashes Neuro General: No confusion Cranial nerves: Yes Equal, round and reactive pupils present and Yes Normal hearing present Cognition (Neuro): normal cognition Gait exam (Neuro): Normal gait present Motor exam (neuro): 5/5 motor strength present throughout Deep tendon reflexes (DTR's): Right brachioradialis reflex intensity grade: 2+, Left brachioradialis reflex intensity grade: 2+, Right patellar reflex intensity grade: 2+ and Left patellar reflex intensity grade: 2+ Extrem General: No edema Results AMB Hemoglobin A1c AMB Hemoglobin A1c 5.7 % Last Edit by Carissa Wild CMA on 03/08/25 12:59 Results Reviewed Results Reviewed: Laboratory Last Values Hgb A1c (Clinic) 5.7 % (4.0-6.0) 03/08/25 12:58 Coding Level of Care Code Est Pt Prev Care >65y(51898) Diagnoses Annual physical exam Z00.00 Type 2 diabetes mellitus with hyperglycemia E11.65 Hypertension I10 Hypercholesterolemia E78.00 Generalized anxiety disorder F41.1 Hypothyroid E03.9 BROWN (nonalcoholic steatohepatitis) K75.81 Obstructive sleep apnea G47.33 Assessment & Plan Assessment & Plan (1) Annual physical exam: Code(s): Z00.00 - Encounter for general adult medical examination without abnormal findings Category: Medical Plan: Patient is advised to eat healthy, keep well hydrated, keep active and have adequate sleep. (2) Type 2 diabetes mellitus with hyperglycemia: Comment: [facility] Code(s): E11.65 - Type 2 diabetes mellitus with hyperglycemia Category: Medical Plan: Decrease the amount of carbohydrate intake, pasta, bread, rice and potatoes are all sugar and that is aside from all the sweet stuff, remember that fruits are good but they are Sweet also. Hemoglobin A1c goal of less than 7.0. Patient is good on metformin a 1000 mg twice a day and pioglitazone (3) Hypertension: Code(s): I10 - Essential (primary) hypertension Category: Medical Plan: Continue with blood pressure medication. Decrease salt intake and exercise continue with atenolol 50 mg once a day patient had a cough with lisinopril (4) Hypercholesterolemia: Code(s): E78.00 - Pure hypercholesterolemia, unspecified Category: Medical Plan: Avoid fried foods, chicken skin, eggs, butter margarine, pastries and meat. Be it pork or beef they have a lot of cholesterol patient can not take statins and can not tolerate PCSK9 on Welchol Zetia niacin concerns about cost (5) Generalized anxiety disorder: Comment: decline counselling 08/2023 Code(s): F41.1 - Generalized anxiety disorder Category: Medical Plan: Continue with present medication (6) Hypothyroid: Code(s): E03.9 - Hypothyroidism, unspecified Category: Medical Plan: Continue with thyroid medication (7) BROWN (nonalcoholic steatohepatitis): Code(s): K75.81 - Nonalcoholic steatohepatitis (BROWN) Category: Medical Plan: Low-fat diet and exercise (8) Obstructive sleep apnea: Comment: CPAP [address] [facility] Code(s): G47.33 - Obstructive sleep apnea (adult) (pediatric) Category: Medical Plan: Continue to use the CPAP more than 4 hours a night and benefits from this Plan History of Present Illness The patient is a 80-year-old female presenting for a physical examination. She has a history of diabetes mellitus, managed with metformin and pioglitazone, maintaining a hemoglobin A1c of 5.7%. Her blood sugar levels have been normal, and she continues to adhere to her medication regimen. The patient also has hypothyroidism, for which she is on thyroid medication, and her thyroid function tests are normal. Hypercholesterolemia is another concern, with an LDL level of 450 mg/dL and total cholesterol of 245 mg/dL. She has experienced severe gastrointestinal side effects from statins and other lipid-lowering medications, leading to discontinuation. She is unable to tolerate statins due to increased creatine kinase levels. The patient has hepatic steatosis and obstructive sleep apnea, for which she uses a CPAP machine for four hours nightly, experiencing benefits from its use. She has generalized anxiety disorder and hypertension, both of which are managed with medication. The patient reports cataracts and diabetic retinopathy, with bilateral degeneration noted. She has a history of diverticulitis, which was treated with antibiotics and dietary modifications. Health Maintenance - Mammogram up to date as of February 2025 - Colonoscopy up to date as of November 2019 - Bone density scan in February 2024 Social History Review of Systems Physical Exam General: Cooperative, healthy appearing, comfortable, no acute distress and well developed Orientation: Patient oriented x3 Limitations: No limitations Head: Normal to inspection Ears: Hearing grossly normal bilaterally Nose: Normal external nose present Face and sinus: Normal facial exam Eyes: Appearance normal, both eyes and all related structures. Noted cataract and diabetic retinopathy with bilateral degeneration. Neck: Normal visual inspection and Yes full ROM Respiratory: Normal respiratory effort and able to speak in complete sentences. Clear to auscultation bilaterally Cardiovascular: Regular rate and rhythm. Normal S1 and S2 GI: Normal to inspection. Soft to palpation and nontender. Patient experienced severe GI side effects from medication. Skin: No rashes or lesions noted Neuro: Patient oriented x3 Extremities: Normal to inspection Results - Labs: Creatinine 1.14 mg/dL, normal blood sugar, normal electrolytes, normal liver function, LDL 450 mg/dL, total cholesterol 245 mg/dL, triglycerides 239 mg/dL, HDL 51 mg/dL, hemoglobin A1c 5.7%, normal thyroid function Plan Patient was informed and verbally consented to the use of an ambient scribe for clinic note documentation during this visit. 1. Diabetes Mellitus The patient's diabetes mellitus is well-controlled with metformin and pioglitazone, maintaining a hemoglobin A1c of 5.7%. She should continue her current medication regimen and monitor her blood sugar levels regularly. 2. Hypercholesterolemia The patient has hypercholesterolemia with an LDL level of 450 mg/dL and total cholesterol of 245 mg/dL. She is unable to tolerate statins due to increased creatine kinase levels and severe gastrointestinal side effects from other lipid-lowering medications. Alternative lipid-lowering strategies should be considered, and she should continue with dietary modifications and regular follow-up for lipid profile monitoring. 3. Hypothyroidism The patient's hypothyroidism is managed with thyroid medication, and her thyroid function tests are normal. She should continue her current thyroid medication and have regular thyroid function tests to ensure stability. 4. Obstructive Sleep Apnea The patient uses a CPAP machine for obstructive sleep apnea, which she finds beneficial when used for four hours nightly. She should continue using the CPAP machine as prescribed and report any changes in symptoms. 5. Diverticulitis The patient has a history of diverticulitis, which was previously treated with antibiotics and dietary modifications. She should adhere to dietary recommendations and seek medical attention if symptoms recur. Discussion Notes Patient Instructions Orders: Orders Complete Blood Count Auto Diff Today E11.65 - Type 2 diabetes mellitus with hyperglycemia Vitamin B12 and Folate Today E11.65 - Type 2 diabetes mellitus with hyperglycemia IRON PROFILE Today E11.65 - Type 2 diabetes mellitus with hyperglycemia AMB Hemoglobin A1c Today Z13.9 - Encounter for screening, unspecified Ferritin Today E11.65 - Type 2 diabetes mellitus with hyperglycemia Reticulocyte Count Today E11.65 - Type 2 diabetes mellitus with hyperglycemia Medications: New icosapent ethyl (Vascepa) 2 grams (4 x 0.5 gram) PO BID 90 caps 0RF E11.65 - Type 2 diabetes mellitus with hyperglycemia Refilled oxybutynin chloride ER 5 mg PO DAILY 90 tabs 3RF N39.41 - Urge incontinence atenolol 50 mg PO DAILY 90 tabs 3RF 90 days I10 - Essential (primary) hypertension
[2025-03-08 12:07] VITALS: BP 138/60
== END 2025-03-08 12:33 | disposition home or self-care (01) ==
LOC: HO.HMCH 11:26
PROVIDERS: PCP Internal Medicine; Visit Provider Internal Medicine
DX: Z00.00 Encounter for general adult medical examination without abnormal findings (principal); E11.65 Type 2 diabetes mellitus with hyperglycemia; I10 Essential (primary) hypertension; E78.00 Pure hypercholesterolemia, unspecified; F41.1 Generalized anxiety disorder; E03.9 Hypothyroidism, unspecified; K75.81 Nonalcoholic steatohepatitis (NASH); G47.33 Obstructive sleep apnea (adult) (pediatric); Z13.9 Encounter for screening, unspecified

== ENCOUNTER → 2025-03-08 11:25 | Outpatient (BNVA) | payer MEDICARE, SELFPAY | PROVIDERS: PCP Internal Medicine; Visit Provider Internal Medicine | DX: Z00.00 Encounter for general adult medical examination without abnormal findings (principal); E11.65 Type 2 diabetes mellitus with hyperglycemia; I10 Essential (primary) hypertension; E78.00 Pure hypercholesterolemia, unspecified; F41.1 Generalized anxiety disorder; E03.9 Hypothyroidism, unspecified; K75.81 Nonalcoholic steatohepatitis (NASH); G47.33 Obstructive sleep apnea (adult) (pediatric); Z79.84 Long term (current) use of oral hypoglycemic drugs; Z79.899 Other long term (current) drug therapy; Z99.89 Dependence on other enabling machines and devices; Z13.31 Encounter for screening for depression | CPT/HCPCS: 83036; 96127; 99397 ==

== ENCOUNTER 2025-03-28 15:32 | Outpatient (AMB) | payer MEDICARE, SELFPAY | END 2025-03-28 15:33 | disposition home or self-care (01) | LOC: HO.HMGAL 15:32 | PROVIDERS: PCP Internal Medicine; Visit Provider Registered Nurse Emergency | DX: J30.89 Other allergic rhinitis (principal) | CPT/HCPCS: 95117; 95165 ==

== ENCOUNTER 2025-05-02 15:41 | Outpatient (AMB) | payer MEDICARE, SELFPAY | END 2025-05-02 15:41 | disposition home or self-care (01) | LOC: HO.HMGAL 15:41 | PROVIDERS: PCP Internal Medicine; Visit Provider Registered Nurse Emergency | DX: J30.89 Other allergic rhinitis (principal) | CPT/HCPCS: 95117; 95165 ==